=== PATIENT | female | born 1960 | race Caucasian/White ===

== ENCOUNTER 2016-11-19 06:24 | Emergency (ER) | payer BC ==
[2016-11-19 06:32] VITALS: RESP 18
[2016-11-19] MEDS ORDERED: KETOROLAC 60 MG/2 ML VIAL IM STA (07:39)
[2016-11-19] MEDS ORDERED: predniSONE 20 MG TAB PO STA (07:39)
[2016-11-19] MEDS ORDERED: HYDROmorphone 2 MG/ML 1 ML SYRINGE IM STA (07:39)
--- NOTE | 2016-11-19 08:25 | XR ---
EXAMINATION TYPE: XR lumbosacral spine min 4V DATE OF EXAM: 11/19/2016 8:19 AM CLINICAL HISTORY: Low back pain for 3 weeks. TECHNIQUE: Frontal, lateral, and oblique images of the lumbar spine are obtained. COMPARISON: CT lumbar spine September 11, 2011. FINDINGS: There are 5 lumbar type vertebral bodies identified. The lumbar spine shows satisfactory alignment without evidence of acute fracture or dislocation. Vertebral body heights are within normal limits. There is mild multilevel disc space narrowing and spurring throughout the lumbar spine. Mild facet degenerative changes are felt present in lower lumbar spine. Cholecystectomy clips are seen in the overlying soft tissue. IMPRESSION: No acute fracture or dislocation is seen in the lumbar spine. Mild multilevel degenerati ve changes most pronounced in lower lumbar levels are redemonstrated.
[2016-11-19 08:27] LABS: Appearance,Urine Cloudy (Clear); Bacteria,Urine Rare /hpf; Bilirubin,Urine Negative (Negative); Glucose,Urine (UA) Negative (Negative); Ketones,Urine Negative (Negative); Leukocyte Esterase,Urine Negative (Negative); Mucus,Urine Occasional /hpf; Nitrite,Urine Negative (Negative); PH, Urine 5.5 (5.0-8.0); Particle Count 6930; Protein,Urine Trace (Negative); RBC,Urine 2 /hpf (0-5); Specific Gravity,Urine 1.024 (1.001-1.035); Squamous Epithelial Cell,Urine 2 /hpf (0-4); UA Billing (MACRO vs. MICRO) MICRO; Urobilinogen,Urine <2.0 mg/dL (<2.0); WBC,Urine 4 /hpf (0-5)
--- NOTE | 2016-11-19 09:26 | US ---
EXAMINATION TYPE: US venous doppler duplex LE LT DATE OF EXAM: 11/19/2016 8:55 AM COMPARISON: US on PACS CLINICAL HISTORY: Left knee pain radiating up thigh x 2 days. SIDE PERFORMED: Left VESSELS IMAGED: Common Femoral Vein Deep Femoral Vein Greater Saphenous Vein * Femoral Vein Popliteal Vein Small Saphenous Vein * Proximal Calf Veins (* superficial vessels) Grayscale, color Doppler, spectral Doppler imaging performed of the deep veins of the left lower extr emity. No abnormal luminal echoes, there is normal compression of the evaluated veins, normal spectra l waveforms and color-flow. Left Leg: Negative for DVT IMPRESSION: No evidence of deep venous thrombosis within the left lower extremity veins as described at or above the knee.
--- NOTE | 2016-11-19 09:30 | ED ---
General Adult HPI - General Chief complaint: Extremity Problem,Nontraumatic Stated complaint: leg pain Time Seen by Provider: 11/19/16 07:27 Source: patient, RN notes reviewed, old records reviewed Mode of arrival: wheelchair Limitations: no limitations - History of Present Illness Initial comments: This is a 56-year-old female in the ER for evaluation. Patient coming in here for evaluation of left anterior leg pain lateral leg pain severe shooting pain and numbness. Fullness. Patient is morbidly obese. Patient denies any trauma to the area. No trauma the back. No loss of bowel or bladder. No abdominal pain. No weakness in the leg, patient's able to actually the pain is worse with ambulation. Patient denies wearing tight clothes recently. Patient denies any history of similar symptoms. - Related Data Home Medications Medication Instructions Recorded Confirmed Acetaminophen Tab [Tylenol Tab] 1,000 mg PO Q6HR PRN 11/19/16 11/19/16 Hydrocodone/Acetaminophen [Vicodin 1 tab PO DAILY PRN 11/19/16 11/19/16 5-300 mg Tablet] Ibuprofen [Motrin] 800 mg PO Q8H PRN 11/19/16 11/19/16 Levothyroxine Sodium [Synthroid] 200 mcg PO DAILY 11/19/16 11/19/16 Lisinopril/Hydrochlorothiazide 1 tab PO DAILY 11/19/16 11/19/16 [Lisinopril-Hctz 20-12.5 mg Tab] buPROPion HCL [Bupropion HCl] 100 mg PO TID 11/19/16 11/19/16 Allergies Allergy/AdvReac Type Severity Reaction Status Date / Time No Known Allergies Allergy Verified 11/19/16 07:24 Review of Systems ROS Statement: Those systems with pertinent positive or pertinent negative responses have been documented in the HPI. ROS Other: All systems not noted in ROS Statement are negative. Past Medical History Past Medical History: Hypertension, Thyroid Disorder History of Any Multi-Drug Resistant Organisms: None Reported Past Surgical History: Section, Cholecystectomy Additional Past Surgical History / Comment(s): thryoidectomy, c-sect x 2 Past Psychological History: Depression Smoking Status: Never smoker Past Alcohol Use History: None Reported Past Drug Use History: None Reported General Exam - General Exam Comments Initial Comments: Paresthesias over her anterior lateral left thigh, no findings of bursitis and greater trochanter, no rash Limitations: no limitations General appearance: alert, in no apparent distress Head exam: Present: atraumatic, normocephalic, normal inspection Eye exam: Present: normal appearance, PERRL, EOMI. Absent: scleral icterus, conjunctival injection, periorbital swelling ENT exam: Present: normal exam, mucous membranes moist Neck exam: Present: normal inspection. Absent: tenderness, meningismus, lymphadenopathy Respiratory exam: Present: normal lung sounds bilaterally. Absent: respiratory distress, wheezes, rales, rhonchi, stridor Cardiovascular Exam: Present: regular rate, normal rhythm, normal heart sounds. Absent: systolic murmur, diastolic murmur, rubs, gallop, clicks GI/Abdominal exam: Present: soft, normal bowel sounds. Absent: distended, tenderness, guarding, rebound, rigid Extremities exam: Present: normal inspection, full ROM, normal capillary refill. Absent: tenderness, pedal edema, joint swelling, calf tenderness Back exam: Present: normal inspection Neurological exam: Present: alert, oriented X3, CN II-XII intact Psychiatric exam: Present: normal affect, normal mood Skin exam: Present: warm, dry, intact, normal color. Absent: rash Course Vital Signs 11/19/16 06:28 Temperature 97.6 F Pulse Rate 71 Respiratory 18 Rate Blood Pressure 146/68 O2 Sat by Pulse 96 Oximetry - Reevaluation(s) Reevaluation #1: 11/19/16 09:29 Patient's pain at this time is improved Medical Decision Making - Medical Decision Making 56 female who is morbidly obese coming with left anterior thigh pain. Patient does appear to have meralgia paresthetica, lateral femoral cutaneous nerve syndrome. Patient at this time is pain is pain controlled will be discharged home - Lab Data Lab Results 11/19/16 Range/Units 07:50 Urine Color Yellow Urine Appearance Cloudy H (Clear) Urine pH 5.5 (5.0-8.0) Ur Specific [place] 1.024 (1.001-1.035) Urine Protein Trace H (Negative) Urine Glucose (UA) Negative (Negative) Urine Ketones Negative (Negative) Urine Blood Trace H (Negative) Urine Nitrate Negative (Negative) Urine Bilirubin Negative (Negative) Urine Urobilinogen <2.0 (<2.0) mg/dL Ur Leukocyte Esterase Negative (Negative) Urine RBC 2 (0-5) /hpf Urine WBC 4 (0-5) /hpf Ur Squamous Epith Cells 2 (0-4) /hpf Urine Bacteria Rare H (None) /hpf Hyaline Casts 5 H (0-2) /lpf Urine Mucus Occasional H (None) /hpf - Radiology Data Radiology results: report reviewed (X-ray lumbosacral spine negative for acute disease, ultrasound left lower extremity is negative for DVT), image reviewed Disposition Clinical 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
[2016-11-19] MEDS ORDERED: diphenhydrAMINE 25 MG CAP PO STA (09:43)
[2016-11-19] MEDS ORDERED: ONDANSETRON ODT 4 MG TAB PO STA (09:43)
[2016-11-19 09:48] VITALS: BP 134/69; PULSE 79; TEMP 97.4
== END 2016-11-19 09:48 | disposition home or self-care (01) ==
LOC: EC 06:24
DX: G57.12 Meralgia paresthetica, left lower limb (principal); M51.86 Other intervertebral disc disorders, lumbar region; E66.01 Morbid (severe) obesity due to excess calories; I10 Essential (primary) hypertension; E07.9 Disorder of thyroid, unspecified; F32.9 Major depressive disorder, single episode, unspecified; Z79.899 Other long term (current) drug therapy; Z79.52 Long term (current) use of systemic steroids
CPT/HCPCS: 96372 ×3; 99284 ×2; 81001; 87086; 72110; 93971; J1170; J1885; J7512

== ENCOUNTER → 2017-01-05 | Outpatient (CLI) | payer BC ==
--- NOTE | 2017-01-05 11:07 | XR ---
EXAMINATION TYPE: XR lumbar spine 2 or 3V DATE OF EXAM: 01/05/2017 10:54 AM COMPARISON: NONE HISTORY: Low back pain radiating to left TECHNIQUE: 3 view lumbar spine FINDINGS: There is narrowing of the L5-S1 disc height. Remaining disc heights are preserved. Vertebra l body heights are preserved. There is spondylosis present. 5 lumbar-type vertebral bodies are presen t. Pedicles are intact. IMPRESSION: 1. Degenerative disc changes L5-S1
--- NOTE | 2017-01-05 11:08 | XR ---
EXAMINATION TYPE: XR Hip Complete LT DATE OF EXAM: 01/05/2017 10:54 AM COMPARISON: NONE HISTORY: Left hip pain TECHNIQUE: 2 views left hip FINDINGS: Joint spaces preserved. Femoral head articulates with the acetabulum. No acute fractures ar e evident. IMPRESSION: 1. Normal 2 view left hip
== END ==
LOC: RADXRMAIN 10:32
PROVIDERS: ATTEND Internal Medicine
DX: M25.552 Pain in left hip (principal); M51.37 Other intervertebral disc degeneration, lumbosacral region
CPT/HCPCS: 72100; 73502

== ENCOUNTER → 2017-03-25 | Outpatient (CLI) | payer BC ==
--- NOTE | 2017-03-26 12:52 | MM ---
Reason for exam: screening (asymptomatic). Last mammogram was performed 1 year ago. History: Patient had first child at age 36. Family history of breast cancer in maternal aunt at age 55. 2 benign excisional biopsies of the left breast, 1995. Took hormonal contraceptives for 7 years beginning at age 28. Physical Findings: A clinical breast exam by your physician is recommended on an annual basis and results should be correlated with mammographic findings. MG Screening Mammo w CAD Bilateral CC and MLO view(s) were taken. Prior study comparison: March 15, 2016, bilateral MG 3d diag mammo w/cad [facility]. March 09, 2015, bilateral MG screening mammo w CAD. March 08, 2014, bilateral MG screening mammo w CAD. The breast tissue is almost entirely fat. No significant changes when compared with prior studies. ASSESSMENT: Negative, BI-RAD 1 RECOMMENDATION: Routine screening mammogram of both breasts in 1 year.
== END ==
LOC: RADMAMWWP 09:39
PROVIDERS: ATTEND Internal Medicine
DX: Z12.31 Encounter for screening mammogram for malignant neoplasm of breast (principal)

== ENCOUNTER → 2017-07-10 | Outpatient (CLI) | payer BC ==
[2017-07-11 00:44] LABS: Estradiol 54.8 pg/mL
== END | disposition home or self-care (01) ==
LOC: MMGSC 13:47
PROVIDERS: ATTEND Obstetrics & Gynecology
DX: Z78.0 Asymptomatic menopausal state (principal)
CPT/HCPCS: 36415; 82670; 83001

== ENCOUNTER → 2017-08-09 | Outpatient (CLI) | payer BC ==
[2017-08-09 13:06] LABS: Basophils % (A) 1 %; CH 29.6; CHCM 31.7; Eosinophils # (A) 0.3 k/uL (0-0.7); Eosinophils % (A) 3 %; HDW 2.71; HGB 13.6 gm/dL (11.4-16.0); Hypochromasia Slight; Luc # (Auto) 0.11; Luc % (Auto) 1; Lymphocytes # (A) 3.2 k/uL (1.0-4.8); Lymphocytes % (A) 36 %; MCH 30.4 pg (25.0-35.0); MCHC 32.3 g/dL (31.0-37.0); MCV 93.9 fL (80.0-100.0); Monocytes # (A) 0.4 k/uL (0-1.0); Monocytes % (A) 4 %; Neutrophils # (A) 4.9 k/uL (1.3-7.7); Neutrophils % (A) 55 %; RBC 4.48 m/uL (3.80-5.40); RDW 14.1 % (11.5-15.5); WBC 8.8 k/uL (3.8-10.6); WBC (Perox) 8.89
--- NOTE | 2017-08-15 17:13 | HP ---
HISTORY AND PHYSICAL DATE OF ADMISSION: 08/19/2017. HISTORY: This is a 56-year-old, 3, para 2-0-1-2 woman with postmenopausal bleeding. She was found on endometrial biopsy to have a simple endometrial hyperplasia without atypia. She is scheduled to undergo diagnostic hysteroscopy and D and C. ALLERGY: LORTAB CAUSES VOMITING. MEDICATIONS: 1. Lisinopril/hydrochlorothiazide 20/12.5 mg. 2. Motrin 800 mg p.r.n. 3. Wellbutrin 200 mg daily. 4. [place] 5/325 mg p.r.n. PAST MEDICAL HISTORY: Obesity, hypothyroidism, hypertension, depression, and arthritis. PAST SURGICAL HISTORY: D and C, 2007 and 1995, partial thyroidectomy, knee replacement, hip replacement, hernia surgery, and section. 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 She is a G3, P2 with a history of two sections and one miscarriage. SOCIAL HISTORY: She is . Negative for tobacco, alcohol, and drug use. FAMILY HISTORY: Significant for aunt with breast cancer. Father with diabetes. REVIEW OF SYSTEMS: Negative for weight gain, weight loss, fevers, chills, nausea, vomiting, constipation, diarrhea, pelvic or abdominal pain, headaches, or visual changes. Positive for vaginal bleeding. PHYSICAL EXAM: Blood pressure 136/82, height 5 feet 6 inches, weight 302 pounds. Pulse 88. In general, this is a pleasant, obese female in no apparent distress. HEENT exam is unremarkable. The lungs are clear to auscultation bilaterally. The heart is regular rate and rhythm. ABDOMEN: Obese with pannus. It is soft and nontender. On pelvic examination, she has normal female external genitalia without lesions or irritation. On speculum exam, the vagina and cervix appear grossly normal. Bimanual examination is entirely limited secondary to the patient's body habitus. However, no gross abnormalities are palpable. Neurologically, she is grossly intact. Mood and affect are normal. ASSESSMENT: 56-year-old, 3, para 2 woman with postmenopausal bleeding and findings of simple endometrial hyperplasia without atypia on endometrial biopsy. She is scheduled to undergo diagnostic hysteroscopy with D and C for further diagnosis and treatment. This procedure, anticipated recovery time and risks have been reviewed. Risks include, but are not limited to, bleeding, transfusion, infection, damage to bowel, bladder, ureters, uterus, or other pelvic structures. She understands risks associated with anesthesia as well as DVT or PE. Patient understands these risks and agrees to proceed. She is scheduled on 08/19/2017. MMODL / IJN: [id number] /
== END | disposition home or self-care (01) ==
LOC: LABPAT 12:32
PROVIDERS: ATTEND Obstetrics & Gynecology
DX: Z01.810 Encounter for preprocedural cardiovascular examination (principal); I10 Essential (primary) hypertension; N85.00 Endometrial hyperplasia, unspecified; Z01.812 Encounter for preprocedural laboratory examination
CPT/HCPCS: 36415; 85025; 93005

== ENCOUNTER 2017-08-19 08:35 | Day surgery (SDC) | payer BC ==
[2017-08-13 13:07] VITALS: BMI 44.1
[~2017-08-19 08:35] MED LIST: DEXAMETHASONE SOD PHOSPHATE 10 MG/ML 1 ML VIAL IV ONE; LACTATED RINGERS 1,000 ML IV SCH; LIDOCAINE 1% 20 ML VIAL (10MG/ML) FOR IV START INTRADERMA PRN; ONDANSETRON 4 MG/2 ML VIAL IVP ONE; Pre Op ABX Message 1 EACH MISC MISCELLANE ONE; SCOPOLAMINE 1.5MG/72HR PATCH TRANSDERM ONE
[2017-08-19] MEDS ORDERED: MIDAZOLAM 2 MG/2 ML VIAL IV ONE (10:28)
[2017-08-19] MEDS ORDERED: MIDAZOLAM 2 MG/2 ML VIAL ONE (10:53)
[2017-08-19] MEDS ORDERED: fentaNYL (PF) 50 MCG/ML 2 ML AMP ONE (10:53)
[2017-08-19] MEDS ORDERED: LIDOCAINE 1% INJ 10MG/ML (20 ML MDV) ONE (10:53)
[2017-08-19] MEDS ORDERED: SUCCINYLCHOLINE CHLORIDE 100 MG/5 ML SYR IV ONE (10:53)
[2017-08-19] MEDS ORDERED: KETOROLAC 30 MG/ML 1 ML VIAL ONE (10:53)
[2017-08-19] MEDS ORDERED: PROPOFOL 10 MG/ML 20 ML VIAL IV ONE (10:53)
[2017-08-19] MEDS ORDERED: HYDROmorphone (PF) 1 MG/ML ONE (10:53)
[2017-08-19] MEDS ORDERED: LACTATED RINGERS 1,000 ML IV ONE (11:17)
[2017-08-19] MEDS ORDERED: BUPIVACAINE-EPI 0.5%-1:200,000 10 ML VIAL SQ ONE (11:21)
--- NOTE | 2017-08-19 11:21 | P.OP ---
Date of Procedure: 08/19/17 Preoperative Diagnosis: simple endometrial hyperplasia or Postoperative Diagnosis: same Procedure(s) Performed: diagnostic hysteroscopy with dilation and curettage Anesthesia: VALORIE Surgeon: Claribel Wright Estimated Blood Loss (ml): 10 IV fluids (ml): 550 Urine output (ml): 100 Pathology: other (endometrial curettings) Condition: stable Disposition: PACU Operative Findings: enlarged uterus with sounded to 11 cm. Endometrium with a few small polypoid projections. bilateral tubal ostia visualized. Description of Procedure: after the patient was met in the preoperative holding area and all questions were answered, she was taken to the operating room where anesthetic was administered without incident. She was in positioned, prepped and draped in the dorsal lithotomy position. Exam under anesthetic was undertaken however limited secondary to patient's body habitus. Single-sided speculum was placed in the vagina and the cervix was grasped anteriorly with single-tooth tenaculum. Paracervical block with lidocaine plus epinephrine was placed. The uterus was sounded to 11 cm. The cervix was easily dilated to 20-Turkmen. The diagnostic hysteroscope was then introduced and the above findings were noted. The hysteroscope was removed and the sharp banjo curette was introduced. The endometrial cavity was then circumferentially curettaged with endometrial tissue obtained. Tissue was handed off as pathology specimen. Instruments removed from the cervix. Cervix was observed and no active bleeding was noted. Instruments removed from the vagina. All counts reported to me as correct. The patient was transported to recovery area in stable condition.
[2017-08-19 11:36] VITALS: TEMP 97
[2017-08-19] MEDS: HYDROmorphone 0.5 MG/0.5 ML SYRINGE IVP PRN ×2 (11:43→11:49)
[2017-08-19 11:47] VITALS: RESP 16
[2017-08-19 12:24] VITALS: BP 118/76; PULSE 78
[2017-08-19] MEDS ORDERED: ACETAMINOPHEN TAB 325 MG TAB PO ONE (12:26)
== END 2017-08-19 13:19 | disposition home or self-care (01) ==
LOC: OR 08:35
PROVIDERS: ATTEND Obstetrics & Gynecology
DX: N85.01 Benign endometrial hyperplasia (principal); E66.01 Morbid (severe) obesity due to excess calories; Z68.41 Body mass index [BMI] 40.0-44.9, adult; E03.9 Hypothyroidism, unspecified; I10 Essential (primary) hypertension; F32.9 Major depressive disorder, single episode, unspecified; M19.90 Unspecified osteoarthritis, unspecified site; Z79.899 Other long term (current) drug therapy; Z88.8 Allergy status to other drugs, medicaments and biological substances
CPT/HCPCS: 58558; 81025; 88305; J2250; J1100; J2405; J2001; J3010; J1885; J1170 ×2; J0330; J2704

== ENCOUNTER 2018-03-29 08:24 | Emergency (ER) | payer OTHER ==
[2018-03-29] MEDS ORDERED: NITROGLYCERIN SL TABS 0.4 MG TAB SUBLINGUAL STA ×3 (08:47)
[2018-03-29] MEDS ORDERED: ASPIRIN 81 MG PO STA (08:47)
--- NOTE | 2018-03-29 08:50 | ED ---
General Adult HPI - General Chief complaint: Chest Pain Stated complaint: Chest Pressure Time Seen by Provider: 03/29/18 08:33 Source: patient, family, RN notes reviewed Mode of arrival: wheelchair Limitations: no limitations - History of Present Illness Initial comments: Patient is a pleasant 57-year-old female presenting to the emergency Department with chest discomfort. Onset of symptoms was a couple of months ago. Symptoms have been continuing. Discomfort is currently rated 6/10. Discomfort feels like pressure. Patient does have associated nausea. Patient feels lightheaded. Patient also feels short of breath. Patient has sweaty palms at times. Patient also has tingling of her arms, bilateral at times. Patient denies feeling stressed or anxious. Patient states this is her normal state. Last stress test was approximately one and a half years ago. - Related Data Home Medications Medication Instructions Recorded Confirmed Levothyroxine Sodium [Synthroid] 200 mcg PO DAILY 11/19/16 03/29/18 buPROPion HCL [Bupropion HCl] 100 mg PO TID 11/19/16 03/29/18 Calcium Phos/Vit D3/Mag Oxide 1 tab PO DAILY 03/29/18 03/29/18 [Posture-D [place]] Cyanocobalamin [Vitamin B-12] 500 mcg PO DAILY 03/29/18 03/29/18 Dina 500 mg PO DAILY 03/29/18 03/29/18 Lisinopril [Zestril] 10 mg PO DAILY 03/29/18 03/29/18 Progesterone, Micronized 200 mg PO HS 03/29/18 03/29/18 [Progesterone] Pyridoxine [Vitamin B-6] 50 mg PO DAILY 03/29/18 03/29/18 Allergies Allergy/AdvReac Type Severity Reaction Status Date / Time acetaminophen [From Lortab] AdvReac Nausea & Verified 03/29/18 13:30 Vomiting hydrocodone [From Lortab] AdvReac Nausea & Verified 03/29/18 13:30 Vomiting Review of Systems ROS Statement: Those systems with pertinent positive or pertinent negative responses have been documented in the HPI. ROS Other: All systems not noted in ROS Statement are negative. Constitutional: Denies: fever Eyes: Denies: eye pain ENT: Denies: ear pain Respiratory: Reports: dyspnea Cardiovascular: Reports: chest pain, palpitations Endocrine: Reports: fatigue Gastrointestinal: Reports: nausea Genitourinary: Denies: dysuria Musculoskeletal: Denies: back pain Skin: Denies: rash Neurological: Denies: headache Psychiatric: Denies: anxiety Past Medical History Past Medical History: Hypertension, Thyroid Disorder History of Any Multi-Drug Resistant Organisms: None Reported Past Surgical History: Section, Cholecystectomy Additional Past Surgical History / Comment(s): thryoidectomy, c-sect x 2 Past Anesthesia/Blood Transfusion Reactions: Postoperative Nausea & Vomiting ( PONV) Past Psychological History: Depression Smoking Status: Never smoker Past Alcohol Use History: None Reported Past Drug Use History: None Reported - Past Family History Mother Family Medical History: No Reported History General Exam Limitations: no limitations General appearance: alert, in no apparent distress, anxious Head exam: Present: atraumatic Eye exam: Present: normal appearance Neck exam: Present: normal inspection Respiratory exam: Present: normal lung sounds bilaterally. Absent: chest wall tenderness Cardiovascular Exam: Present: regular rate, normal rhythm Expanded Peripheral pulses: 2+: Radial (R), Radial (L), Dorsalis Pedis (R), Dorsalis Pedis (L) GI/Abdominal exam: Present: soft. Absent: tenderness Extremities exam: Present: normal inspection. Absent: pedal edema, calf tenderness Neurological exam: Present: alert Psychiatric exam: Present: anxious Skin exam: Present: normal color Course Vital Signs 03/29/18 03/29/18 03/29/18 08:27 09:20 11:28 Temperature 97.4 F L Pulse Rate 79 72 65 Respiratory 16 18 18 Rate Blood Pressure 135/81 113/58 111/55 O2 Sat by Pulse 98 97 98 Oximetry - Reevaluation(s) Reevaluation #1: 03/29/18 11:11 Case was discussed in detail with Dr. Monae who did come evaluate patient for possible admission. Patient refused admission. They did have a discussion and agreed to have repeat troponin level done around 1 PM. He states if patient has negative troponin she should be discharged and follow-up with the office on Saturday to schedule stress testing for beginning of the week. 03/29/18 14:14 Patient was again reevaluated and resting comfortably in bed. No discomfort at this time. Patient is updated on results. Patient was arty made aware plan. Patient is requesting discharge. Patient is made aware of limitations of testing and emergency department. Patient is already aware however is repeated need for close follow-up and stress test beginning of the week. EKG Findings - EKG Comments: EKG Findings:: Normal sinus rhythm 86. NC 136. QRS 78. QT 388. QTC 464. Normal axis. Normal QRS. Nonspecific T waves. Medical Decision Making - Lab Data Result diagrams: 03/29/18 09:15 03/29/18 09:15 Lab Results 03/29/18 03/29/18 03/29/18 Range/Units 09:15 09:15 09:15 WBC 6.4 (3.8-10.6) k/uL RBC 4.42 (3.80-5.40) m/uL Hgb 13.1 (11.4-16.0) gm/dL Hct 39.0 (34.0-46.0) % MCV 88.3 (80.0-100.0) fL MCH 29.7 (25.0-35.0) pg MCHC 33.7 (31.0-37.0) g/dL RDW 14.0 (11.5-15.5) % Plt Count 315 (150-450) k/uL Neutrophils % 52 % Lymphocytes % 38 % Monocytes % 5 % Eosinophils % 3 % Basophils % 1 % Neutrophils # 3.3 (1.3-7.7) k/uL Lymphocytes # 2.5 (1.0-4.8) k/uL Monocytes # 0.3 (0-1.0) k/uL Eosinophils # 0.2 (0-0.7) k/uL Basophils # 0.0 (0-0.2) k/uL PT (9.0-12.0) sec INR (<1.2) APTT (22.0-30.0) sec D-Dimer (<0.60) mg/L FEU Sodium 143 (137-145) mmol/L Potassium 4.0 (3.5-5.1) mmol/L Chloride 106 (98-107) mmol/L Carbon Dioxide 25 (22-30) mmol/L Anion Gap 12 mmol/L BUN 25 H (7-17) mg/dL Creatinine 0.80 (0.52-1.04) mg/dL Est GFR (CKD-EPI)AfAm >90 (>60 ml/min/1.73 sqM) Est GFR (CKD-EPI)NonAf 82 (>60 ml/min/1.73 sqM) Glucose 95 (74-99) mg/dL Calcium 9.6 (8.4-10.2) mg/dL Magnesium 1.8 (1.6-2.3) mg/dL Total Bilirubin 0.5 (0.2-1.3) mg/dL AST 22 (14-36) U/L ALT 29 (9-52) U/L Alkaline Phosphatase 72 (38-126) U/L Total Creatine Kinase 82 (30-135) U/L CK-MB (CK-2) 1.2 (0.0-2.4) ng/mL CK-MB (CK-2) Rel Index 1.5 Troponin I <0.012 (0.000-0.034) ng/mL Total Protein 6.3 (6.3-8.2) g/dL Albumin 3.7 (3.5-5.0) g/dL 03/29/18 03/29/18 Range/Units 09:15 12:39 WBC (3.8-10.6) k/uL RBC (3.80-5.40) m/uL Hgb (11.4-16.0) gm/dL Hct (34.0-46.0) % MCV (80.0-100.0) fL MCH (25.0-35.0) pg MCHC (31.0-37.0) g/dL RDW (11.5-15.5) % Plt Count (150-450) k/uL Neutrophils % % Lymphocytes % % Monocytes % % Eosinophils % % Basophils % % Neutrophils # (1.3-7.7) k/uL Lymphocytes # (1.0-4.8) k/uL Monocytes # (0-1.0) k/uL Eosinophils # (0-0.7) k/uL Basophils # (0-0.2) k/uL PT 9.9 (9.0-12.0) sec INR 1.0 (<1.2) APTT 23.4 (22.0-30.0) sec D-Dimer 0.37 (<0.60) mg/L FEU Sodium (137-145) mmol/L Potassium (3.5-5.1) mmol/L Chloride (98-107) mmol/L Carbon Dioxide (22-30) mmol/L Anion Gap mmol/L BUN (7-17) mg/dL Creatinine (0.52-1.04) mg/dL Est GFR (CKD-EPI)AfAm (>60 ml/min/1.73 sqM) Est GFR (CKD-EPI)NonAf (>60 ml/min/1.73 sqM) Glucose (74-99) mg/dL Calcium (8.4-10.2) mg/dL Magnesium (1.6-2.3) mg/dL Total Bilirubin (0.2-1.3) mg/dL AST (14-36) U/L ALT (9-52) U/L Alkaline Phosphatase (38-126) U/L Total Creatine Kinase (30-135) U/L CK-MB (CK-2) (0.0-2.4) ng/mL CK-MB (CK-2) Rel Index Troponin I <0.012 (0.000-0.034) ng/mL Total Protein (6.3-8.2) g/dL Albumin (3.5-5.0) g/dL - Radiology Data Radiology results: image reviewed (Chest x-ray shows no acute process) Disposition Clinical Impression: Chest pain Disposition: HOME SELF-CARE Condition: Stable Instructions: Chest Pain (ED) Additional Instructions: Please follow-up Saturday morning with Dr. Calderón or Dr. Monae and scheduled for stress test for the beginning of this week. You will need further evaluation. Return for any chest discomfort, difficulty in breathing, nausea, sweating or lightheadedness, worsening symptoms or any other concerns. Aspirin daily. Is patient prescribed a controlled substance at d/c from ED?: No Referrals: Rajan Calderón MD [Primary Care Provider] - 1-2 days Time of Disposition: 14:15
[2018-03-29 09:21] VITALS: RESP 18
[2018-03-29 09:33] LABS: Basophils % (A) 1 %; Eosinophils # (A) 0.2 k/uL (0-0.7); Eosinophils % (A) 3 %; HGB 13.1 gm/dL (11.4-16.0); Lymphocytes # (A) 2.5 k/uL (1.0-4.8); Lymphocytes % (A) 38 %; MCH 29.7 pg (25.0-35.0); MCHC 33.7 g/dL (31.0-37.0); MCV 88.3 fL (80.0-100.0); Mean Platelet Volume 6.5; Monocytes # (A) 0.3 k/uL (0-1.0); Monocytes % (A) 5 %; Neutrophils # (A) 3.3 k/uL (1.3-7.7); Neutrophils % (A) 52 %; Platelet Count 315 k/uL (150-450); RBC 4.42 m/uL (3.80-5.40); WBC 6.4 k/uL (3.8-10.6)
[2018-03-29 09:46] LABS: D-Dimer 0.37 mg/L FEU (<0.60); Partial Thromboplastin Time 23.4 sec (22.0-30.0); Prothrombin Time 9.9 sec (9.0-12.0)
[2018-03-29 09:47] LABS: ALT 29 U/L (9-52); AST 22 U/L (14-36); Albumin 3.7 g/dL (3.5-5.0); Alkaline Phosphatase 72 U/L (38-126); Anion Gap 12 mmol/L; Blood Urea Nitrogen 25 mg/dL (7-17); Calcium 9.6 mg/dL (8.4-10.2); Carbon Dioxide 25 mmol/L (22-30); Chloride 106 mmol/L (98-107); Glucose 95 mg/dL (74-99); Magnesium 1.8 mg/dL (1.6-2.3); Sodium 143 mmol/L (137-145); Total Bilirubin 0.5 mg/dL (0.2-1.3); Total Protein 6.3 g/dL (6.3-8.2)
--- NOTE | 2018-03-29 09:53 | XR ---
EXAMINATION TYPE: XR chest 2V DATE OF EXAM: 03/29/2018 COMPARISON: 10/18/2015 HISTORY: Chest pain TECHNIQUE: Frontal and lateral views of the chest are obtained. FINDINGS: There is no focal air space opacity, pleural effusion, or pneumothorax seen. The cardiac silhouette size is within normal limits. The osseous structures are intact. Cholecystectomy clips r eside within the right upper quadrant. IMPRESSION: No acute cardiopulmonary process.
[2018-03-29 10:12] LABS: Creatine Kinase 82 U/L (30-135)
[2018-03-29 10:23] LABS: Creatine Kinase MB 1.2 ng/mL (0.0-2.4); Troponin I <0.012 ng/mL (0.000-0.034)
[2018-03-29 14:33] VITALS: BP 104/54; PULSE 68; TEMP 98.3
== END 2018-03-29 14:34 | disposition home or self-care (01) ==
LOC: EC 08:24
DX: R07.89 Other chest pain (principal); R42 Dizziness and giddiness; R06.02 Shortness of breath; R20.2 Paresthesia of skin; R11.0 Nausea; I10 Essential (primary) hypertension; E07.9 Disorder of thyroid, unspecified; F32.9 Major depressive disorder, single episode, unspecified; Z79.890 Hormone replacement therapy; Z79.899 Other long term (current) drug therapy; Z88.6 Allergy status to analgesic agent; Z88.5 Allergy status to narcotic agent; Z53.20 Procedure and treatment not carried out because of patient's decision for unspecified reasons
CPT/HCPCS: 36415; 71046; 80053; 82550; 82553; 83735; 84484; 85025; 85379; 85610; 85730; 93005; 99285

== ENCOUNTER → 2018-04-30 | Outpatient (CLI) | payer OTHER ==
--- NOTE | 2018-05-01 10:38 | MM ---
Reason for exam: screening (asymptomatic). Last mammogram was performed 1 year and 1 month ago. History: Patient is postmenopausal and had first child at age 36. Family history of breast cancer in maternal aunt at age 55. 2 benign excisional biopsies of the left breast, 1995. Took hormonal contraceptives for 7 years beginning at age 28. Taking progesterone for 6 years. Physical Findings: A clinical breast exam by your physician is recommended on an annual basis and results should be correlated with mammographic findings. MG Screening Mammo w CAD Bilateral CC and MLO view(s) were taken. Prior study comparison: March 25, 2017, bilateral MG screening mammo w CAD. March 15, 2016, bilateral MG 3d diag mammo w/cad [facility]. There are scattered fibroglandular densities. There is no discrete abnormality. No significant changes when compared with prior studies. ASSESSMENT: Negative, BI-RAD 1 RECOMMENDATION: Routine screening mammogram of both breasts in 1 year.
== END | disposition home or self-care (01) ==
LOC: RADMAMWWP 14:09
PROVIDERS: ATTEND Internal Medicine
DX: Z12.31 Encounter for screening mammogram for malignant neoplasm of breast (principal)
CPT/HCPCS: 77067

== ENCOUNTER → 2019-02-24 | Outpatient (CLI) | payer SELFPAY ==
--- NOTE | 2019-02-27 14:35 | CT ---
EXAMINATION TYPE: CT heart w calcium score DATE OF EXAM: 02/24/2019 COMPARISON: CT heart w calcium score 02/26/2019 HISTORY: Screening for cardiovascular disorder. 213.9 CT DLP: 101.7 mGycm Automated exposure control for dose reduction was used. CT CALCIUM SCORING Coronary calcium is a marker for plaque (fatty deposits) in a blood vessel or atherosclerosis (harden ing of the arteries). The presence and amount of calcium detected in a coronary artery by the CT sca n, indicates the presence and amount of atherosclerotic plaque. These calcium deposits appear years before the development of heart disease symptoms such as chest pain and shortness of breath. A calcium score is computed for each of the coronary arteries based upon the volume and density of th e calcium deposits. This can be referred to as your calcified plaque burden. It does not correspond directly to the percentage of narrowing in the artery but does correlate with the severity of the un derlying coronary atherosclerosis. PROCEDURE TECHNIQUE - Prospective Gating was used. Slice thickness: 3mm. Density threshold (HU): 130, Pixel threshold: 3, Algorithm: discrete. RESULTS Region: LM Calcium Score ([place]): 0 Volume (mm3): 0 Mass (g): 0 Region: RCA Calcium Score ([place]): 0 Volume (mm3): 0 Mass (g): 0 Region: LAD Calcium Score ([place]): 0 Volume (mm3): 0 Mass (g): 0 Region: CX Calcium Score ([place]): 0 Volume (mm3): 0 Mass (g): 0 Region: PDA Calcium Score ([place]): 0 Volume (mm3): 0 Mass (g): 0 Total: Calcium Score ([place]): 0 Volume (mm3): 0 Mass (g): 0 TOTAL CALCIUM SCORE: 0 IMPRESSION: Calcium Score: 0 Implication: No identifiable plaque. Risk of Coronary Artery Disease: Very low, generally less than 5%.
== END | disposition home or self-care (01) ==
LOC: RADCTMAIN 08:36
PROVIDERS: ATTEND Internal Medicine
DX: R07.9 Chest pain, unspecified (principal)
CPT/HCPCS: 75571

== ENCOUNTER → 2019-02-26 | Outpatient (CLI) | payer OTHER ==
--- NOTE | 2019-02-27 14:45 | CT ---
EXAMINATION TYPE: CT heart w calcium score DATE OF EXAM: 02/27/2019 COMPARISON: CT heart w calcium score 02/24/2018 HISTORY: Screening for cardiovascular disorder. 213.9 CT DLP: 115.3 mGycm Automated exposure control for dose reduction was used. See dictated report from 02/24/2019.
== END | disposition home or self-care (01) ==
LOC: RADCTMAIN 15:55
PROVIDERS: ATTEND Internal Medicine
DX: Z53.9 Procedure and treatment not carried out, unspecified reason (principal)
CPT/HCPCS: 75571

== ENCOUNTER → 2019-05-04 | Outpatient (CLI) | payer BC ==
--- NOTE | 2019-05-04 13:47 | BD ---
EXAMINATION TYPE: Bone Density DATE OF EXAM: 05/04/2019 COMPARISON: NONE CLINICAL HISTORY: Known osteoporosis. M 81.0 Height: 65.5 Weight: 285 FRAX RISK QUESTIONS: Alcohol (3 or more units per day): no Family History (Parent hip fracture): no Glucocorticoids (More than 3mos): no (Ex: prednisone, prednisolone, methylprednisolone, dexamethasone, and hydrocortisone). History of Fracture in Adulthood: yes, ankle age 18 Secondary Osteoporosis: 1. Type 1 Diabetes: no 2. Hyperthyroidism: no 3. Menopause before 45: no 4. Malnutrition: no 5. Chronic liver disease: no Rheumatoid Arthritis: no Current Tobacco Use: no RISK FACTORS HISTORY OF: Family History of Osteoporosis: no Active: yes Diet low in dairy products/other sources of calcium: no Postmenopausal woman: yes Take estrogen and/or progesterone medications: not now How long: hormonal contraceptives about 7 years; progesterone about 6 months Lost more than 2 inches in height since high school: no, height was about 67 inches at one time Frequent falls: no Poor Health: no Hyperparathyroidism: no Adrenal Insufficiency: no MEDICATIONS: Prednisone or other steroids: no Thyroid Medications: yes Which medication: Synthroid How Long: since 1975 Osteoporosis Medications: no Additional Medications: blood pressure med, calcium & vit D Additional History: history of goiter EXAM MEASUREMENTS: Bone mineral densitometry was performed using the [employer] System. Bone mineral density as measured about the Lumbar spine is: ----- L1-L4(G/cm2): 1.771 T Score Values are as follows: ----- L2: 5.3 ----- L3: 5.3 ----- L4: 5.2 ----- L1-L4: 4.9 Bone mineral density BASELINE Bone mineral density about the R hip (g/cm2): 1.214 Bone mineral density about the L hip (g/cm2): 1.172 T Score values are as follows: -----R Neck: 1.3 -----L Neck: 1.0 -----R Total: 1.4 -----L Total: 1.3 Bone mineral density BASELINE IMPRESSION: Normal (Values between +1 and -1 indicate normal bone mass). Consider repeating this study in 5 year s or sooner if there is some new clinical indication. NOTE: T-SCORE=SD OF THE YOUNG ADULT MEAN.
--- NOTE | 2019-05-05 10:26 | MM ---
Reason for exam: screening (asymptomatic). Last mammogram was performed 1 year ago. History: Patient is postmenopausal and had first child at age 36. Family history of breast cancer in maternal aunt at age 55. 2 benign excisional biopsies of the left breast, 1995. Took hormonal contraceptives for 7 years beginning at age 28. Taking progesterone for 6 years. Physical Findings: A clinical breast exam by your physician is recommended on an annual basis and results should be correlated with mammographic findings. MG Screening Mammo w CAD Bilateral CC and MLO view(s) were taken. Prior study comparison: April 30, 2018, bilateral MG screening mammo w CAD. March 25, 2017, bilateral MG screening mammo w CAD. There are scattered fibroglandular densities. Benign appearing bilateral calcifications. There is chronic nodularity bilaterally. ASSESSMENT: Benign, BI-RAD 2 RECOMMENDATION: Routine screening mammogram of both breasts in 1 year.
== END | disposition home or self-care (01) ==
LOC: RADMAMWWP 09:22
PROVIDERS: ATTEND Internal Medicine
DX: Z12.31 Encounter for screening mammogram for malignant neoplasm of breast (principal); M81.0 Age-related osteoporosis without current pathological fracture
CPT/HCPCS: 77067; 77080

== ENCOUNTER → 2019-08-24 | Outpatient (CLI) | payer BC ==
[~2019-08-24] MED LIST changes: -DEXAMETHASONE SOD PHOSPHATE 10 MG/ML 1 ML VIAL IV ONE; -LACTATED RINGERS 1,000 ML IV SCH; -LIDOCAINE 1% 20 ML VIAL (10MG/ML) FOR IV START INTRADERMA PRN; -ONDANSETRON 4 MG/2 ML VIAL IVP ONE; -Pre Op ABX Message 1 EACH MISC MISCELLANE ONE; +REGADENOSON 0.4 MG/5 ML SYRINGE IV ONE; -SCOPOLAMINE 1.5MG/72HR PATCH TRANSDERM ONE
--- NOTE | 2019-08-24 12:37 | P.STRESS ---
- Stress Test Note Stress Test Results/Findings: Exam Performed: NM stress lexiscan cardiolite Exam Date: 08/24/19 Reason for Exam: Palpitations Height: 5 ft 6 in Weight: 122.47 kg Protocol: Lexiscan Stage: na Duration of Exercise: na Resting Heart Rate: 75 Resting Blood Pressure: 110/57 Maximum Achieved Heart Rate: 108 Maximum Achieved Blood Pressure: 115/55 85% PMHR: 138 100% PMHR: 162 METS: na Technologist Comment: Stress Test Results/Findings: This is a 58-year-old female with history of hypertension being evaluated for symptoms of shortness of breath and palpitations. Stress data: Baseline EKG showed sinus rhythm with normal MD interval and QRS duration with minor nonspecific ST-T changes. Blood pressure at rest is 110/57 with pulse rate of 118. A standard dose of Lexiscan was infused. EKGs taken during and after infusion did not reveal significant changes from the baseline. Final impression #1. Negative Lexiscan stress test #2 Report on the nuclear images to be given by the radiologist
--- NOTE | 2019-08-24 13:18 | NM ---
EXAMINATION TYPE: NM stress lexiscan cardiolite DATE OF EXAM: 08/24/2019 COMPARISON: NONE HISTORY: Shortness of breath, R06.02 TECHNIQUE: After the intravenous administration of 9.8 mCi Tc 99m Sestamibi - Cardiolite resting SPE CT images acquired 50 minutes post injection. The patient received 0.4mg Lexiscan, 23.2 mCi Tc 99m Sestamibi - Stress images obtained [address] injection FINDINGS: Review of stress and rest SPECT images demonstrates decreased uptake along the anteroapical left vent ricle on both stress and rest images. Gated analysis shows normal wall motion with an estimated left ventricular ejection fraction of 54 %. IMPRESSION: No scintigraphic evidence for reversible ischemia. Decreased uptake along the anterior wall anteroapi keena region on stress and rest images could be due to prior infarct.
--- NOTE | 2019-08-25 11:34 | EST ---
Stress Test Results/Findings: Exam Performed: NM stress lexiscan cardiolite Exam Date: 08/24/19 Reason for Exam: Palpitations Height: 5 ft 6 in Weight: 122.47 kg Protocol: Lexiscan Stage: na Duration of Exercise: na Resting Heart Rate: 75 Resting Blood Pressure: 110/57 Maximum Achieved Heart Rate: 108 Maximum Achieved Blood Pressure: 115/55 85% PMHR: 138 100% PMHR: 162 METS: na Technologist Comment: Stress Test Results/Findings: This is a 58-year-old female with history of hypertension being evaluated for symptoms of shortness of breath and palpitations. Stress data: Baseline EKG showed sinus rhythm with normal [place] interval and QRS duration with minor nonspecific ST-T changes. Blood pressure at rest is 110/57 with pulse rate of 118. A standard dose of Lexiscan was infused. EKGs taken during and after infusion did not reveal significant changes from the baseline. Final impression #1. Negative Lexiscan stress test #2 Report on the nuclear images to be given by the radiologist KWAN
== END | disposition home or self-care (01) ==
LOC: RADNMMAIN 07:33
PROVIDERS: ATTEND Internal Medicine
DX: R06.02 Shortness of breath (principal)
CPT/HCPCS: 93017; 78452; A9500; J2785

== ENCOUNTER 2019-09-01 08:08 | Emergency (ER) | payer BC ==
[2019-09-01 08:15] VITALS: TEMP 99
[2019-09-01] MEDS ORDERED: ASPIRIN 81 MG PO STA (08:16)
--- NOTE | 2019-09-01 08:41 | ED ---
Chest Pain HPI - General Chief Complaint: Chest Pain Stated Complaint: Sob/chest pain Time Seen by Provider: 09/01/19 08:16 Source: patient Mode of arrival: wheelchair Limitations: no limitations - History of Present Illness Initial Comments: 58-year-old female past history of hypertension, thyroid disorder, hyperlipidemia presents emergency department today for evaluation of epigastric discomfort and nausea clamminess of the hands bilaterally as well as heart palpitations. Patient states that since January she has had episodes of epigastric or chest pressure, shortness of breath clamminess. At times jaw and neck pain these of which are not happening today. Patient states that she has had a cardiac CT as well as a Nain stress test within the last year which have returned within normal limits. Patient states that she had a stress test performed on 08/24/2019. Patient states that during these episodes she feels as though she is going to . Patient is not sure if this is related to anxiety. Patient states he symptoms frequently occur at rest she denies any pattern with ambulation or exertion. Patient denies any vomiting fevers. She states that her episodes of been increasing for the past week. Denies back pain, flank pain, severe abdominal pain. Patient denies hemoptysis, cancer, DVT/PE hx, leg swelling, calf pain, recent surgery or travel. Patient denies pain with inspiration. Patient denies any new symptoms today. Patient states she presented to the ER given her symptoms have increased in frequency this week. - Related Data Home Medications Medication Instructions Recorded Confirmed buPROPion HCL [Bupropion HCl] 100 mg PO BID 11/19/16 09/01/19 Progesterone, Micronized 200 mg PO HS 03/29/18 09/01/19 [Progesterone] Calcium Carbonate [Calcium] 600 mg PO DAILY 09/01/19 09/01/19 Cholecalciferol (Vitamin D3) 2,000 unit PO DAILY 09/01/19 09/01/19 [Vitamin D3] Latanoprost Ophth [Xalatan 0.005%] 1 drop BOTH EYES HS 09/01/19 09/01/19 Lisinopril-Hctz 20-12.5 mg 1 tab PO DAILY 09/01/19 09/01/19 [Zestoretic 20-12.5] Magnesium Oxide [Mag-Ox] 400 mg PO HS 09/01/19 09/01/19 Metoprolol Succinate (ER) [Toprol 12.5 mg PO DAILY 09/01/19 09/01/19 Xl] Vitamin B Complex 1 cap PO DAILY 09/01/19 09/01/19 Zinc 50 mg PO DAILY 09/01/19 09/01/19 Allergies Allergy/AdvReac Type Severity Reaction Status Date / Time hydrocodone [From Lortab] AdvReac Nausea & Verified 09/01/19 08:46 Vomiting Review of Systems ROS Statement: Those systems with pertinent positive or pertinent negative responses have been documented in the HPI. ROS Other: All systems not noted in ROS Statement are negative. EKG Findings - EKG Comments: EKG Findings:: Ventricular rate 79 bpm, AR interval 144 ms, QRS duration 78 ms, QT/QTC 362/4:15 milliseconds. Normal sinus rhythm. No ST elevation or depression. Nonspecific T-wave. Artifact noted. EKG was personally interpreted and reviewed by my attending provider. Past Medical History Past Medical History: Hypertension, Thyroid Disorder History of Any Multi-Drug Resistant Organisms: None Reported Past Surgical History: Section, Cholecystectomy Additional Past Surgical History / Comment(s): thryoidectomy, c-sect x 2 Past Anesthesia/Blood Transfusion Reactions: Postoperative Nausea & Vomiting (PONV) Past Psychological History: No Psychological Hx Reported, Depression Smoking Status: Never smoker Past Alcohol Use History: None Reported Past Drug Use History: None Reported - Past Family History Mother Family Medical History: No Reported History General Exam - General Exam Comments Initial Comments: General: The patient is awake and alert, in no distress, and does not appear acutely ill. Negative Lugo sign, no noted diaphoresis. Eye: +3 mm pupils are equal, round and reactive to light, extra-ocular movements are intact. No nystagmus. There is normal conjunctiva bilaterally. No signs of icterus. Ears, nose, mouth and throat: There are moist mucous membranes and no oral lesions. Neck: The neck is supple, there is no tenderness or JVD. Cardiovascular: There is a regular rate and rhythm. No murmur, rub or gallop is appreciated. Respiratory: Lungs are clear to auscultation, respirations are non-labored, breath sounds are equal. No wheezes, stridor, rales, or rhonchi. Gastrointestinal: Soft, non-distended, non-tender abdomen without masses or organomegaly noted. There is no rebound or guarding present. No CVA tenderness. Bowel sounds are unremarkable. Musculoskeletal: Normal ROM, no tenderness. Strength 5/5. Sensation intact. Radial and DP pulses equal bilaterally 2+. Neurological: A&O x 3. CN II-XII intact grossly, There are no obvious motor or sensory deficits. Coordination appears grossly intact. Speech is normal. Skin: Skin is warm and dry and no rashes or lesions are noted. No LE edema Psychiatric: Cooperative, appropriate mood & affect, normal judgment. Limitations: no limitations Course Vital Signs 09/01/19 09/01/19 09/01/19 08:10 08:15 08:16 Temperature 99 F Pulse Rate 78 Pulse Rate [ 67 Pulse Oximetery ] Respiratory 18 16 Rate Blood Pressure 99/57 O2 Sat by Pulse 95 Oximetry 09/01/19 09/01/19 09/01/19 08:35 09:00 09:15 Temperature Pulse Rate 71 Pulse Rate [ Pulse Oximetery ] Respiratory 18 16 18 Rate Blood Pressure 110/72 O2 Sat by Pulse 96 Oximetry Chest Pain MDM - MDM 58-year-old female presenting for vague epigastric discomfort, shortness of breath since January. Patient states she has weekly episodes. Patient states is affecting her quality of life. Patient has had cardiac CT with a less than 5% cardiac risk, and recent NAIN scan within last week. Patient has had previous holter. Patient has normal EKG. Troponin (-),symptoms ongoing for past week. Dimer WNL. CXR normal vasculature, heart size with no pleural effusions. VS Stable in ER. Patient asymptomatic on reevaluation. Discussed patient history in detail and presenting history with Dr. Hubbard at this time we feel patient is stable for discharge with outpatient PCP f/u. I recommended cardiology referral from PCP. Patient is agreeable and will be discharged. She is well appearing. Disposition Clinical Impression: Epigastric discomfort, Shortness of breath Disposition: HOME SELF-CARE Condition: Good Instructions (If sedation given, give patient instructions): Chest Pain (ED) Additional Instructions: Please use medication as discussed. Please follow-up with family doctor in the next 24 hours, please obtain cardiology referral. Please return to emergency room if the symptoms increase or worsen or for any other concerns-as discussed. Is patient prescribed a controlled substance at d/c from ED?: No Referrals: Rajan Calderón MD [Primary Care Provider] - 1-2 days Time of Disposition: 10:39
[2019-09-01 09:16] VITALS: PULSE 71
[2019-09-01 09:22] LABS: Basophils # (A) 0.1 k/uL (0-0.2); Basophils % (A) 1 %; Eosinophils # (A) 0.2 k/uL (0-0.7); Eosinophils % (A) 2 %; HCT 42.1 % (34.0-46.0); HGB 14.2 gm/dL (11.4-16.0); Lymphocytes # (A) 2.4 k/uL (1.0-4.8); Lymphocytes % (A) 25 %; MCH 30.6 pg (25.0-35.0); MCHC 33.8 g/dL (31.0-37.0); MCV 90.6 fL (80.0-100.0); Mean Platelet Volume 5.4; Monocytes # (A) 0.5 k/uL (0-1.0); Monocytes % (A) 5 %; Neutrophils # (A) 6.5 k/uL (1.3-7.7); Neutrophils % (A) 67 %; Platelet Count 319 k/uL (150-450); RBC 4.65 m/uL (3.80-5.40); RDW 13.2 % (11.5-15.5); WBC 9.6 k/uL (3.8-10.6)
[2019-09-01 09:29] LABS: INR 0.9 (<1.2); Partial Thromboplastin Time 26.1 sec (22.0-30.0); Prothrombin Time 9.9 sec (9.0-12.0)
[2019-09-01 09:32] LABS: Albumin 3.8 g/dL (3.5-5.0); Calcium 9.5 mg/dL (8.4-10.2); Magnesium 2.1 mg/dL (1.6-2.3); Potassium 3.9 mmol/L (3.5-5.1); Total Bilirubin 0.6 mg/dL (0.2-1.3)
--- NOTE | 2019-09-01 09:47 | XR ---
EXAMINATION TYPE: XR chest 2V DATE OF EXAM: 09/01/2019 COMPARISON: 03/29/2018 HISTORY: 58-year-old female with chest pain and shortness of breath TECHNIQUE: PA and lateral views FINDINGS: Heart normal size. Aorta and pelvic vasculature within normal limits. Mild interstitial prominence is unchanged. No consolidation or pleural effusion. IMPRESSION: Chronic changes without acute cardiopulmonary process.
[2019-09-01 10:53] VITALS: BP 99/63; RESP 20
== END 2019-09-01 11:00 | disposition home or self-care (01) ==
LOC: EC 08:08
DX: R06.02 Shortness of breath (principal); R07.9 Chest pain, unspecified; I10 Essential (primary) hypertension; E78.5 Hyperlipidemia, unspecified; E07.9 Disorder of thyroid, unspecified; F32.9 Major depressive disorder, single episode, unspecified; Z88.5 Allergy status to narcotic agent; Z79.3 Long term (current) use of hormonal contraceptives; Z79.899 Other long term (current) drug therapy; Z90.89 Acquired absence of other organs
CPT/HCPCS: 36415; 71046; 80053; 83690; 83735; 84484; 85025; 85379; 85610; 85730; 93005; 99285

== ENCOUNTER → 2019-09-11 | Outpatient (CLI) | payer BC ==
[2019-09-11 13:24] LABS: Appearance,Urine Clear (Clear); Basophils # (A) 0.1 k/uL (0-0.2); Basophils % (A) 1 %; Bilirubin,Urine Negative (Negative); Blood,Urine Negative (Negative); Color,Urine Light Yellow; Eosinophils # (A) 0.2 k/uL (0-0.7); Eosinophils % (A) 2 %; Glucose,Urine (UA) Negative (Negative); HCT 41.6 % (34.0-46.0); HGB 14.1 gm/dL (11.4-16.0); Ketones,Urine Negative (Negative); Leukocyte Esterase,Urine Negative (Negative); Lymphocytes # (A) 3.6 k/uL (1.0-4.8); Lymphocytes % (A) 40 %; MCH 30.8 pg (25.0-35.0); MCHC 33.8 g/dL (31.0-37.0); MCV 91.1 fL (80.0-100.0); Mean Platelet Volume 5.7; Monocytes # (A) 0.4 k/uL (0-1.0); Monocytes % (A) 4 %; Neutrophils # (A) 4.6 k/uL (1.3-7.7); Neutrophils % (A) 52 %; Nitrite,Urine Negative (Negative); PH, Urine 6.5 (5.0-8.0); Platelet Count 311 k/uL (150-450); Protein,Urine Negative (Negative); RBC 4.57 m/uL (3.80-5.40); Specific Gravity,Urine 1.015 (1.001-1.035); Urobilinogen,Urine <2.0 mg/dL (<2.0)
[2019-09-11 13:33] LABS: INR 0.9 (<1.2); Partial Thromboplastin Time 25.4 sec (22.0-30.0); Prothrombin Time 9.6 sec (9.0-12.0)
[2019-09-11 13:34] LABS: ALT 24 U/L (9-52); AST 19 U/L (14-36); African American GFR (CKD) >90 (>60 ml/min/1.73 sqM); Albumin 3.8 g/dL (3.5-5.0); Alkaline Phosphatase 85 U/L (38-126); Anion Gap 6 mmol/L; Blood Urea Nitrogen 21 mg/dL (7-17); Calcium 9.7 mg/dL (8.4-10.2); Carbon Dioxide 30 mmol/L (22-30); Chloride 106 mmol/L (98-107); Glucose 99 mg/dL (74-99); Sodium 142 mmol/L (137-145); Total Bilirubin 0.3 mg/dL (0.2-1.3); Total Protein 6.9 g/dL (6.3-8.2)
== END | disposition home or self-care (01) ==
LOC: LABPAT 12:09
PROVIDERS: ATTEND Orthopaedic Surgery
DX: Z01.818 Encounter for other preprocedural examination (principal); M17.11 Unilateral primary osteoarthritis, right knee; Z01.812 Encounter for preprocedural laboratory examination
CPT/HCPCS: 36415; 80053; 81003; 85025; 85610; 85730; 87070

== ENCOUNTER 2019-09-22 09:39 | Inpatient (IN) | payer BC ==
[~2019-09-22 09:39] MED LIST changes: +ACETAMINOPHEN TAB 500 MG TAB PO ONE; +DEXAMETHASONE SOD PHOSPHATE 10 MG/ML 1 ML VIAL IV ONE; +GABAPENTIN 300 MG CAP PO ONE; +MELOXICAM 7.5 MG TAB PO ONE; +MIDAZOLAM 2 MG/2 ML VIAL IV PRN; +ONDANSETRON 4 MG/2 ML VIAL IVP ONE; -REGADENOSON 0.4 MG/5 ML SYRINGE IV ONE; +ROPIVACAINE 246.25 MG, EPINEPHrine 0.5 MG, KETOROLAC 30 MG, cloNIDine HCL/PF 80 MCG, WA... MISCELLANE ONE; +SCOPOLAMINE 1.5MG/72HR PATCH TRANSDERM ONE; +TRANEXAMIC ACID 1,000 MG in SODIUM CHLORIDE 0.9% 100 ML IVPB ONE; +ceFAZolin 3 GM in SODIUM CHLORIDE 0.9% 100 ML IVPB ONE; +fentaNYL (PF) 50 MCG/ML 2 ML AMP IV PRN
[2019-09-22] MEDS: LACTATED RINGERS 1,000 ML IV SCH (10:27)
[2019-09-22] MEDS ORDERED: LIDOCAINE 1% 20 ML VIAL (10MG/ML) FOR IV START INTRADERMA ONE (10:28)
[2019-09-22] MEDS ORDERED: fentaNYL (PF) 50 MCG/ML 2 ML AMP IVP ONE (10:44)
[2019-09-22] MEDS ORDERED: MAGNESIUM HYDROXIDE 2,400 MG/10 ML CUP PO PRN (10:53)
[2019-09-22] MEDS ORDERED: BISACODYL 10 MG SUPP RECTAL PRN (10:53)
[2019-09-22] MEDS ORDERED: NALOXONE 0.4 MG/ML 1 ML VIAL IV PRN (10:53)
[2019-09-22] MEDS ORDERED: NA PHOS,M-B/NA PHOS,DI-BA 133 ML ENEMA RECTAL PRN (10:53)
[2019-09-22] MEDS ORDERED: HYDROmorphone 1 MG/ML 1 ML SYRINGE IVP PRN (10:53)
[2019-09-22] MEDS ORDERED: HYDROmorphone 0.5 MG/0.5 ML SYRINGE IVP PRN ×2 (10:53)
[2019-09-22] MEDS ORDERED: DIAZEPAM 5 MG TAB PO PRN (10:53)
[2019-09-22] MEDS ORDERED: ONDANSETRON 4 MG/2 ML VIAL IVP PRN (10:53)
[2019-09-22] MEDS ORDERED: HYDROcodone/APAP 5-325MG 1 EACH TAB PO PRN (10:53)
[2019-09-22] MEDS ORDERED: ROPIVACAINE 0.2%-NS ON-Q PUMP 1,090 MG, EMPTY PAIN BALL 1 EACH MISCELLANE PRN (11:56)
--- NOTE | 2019-09-22 11:58 | P.ANPRN ---
Procedure Note - Anesthesia - Nerve Block Performed Right Adductor Canal Infusion Time Out Performed: Yes Date of Procedure: 09/22/19 Procedure Start Time: 10:41 Procedure Stop Time: 11:00 Location of Patient: PreOp Indication: Acute Post-Operative Pain, Requested by Surgeon Specifically requested for management of pain by : Navin Michael Sedation Type: Sedate with meaningful contact maintained Preparation: Sterile Prep Position: Supine Catheter Depth at Skin (cm): 9 Catheter: Indwelling Needle Types: Pajunk Needle Gauge: 18 Ultrasound used to visualize needle placement: Yes Ultrasound used to observe medication spread: Yes Injectate: 0.5% Ropivacaine (see comment for volume) (20 cc) Blood Aspirated: No Pain Paresthesia on Injection Noted: No Resistance on Injection: Normal Image Stored and Saved: Yes Events: Uneventful and Well Tolerated
[2019-09-22] MEDS ORDERED: TRANEXAMIC ACID 1,000 MG/10 ML VIAL ONE (12:09)
[2019-09-22] MEDS ORDERED: MIDAZOLAM 2 MG/2 ML VIAL ONE (12:09)
[2019-09-22] MEDS ORDERED: fentaNYL (PF) 50 MCG/ML 2 ML AMP ONE (12:09)
[2019-09-22] MEDS ORDERED: SODIUM CHLORIDE 0.9% 100 ML BAG ONE (12:09)
[2019-09-22] MEDS ORDERED: PROPOFOL 10 MG/ML 20 ML VIAL IV ONE (12:09)
[2019-09-22] MEDS ORDERED: ceFAZolin 3,000 MG in SODIUM CHLORIDE 0.9% IRRIGATIO 3,000 ML IRRIGATION ONE (12:13)
[2019-09-22] MEDS ORDERED: LACTATED RINGERS 1,000 ML IV ONE (13:13)
--- NOTE | 2019-09-22 14:01 | P.OP ---
Date of Procedure: 09/22/19 Preoperative Diagnosis: Severe osteoarthritis right knee Postoperative Diagnosis: Severe osteoarthritis right knee with severe flexion contracture (-10 extension , 45 flexion) Procedure(s) Performed: Right total knee arthroplasty Implants: Robin and Nephew Journey II CR Oxinium cruciate retaining femoral component size 6, right Robin [employer]hew Journey right nonporous tibial baseplate size 4 Robin [employer] Nephew Journey II, XLPE Deep Dished articular insert, size 9 mm, Size 3- 4 right Robin [employer]hew Journey BCS resurfacing oval patellar component, 32 mm All components were cemented using [place]os R bone cement.. The articulation is Oxinium on polyethylene. Anesthesia: spinal Surgeon: Navin Michael Healthcare Prof #1: Norma Magallanes Estimated Blood Loss (ml): 50 Pathology: other (Bone and cartilage) Condition: stable Disposition: PACU Indications for Procedure: After failure of conservative treatment we discussed the surgical and nonsurgical treatment options at length. Patient wishes to proceed with a total knee arthroplasty. Complications specific to this procedure were discussed at length, including but not limited to infection, bleeding, stiffness, and nerve injury. Patient is aware of all these complications and informed consent was obtained. It was also discussed with her at length that she is at risk for increased complications secondary to her obesity and significant flexion contracture of her right knee. She is also aware of this. Operative Findings: The operative findings are consistent with severe osteoarthritis of the right knee with a severe flexion contracture Description of Procedure: Patient was seen in the preoperative area consent was reviewed and operative site was marked with a skin marker. An adductor canal pain catheter was placed by anesthesia in the preoperative area. Patient was then brought to the operating room and given preoperative antibiotics intravenously. A spinal anesthetic was administered by the anesthesia department. A tourniquet was placed on the upper thigh and the lower extremity was prepped and draped in usual sterile fashion. A gram of transexamic acid was given. A universal timeout was then performed which confirmed the patient's name, surgical site, ALLERGIES, and consent. The lower extremity was then exsanguinated and tourniquet was inflated to 300 mmHg. A standard and anterior midline approach to the knee was performed. The skin and subcutaneous tissue was dissected down to the patellar tendon. A medial parapatellar arthrotomy was then performed. The knee was then extended, the patellar was everted with extreme care secondary to the significant flexion contracture, and the knee was again flexed. Anterior horns of both menisci were excised, and a release was performed to the posterior medial aspect of the knee. On gross visual inspection, there was complete loss of articular cartilage in the medial and patellofemoral joint spaces. There was also significant c artilage damage in the lateral compartment. There were multiple periarticular osteophytes which were then removed with a Ronguer. The femoral canal was then opened with the appropriate drill, and the intramedullary femoral cutting guide was then placed and set for 5 of valgus. The distal femoral cutting block was then pinned in place, and the distal femur was then cut. The cutting block was then removed and the cut was checked for flatness. Next, the sizing guide was then placed and set for 3 external rotation based off of the epicondylar axis and Whitesides line. After the femur was sized, the appropriate 4-in-1 cutting block was then pinned in place. The anterior condyles were cut without notching. The posterior and chamfer cuts were performed while protecting the collateral ligaments. The cutting block was then removed, and the femoral canal was plugged with autologous bone. Attention was then directed to the tibia. The remaining ACL was removed with a Ronguer, and the tibia was then gently subluxed forward with a large bent knee retractor. Any remaining menisci was excised. The posterior lateral corner was cauterized in order to cauterize the lateral geniculate artery. The extra medullary tibial cutting guide was then placed, set for the appropriate rotation, slope, and depth of resection. The proximal tibia cutting guide was then pinned in place. Proximal tibia was then cut and sized. Next trials were then placed with the appropriate-sized insert. The knee was able to fully extend and flex to 130 and was stable throughout all range of motion. The knee was then extended, patella everted. Patella was then measured, and then using an osteotomy guide, the patella was cut at the appropriate level. The patella was then measured and drilled and the patella trial was then placed. The knee was then taken through range of motion with the patella trial and the patella tracked normally. The knee was then extended patella trial was then removed and the patella was everted. Knee was then flexed and lug holes were drilled through the femoral trial and the femoral trial was then removed. The tibial was then exposed, and the tibial broach guide was then pinned in place after it was set for the appropriate rotation to allow for the most coverage without overhang. The tibia was then reamed and broached. The cut surfaces of bone were then irrigated with pulsatile lavage. The posterior structures were injected with the ropivacaine solution. The knee was also irrigated with Irrisept solution. The components were then opened, the cement was mixed, and the components were then cemented in place. The cement was allowed to harden with the knee in full extension. While the cement was hardening, the remaining soft tissues were then injected with a ropivacaine solution, which consisted of 246.25 mg of ropivacaine, 0.5 mg of epinephrine, 30 mg of Toradol, 80 g of clonidine, and 48.45 mL of sterile water, for a total of 100 mL of fluid injected. After the cemented hardened. The tourniquet was released, and hemostasis was obtained. A second gram of transexamic acid was given. The knee was again irrigated. The knee was again taken through range of motion and found to be stable throughout all range of motion of 0-130, and the patella tracked normally. The fascia was then closed with #2 strata fix suture. The subcutaneous tissue was closed with 3-0 Vicryl and 3-0 strata fix. Dermabond glue was used for the skin and placed with the knee in flexion. The patient was placed in a sterile silver dressing. Patient was then transferred to recovery room in stable condition. The medical assistant secretary TOD Muse was required due the complexity surgery and the need for a skilled surgical pathologist. She assisted in positioning, draping, retraction, and closure of the wound.
--- NOTE | 2019-09-22 14:49 | XR ---
EXAMINATION TYPE: XR knee limited RT DATE OF EXAM: 09/22/2019 CLINICAL HISTORY: Right knee pain and arthritis status post total knee replacement. TECHNIQUE: Portable AP and crosstable lateral views of the right knee are obtained immediately posto peratively. COMPARISON: None FINDINGS: Metallic hardware from total right knee arthroplasty is seen and appears satisfactory in a lignment and position. There is evidence of recent surgery with diffuse soft tissue swelling and sub cutaneous emphysema noted. IMPRESSION: METALLIC HARDWARE FROM TOTAL RIGHT KNEE ARTHROPLASTY IS SATISFACTORY IN ALIGNMENT.
[2019-09-22 16:00] VITALS: BMI 43.7
[2019-09-22] MEDS: SODIUM CHLORIDE 0.9% 1,000 ML IV SCH ×2 (16:05→19:33)
[2019-09-22] MEDS: ASPIRIN 325 MG TAB PO SCH (20:00)
[2019-09-22] MEDS: MAGNESIUM OXIDE 400 MG TAB PO SCH (20:00)
[2019-09-22] MEDS: ceFAZolin 3 GM in SODIUM CHLORIDE 0.9% 100 ML IVPB SCH (20:00)
[2019-09-22] MEDS: SENNOSIDES-DOCUSATE SODIUM 1 EACH TAB PO SCH (20:00)
[2019-09-22] MEDS: LATANOPROST 0.005% OPHTH DROPS 2.5 ML BTL BOTH EYES SCH (20:01)
[2019-09-22] MEDS: HYDROcodone/APAP 5-325MG 1 EACH TAB PO PRN (22:12)
[2019-09-22] MEDS: hydrOXYzine PAMOATE 25 MG CAP PO PRN (22:13)
[2019-09-23] MEDS: ceFAZolin 3 GM in SODIUM CHLORIDE 0.9% 100 ML IVPB SCH (03:24)
[2019-09-23] MEDS: LACTATED RINGERS 1,000 ML IV SCH (03:25)
[2019-09-23] MEDS: HYDROcodone/APAP 5-325MG 1 EACH TAB PO PRN ×4 (04:04→21:29)
[2019-09-23] MEDS: hydrOXYzine PAMOATE 25 MG CAP PO PRN ×4 (04:05→21:29)
[2019-09-23] MEDS: LEVOTHYROXINE 75 MCG TAB PO SCH (05:39)
[2019-09-23] MEDS: METOPROLOL SUCCINATE (ER) 25 MG TAB.ER.24H PO SCH (07:45)
[2019-09-23 08:20] LABS: Basophils % (A) 0 %; Eosinophils % (A) 0 %; HCT 36.4 % (34.0-46.0); HGB 12.1 gm/dL (11.4-16.0); Lymphocytes # (A) 2.1 k/uL (1.0-4.8); Lymphocytes % (A) 19 %; MCH 30.9 pg (25.0-35.0); MCHC 33.2 g/dL (31.0-37.0); MCV 93.2 fL (80.0-100.0); Mean Platelet Volume 5.7; Monocytes # (A) 0.6 k/uL (0-1.0); Monocytes % (A) 6 %; Neutrophils # (A) 7.9 k/uL (1.3-7.7); Neutrophils % (A) 74 %; Platelet Count 253 k/uL (150-450); RBC 3.91 m/uL (3.80-5.40); RDW 13.1 % (11.5-15.5); WBC 10.8 k/uL (3.8-10.6)
[2019-09-23] MEDS ORDERED: NON FORMULARY DRUG (Vitamin B Complex [Vitamin B Complex] 1 CAP) PO SCH (09:00)
[2019-09-23] MEDS ORDERED: buPROPion 100 MG TAB PO SCH (09:00)
[2019-09-23] MEDS ORDERED: LISINOPRIL 20 MG TAB PO SCH (09:00)
[2019-09-23] MEDS ORDERED: MELOXICAM 7.5 MG TAB PO SCH (09:00)
--- NOTE | 2019-09-23 09:09 | P.DS ---
Providers Expected date of discharge: 09/23/19 Attending physician: Navin Michael Consults: 09/22/19 10:53 Consult Physician Routine Consulting Provider: Rajan Calderón Consult Reason/Comments: medical management Do you want consulting provider notified?: Yes Primary care physician: Rajan Calderón - Discharge Diagnosis(es) (1) Osteoarthritis of right knee Current Visit: Yes Status: Acute (2) S/P total knee arthroplasty Current Visit: Yes Status: Acute Hospital Course: This is a 58-year-old female with known history of degenerative arthritis of the right knee. The patient presents for evaluation. After discussion and consideration patient elects to proceed with total knee arthroplasty. The patient is seen preoperatively by Dr. Michael and medically cleared for surgery by their primary care physician. Patient is admitted to [facility] on 09/22/2019 for total knee arthroplasty. The procedures performed without complication or sequelae. The patient is doing well postoperatively. Labs and vital signs are stable on day of discharge. On day of discharge patient's knee incision is healing well. There is minimal erythema. There is no drainage noted at this time. There is minimal soft tissue swelling to the knee. Patient has full foot and ankle motion without difficulty or pain. Calf is soft and nontender to palpation. Neurovascular status to the right lower extremity is intact. Patient is discharged home in good condition. Opioid start talking form is reviewed and signed at patient bedside. Please see med rec for accurate list of home medications. Plan - Discharge Summary Discharge Rx Participant: Yes New Discharge Prescriptions: New Aspirin 325 mg PO BID #60 tab HYDROcodone/APAP 5-325MG [[place] 5-325] 1 - 2 tab PO Q6HR PRN #56 tab PRN Reason: Pain Sennosides [Senokot] 1 tab PO BID #60 tablet hydrOXYzine PAMOATE [Vistaril] 25 mg PO Q6H PRN #30 capsule PRN Reason: Pain No Action buPROPion HCL [Bupropion HCl] 200 mg PO DAILY Progesterone, Micronized [Progesterone] 200 mg PO HS Lisinopril-Hctz 20-12.5 mg [Zestoretic 20-12.5] 1 tab PO DAILY Cholecalciferol (Vitamin D3) [Vitamin D3] 2,000 unit PO DAILY Calcium Carbonate [Calcium] 600 mg PO DAILY Zinc 50 mg PO DAILY Magnesium Oxide [Mag-Ox] 400 mg PO HS Vitamin B Complex 1 cap PO DAILY Metoprolol Succinate (ER) [Toprol Xl] 12.5 mg PO DAILY Latanoprost Ophth [Xalatan 0.005%] 1 drop BOTH EYES HS Ranitidine HCl [Zantac] 150 mg PO BID PRN PRN Reason: Heartburn Levothyroxine Sodium [Synthroid] 150 mcg PO DAILY Discharge Medication List buPROPion HCL [Bupropion HCl] 200 mg PO DAILY 11/19/16 [History] Progesterone, Micronized [Progesterone] 200 mg PO HS 03/29/18 [History] Calcium Carbonate [Calcium] 600 mg PO DAILY 09/01/19 [History] Cholecalciferol (Vitamin D3) [Vitamin D3] 2,000 unit PO DAILY 09/01/19 [History] Latanoprost Ophth [Xalatan 0.005%] 1 drop BOTH EYES HS 09/01/19 [History] Lisinopril-Hctz 20-12.5 mg [Zestoretic 20-12.5] 1 tab PO DAILY 09/01/19 [History] Magnesium Oxide [Mag-Ox] 400 mg PO HS 09/01/19 [History] Metoprolol Succinate (ER) [Toprol Xl] 12.5 mg PO DAILY 09/01/19 [History] Vitamin B Complex 1 cap PO DAILY 09/01/19 [History] Zinc 50 mg PO DAILY 09/01/19 [History] Ranitidine HCl [Zantac] 150 mg PO BID PRN 09/16/19 [History] Levothyroxine Sodium [Synthroid] 150 mcg PO DAILY 09/22/19 [History] Aspirin 325 mg PO BID #60 tab 09/23/19 [Rx] HYDROcodone/APAP 5-325MG [[place] 5-325] 1 - 2 tab PO Q6HR PRN #56 tab 09/23/19 [Rx] Sennosides [Senokot] 1 tab PO BID #60 tablet 09/23/19 [Rx] hydrOXYzine PAMOATE [Vistaril] 25 mg PO Q6H PRN #30 capsule 09/23/19 [Rx] Follow up Appointment(s)/Referral(s): Rajan Calderón MD [Primary Care Provider] - 1 Week Navin Michael DO [Doctor of Osteopathic Medicine] - 10/07/19 3:10 pm Activity/Diet/Wound Care/Special Instructions: Weightbearing as tolerated with a walker. CPM 5-6h daily. Leave dressing intact. May be removed by home care nurse or by patient in 10 days. May shower with dressing on. Recommend use of compression stockings daily for at least 2 weeks during the day to help prevent swelling and blood clots. May remove at night before sleeping. Please follow up with [facility] and call with any questions or sofía rns, . Discharge Disposition: HOME WITH HOME HEALTH SERVICES
[2019-09-23] MEDS: ZINC SULFATE 220 MG CAP PO SCH (10:24)
[2019-09-23] MEDS: CHOLECALCIFEROL 1,000 UNIT TAB PO SCH (10:27)
[2019-09-23] MEDS: CALCIUM CARBONATE 500 MG CHEWABLE PO SCH (10:28)
[2019-09-23] MEDS: ASPIRIN 325 MG TAB PO SCH ×2 (10:28→20:11)
--- NOTE | 2019-09-23 13:32 | P.PN ---
Progress Note - Text Progress Note Date: 09/23/19 58-year-old female status post right total knee arthroplasty postop day #1, adductor canal catheter day #2. Patient doing well overall. VAS ranging from 1-4 out of 10 in severity. Ambulating, tolerating diet. Plan is to continue abductor canal catheter patient is to be discharged today.
--- NOTE | 2019-09-23 15:31 | P.CONS ---
History of Present Illness - Reason for Consult Consult date: 09/23/19 Medical management - History of Present Illness This is a 58-year-old female patient of Dr. Calderón with past medical history of gastroesophageal reflux disease, hiatal hernia, hypertension, osteoarthritis, recurrent depression, hypothyroidism, hormone replacement therapy under the care of Dr. Wright started 1 year ago. The patient came in to the hospital under the care of Dr. Michael status post right knee arthroplasty. Patient has been hypotensive but denies any lightheadedness or dizziness. She states her pain is well controlled. She is planning to stay overnight and discharged home tomorrow. She denies using a walker, cane for ambulation. Discussed the hormone replacement therapy and due to increased risk of DVT, patient is willing to hold this until she is fully ambulatory. Review of Systems Constitutional: Denies chills, Denies fatigue, Denies fever, Denies lethargy, Denies malaise, Denies poor appetite Eyes: denies blurred vision, denies pain Ears, nose, mouth and throat: Denies dysphagia, Denies headache, Denies nasal congestion, Denies nasal discharge, Denies sore throat Cardiovascular: Reports claudication, Denies chest pain, Denies decreased exercise tolerance, Denies dyspnea on exertion, Denies edema, Denies leg edema, Denies lightheadedness, Denies shortness of breath, Denies syncope Respiratory: Denies cough, Denies cough with sputum, Denies dyspnea, Denies excessive sputum, Denies hemoptysis, Denies home oxygen, Denies wheezing Gastrointestinal: Denies abdominal pain, Denies diarrhea, Denies loss of appetite, Denies nausea, Denies vomiting Genitourinary: Denies dysuria, Denies hematuria, Denies urgency, Denies urinary frequency Musculoskeletal: Denies frequent falls, Denies gait dysfunction, Denies muscle weakness, Denies myalgias Integumentary: Denies pruritus, Denies rash Neurological: Denies change in mentation, Denies change in speech, Denies numbness, Denies weakness Psychiatric: Denies anxiety, Denies depression Endocrine: Denies fatigue, Denies weight change Past Medical History Past Medical History: GERD/Reflux, Hypertension, Osteoarthritis (OA), Thyroid Disorder Additional Past Medical History / Comment(s): hiatal hernia History of Any Multi-Drug Resistant Organisms: None Reported Past Surgical History: Section, Cholecystectomy Additional Past Surgical History / Comment(s): partial thyroidectomy, c-sect x 2, right knee arthroplasty Past Anesthesia/Blood Transfusion Reactions: Postoperative Nausea & Vomiting (PONV) Past Psychological History: Depression Smoking Status: Never smoker Past Alcohol Use History: None Reported Additional Past Alcohol Use History / Comment(s): Patient is a lifelong nonsmoker, no illicit drug use, no marijuana use, no alcohol use. She does not require a walker or cane. She does not have CPAP, nebulizer at home. Past Drug Use History: None Reported - Past Family History Mother Family Medical History: No Reported History Additional Family Medical History / Comment(s): Mother is alive with history of coronary artery disease and CABG 4 vessel at age 75, no DVT history. Father Family Medical History: Diabetes Mellitus Additional Family Medical History / Comment(s): Father is secondary to diabetes, occasions. Sister(s) Additional Family Medical History / Comment(s): Patient has 1 sister with no major medical problems. Patient does not have any brothers. Patient has 2 daughters with anxiety. No sons. Medications and Allergies Home Medications Medication Instructions Recorded Confirmed Type buPROPion HCL [Bupropion HCl] 200 mg PO DAILY 11/19/16 09/16/19 History Progesterone, Micronized 200 mg PO HS 03/29/18 09/22/19 History [Progesterone] Calcium Carbonate [Calcium] 600 mg PO DAILY 09/01/19 09/16/19 History Cholecalciferol (Vitamin D3) 2,000 unit PO DAILY 09/01/19 09/16/19 History [Vitamin D3] Latanoprost Ophth [Xalatan 0.005%] 1 drop BOTH EYES HS 09/01/19 09/22/19 History Lisinopril-Hctz 20-12.5 mg 1 tab PO DAILY 09/01/19 09/16/19 History [Zestoretic 20-12.5] Magnesium Oxide [Mag-Ox] 400 mg PO HS 09/01/19 09/22/19 History Metoprolol Succinate (ER) [Toprol 12.5 mg PO DAILY 09/01/19 09/16/19 History Xl] Vitamin B Complex 1 cap PO DAILY 09/01/19 09/16/19 History Zinc 50 mg PO DAILY 09/01/19 09/16/19 History Ranitidine HCl [Zantac] 150 mg PO BID PRN 09/16/19 09/22/19 History Levothyroxine Sodium [Synthroid] 150 mcg PO DAILY 09/22/19 09/22/19 History Aspirin 325 mg PO BID #60 tab 09/23/19 Rx HYDROcodone/APAP 5-325MG [[place] 1 - 2 tab PO Q6HR PRN #56 tab 09/23/19 Rx 5-325] Sennosides [Senokot] 1 tab PO BID #60 tablet 09/23/19 Rx hydrOXYzine PAMOATE [Vistaril] 25 mg PO Q6H PRN #30 capsule 09/23/19 Rx Allergies Allergy/AdvReac Type Severity Reaction Status Date / Time hydrocodone [From Lortab] AdvReac Nausea & Verified 09/16/19 15:29 Vomiting Physical Exam Vitals: Vital Signs Temp Pulse Pulse Pulse Resp BP Pulse Ox 09/23/19 09:09 17 09/23/19 08:35 97.7 F 80 100/63 97 09/23/19 04:00 99/68 09/23/19 02:24 97.6 F 74 18 96/55 96 09/22/19 22:08 73 106/67 09/22/19 20:51 80 100/58 09/22/19 20:05 80 107/71 09/22/19 19:44 73 105/66 09/22/19 19:35 97/58 09/22/19 19:29 98.0 F 67 16 93/54 95 09/22/19 17:00 86 128/82 09/22/19 16:45 71 120/53 09/22/19 16:30 71 118/62 09/22/19 16:15 80 114/45 09/22/19 16:00 77 104/65 09/22/19 15:45 80 109/72 09/22/19 15:30 71 115/74 09/22/19 15:15 98.3 F 77 16 112/72 94 L 09/22/19 15:00 69 16 115/56 97 09/22/19 14:45 72 18 112/56 98 09/22/19 14:30 67 16 117/58 97 09/22/19 14:14 97.1 F L 84 13 113/57 98 Intake and Output 09/22/19 09/23/19 09/23/19 22:59 06:59 14:59 Intake Total 380 Output Total 400 Balance 380 -400 Intake: IV 100 Intake, IV Titration 280 Amount Sodium Chloride 0.9% 1, 280 000 ml @ 70 mls/hr IV . [id number] COUNT INCLUDES THE [facility] Rx#:[id number] Output: Urine 400 Other: Voiding Method Toilet # Voids 1 1 Gen: This is a 58-year-old female. Patient is resting bed and appears to be comfortable and in no acute distress. HEENT: Head is atraumatic, normocephalic. Pupils equal, round. Sclerae is anicteric. NECK: Supple. No JVD. No lymphadenopathy. No thyromegaly. LUNGS: Clear to auscultation. No wheezes or rhonchi. No intercostal retractions. HEART: Regular rate and rhythm. No murmur. ABDOMEN: Soft. Bowel sounds are present. No masses. No tenderness. EXTREMITIES: No pedal edema. No calf tenderness. Dressing in place to the right knee. NEUROLOGICAL: Patient is awake, alert and oriented x3. Cranial nerves 2 through 12 are grossly intact. Results CBC & Chem 7: 09/23/19 06:53 Labs: Abnormal Lab Results - Last 24 Hours (Table) 09/23/19 Range/Units 06:53 WBC 10.8 H (3.8-10.6) k/uL Neutrophils # 7.9 H (1.3-7.7) k/uL Assessment and Plan Plan: 1. Osteoarthritis status post right knee arthroplasty. Continue PT OT, DVT prophylaxis, pain control per orthopedics. 2. Postop hypotension. Hold blood pressure medications. Okay to give Toprol- XL. Parameters put in place. 3. Hypertension. Patient is normally on Toprol-XL 12.5 mg daily and Zestoretic. Parameters in place. 4. Gastroesophageal reflux disease. Continue Zantac or equivalent. 5. Hypothyroidism. Continue levothyroxine 150 g daily. 6. Recurrent depression. Continue Wellbutrin 100 mg twice daily. 7. Hormone replacement therapy, hold until patient is fully ambulatory. 8. DVT prophylaxis. Aspirin 325 mg twice daily. Discharge plan: Home with [facility] Impression and plan of care have been directed as dictated by the signing physician. Avelina Worley nurse practitioner acting as scribe for signing physician.
[2019-09-23] MEDS: FAMOTIDINE 20 MG TAB PO PRN (15:46)
[2019-09-23] MEDS: SODIUM CHLORIDE 0.9% 1,000 ML IV SCH (15:49)
[2019-09-23] MEDS: LATANOPROST 0.005% OPHTH DROPS 2.5 ML BTL BOTH EYES SCH (20:10)
[2019-09-23] MEDS: SENNOSIDES-DOCUSATE SODIUM 1 EACH TAB PO SCH (20:10)
[2019-09-23] MEDS: buPROPion 100 MG TAB PO SCH (20:11)
[2019-09-23] MEDS: MAGNESIUM OXIDE 400 MG TAB PO SCH (20:11)
[2019-09-24] MEDS: SODIUM CHLORIDE 0.9% 1,000 ML IV SCH ×2 (01:57→20:58)
[2019-09-24] MEDS: LACTATED RINGERS 1,000 ML IV SCH (01:57)
[2019-09-24] MEDS: HYDROcodone/APAP 5-325MG 1 EACH TAB PO PRN ×4 (03:17→19:36)
[2019-09-24] MEDS: hydrOXYzine PAMOATE 25 MG CAP PO PRN ×4 (03:19→19:38)
[2019-09-24] MEDS: LEVOTHYROXINE 75 MCG TAB PO SCH (05:18)
[2019-09-24] MEDS ORDERED: KETOROLAC 30 MG/ML 1 ML VIAL IVP PRN (07:29)
--- NOTE | 2019-09-24 07:33 | P.PN ---
Subjective Progress Note Date: 09/24/19 This is a 58 year-old female who is status post right total knee arthroplasty. This is postoperative day #2 and patient is seen and evaluated at bedside. Patient states that she had a lot of pain in the right knee overnight. Patient states that she was up and walking yesterday. Per nursing, the patient's blood pressure is normalizing. Patient denies any fever/chills, numbness, weakness, tingling, abdominal pain, shortness of breath or chest pain. Objective - Vital Signs Vital signs: Vital Signs Temp 99.0 F 09/24/19 07:00 Pulse 80 09/24/19 07:00 Resp 18 09/24/19 07:00 BP 122/76 09/24/19 07:00 Pulse Ox 98 09/24/19 07:00 Intake & Output 09/23/19 09/24/19 09/24/19 18:59 06:59 18:59 Intake Total 20 Balance 20 Intake: Oral 20 Other: Voiding Method Toilet Toilet # Voids 2 1 - Exam Vital signs are stable. Patient is in no acute distress and is alert and oriented 3. Calf is soft and nontender to palpation. Dressing is clean, dry, and intact. Patient has full foot and ankle motion without pain or difficulty. Neurovascular status and circulatory status are intact. - Labs CBC & Chem 7: 09/23/19 06:53 Labs: Abnormal Lab Results - Last 24 Hours (Table) 09/23/19 Range/Units 06:53 WBC 10.8 H (3.8-10.6) k/uL Neutrophils # 7.9 H (1.3-7.7) k/uL Assessment and Plan (1) Osteoarthritis of right knee Current Visit: Yes Status: Acute Code(s): M17.11 - UNILATERAL PRIMARY OSTEOARTHRITIS, RIGHT KNEE SNOMED Code(s): 914003200031814 (2) S/P total knee arthroplasty Current Visit: Yes Status: Acute Code(s): Z96.659 - PRESENCE OF UNSPECIFIED ARTIFICIAL KNEE JOINT SNOMED Code(s): 2963442512169 Plan: #1 Continue with routine postoperative care and pain control, leave dressing in place for ten days. #2 Anticoagulation with aspirin. Will add Toradol for pain control. #3 Physical therapy and CPM today. #4 Appreciate input from medicine. #5 Anticipate discharge home with home care later today or tomorrow.
[2019-09-24 07:50] LABS: Basophils # (A) 0.2 k/uL (0-0.2); Basophils % (A) 2 %; Eosinophils # (A) 0.2 k/uL (0-0.7); Eosinophils % (A) 2 %; HCT 37.8 % (34.0-46.0); HGB 12.2 gm/dL (11.4-16.0); Lymphocytes # (A) 3.1 k/uL (1.0-4.8); Lymphocytes % (A) 30 %; MCH 30.1 pg (25.0-35.0); MCHC 32.2 g/dL (31.0-37.0); MCV 93.5 fL (80.0-100.0); Mean Platelet Volume 6.8; Monocytes # (A) 0.7 k/uL (0-1.0); Monocytes % (A) 7 %; Neutrophils # (A) 5.9 k/uL (1.3-7.7); Neutrophils % (A) 58 %; Platelet Count 237 k/uL (150-450); RBC 4.04 m/uL (3.80-5.40); RDW 13.4 % (11.5-15.5); WBC 10.2 k/uL (3.8-10.6)
[2019-09-24 07:52] LABS: African American GFR (CKD) >90 (>60 ml/min/1.73 sqM); Anion Gap 6 mmol/L; Blood Urea Nitrogen 17 mg/dL (7-17); Calcium 8.5 mg/dL (8.4-10.2); Carbon Dioxide 26 mmol/L (22-30); Chloride 111 mmol/L (98-107); Glucose 88 mg/dL (74-99); Non-African American GFR(CKD) 85 (>60 ml/min/1.73 sqM); Sodium 143 mmol/L (137-145)
[2019-09-24] MEDS: METOPROLOL SUCCINATE (ER) 25 MG TAB.ER.24H PO SCH (08:45)
[2019-09-24] MEDS: ASPIRIN 325 MG TAB PO SCH ×2 (08:45→19:43)
[2019-09-24] MEDS: ZINC SULFATE 220 MG CAP PO SCH (08:45)
[2019-09-24] MEDS: CALCIUM CARBONATE 500 MG CHEWABLE PO SCH (08:45)
[2019-09-24] MEDS: CHOLECALCIFEROL 1,000 UNIT TAB PO SCH (08:45)
[2019-09-24] MEDS: buPROPion 100 MG TAB PO SCH ×2 (08:46→19:39)
[2019-09-24] MEDS: LISINOPRIL 10 MG TAB PO SCH (08:46)
[2019-09-24] MEDS: FAMOTIDINE 20 MG TAB PO PRN (13:49)
--- NOTE | 2019-09-24 14:48 | P.PN ---
Subjective Progress Note Date: 09/24/19 This is a 58-year-old female patient of Dr. Calderón with past medical history of gastroesophageal reflux disease, hiatal hernia, hypertension, osteoarthritis, recurrent depression, hypothyroidism, hormone replacement therapy under the care of Dr. Wright started 1 year ago. The patient came in to the hospital under the care of Dr. Michael status post right knee arthroplasty. Patient has been hypotensive but denies any lightheadedness or dizziness. She states her pain is well controlled. She is planning to stay overnight and discharged home tomorrow. She denies using a walker, cane for ambulation. Discussed the hormone replacement therapy and due to increased risk of DVT, patient is willing to hold this until she is fully ambulatory. 09/24: Patient states she had a rough night due to pain which is much better at time of eval. Q-pump in place. She is to work with PT and started CPM today. She denies any nausea, lightheadedness or dizziness. Pulse ox is 98% on room air, blood pressure 122/76, heart rate 80, afebrile. Patient is anticipating possible discharge home today. Patient has been instructed to take one half tablet of the Restoril to control her blood pressure rises at greater than 140 and then she can resume her home dose of 1 tablet daily. Review of Systems Constitutional: Denies chills, Denies fatigue, Denies fever, Denies lethargy, Denies malaise, Denies poor appetite Ears, nose, mouth and throat: Denies dysphagia, Denies headache, Denies nasal congestion, Denies nasal discharge, Denies sore throat Cardiovascular: Reports claudication, Denies chest pain, Denies decreased exercise tolerance, Denies dyspnea on exertion, Denies edema, Denies leg edema, Denies lightheadedness, Denies shortness of breath, Denies syncope Respiratory: Denies cough, Denies cough with sputum, Denies dyspnea, Denies excessive sputum, Denies hemoptysis, Denies home oxygen, Denies wheezing Gastrointestinal: Denies abdominal pain, Denies diarrhea, Denies loss of appetite, Denies nausea, Denies vomiting Genitourinary: Denies dysuria, Denies hematuria, Denies urgency, Denies urinary frequency Musculoskeletal: Denies frequent falls, Denies gait dysfunction, Denies muscle weakness, Denies myalgias Integumentary: Denies pruritus, Denies rash Neurological: Denies change in mentation, Denies change in speech, Denies numbness, Denies weakness Psychiatric: Denies anxiety, Denies depression Endocrine: Denies fatigue, Denies weight change Objective - Vital Signs Vital signs: Vital Signs Temp 99.0 F 09/24/19 07:00 Pulse 80 09/24/19 07:00 Resp 18 09/24/19 07:00 BP 122/76 09/24/19 07:00 Pulse Ox 98 09/24/19 07:00 Intake & Output 09/23/19 09/24/19 09/24/19 18:59 06:59 18:59 Intake Total 20 Balance 20 Intake: Oral 20 Other: Voiding Method Toilet Toilet # Voids 2 1 - Exam Gen: This is a 58-year-old female. Patient is sitting up into the bed and appears to be comfortable and in no acute distress. HEENT: Head is atraumatic, normocephalic. Pupils equal, round. Sclerae is anicteric. NECK: Supple. No JVD. No lymphadenopathy. No thyromegaly. LUNGS: Clear to auscultation. No wheezes or rhonchi. No intercostal retractions. HEART: Regular rate and rhythm. No murmur. ABDOMEN: Soft. Bowel sounds are present. No masses. No tenderness. EXTREMITIES: No pedal edema. No calf tenderness. Dressing in place to the right knee. NEUROLOGICAL: Patient is awake, alert and oriented x3. Cranial nerves 2 through 12 are grossly intact. - Labs CBC & Chem 7: 09/24/19 06:41 09/24/19 06:41 Labs: Abnormal Lab Results - Last 24 Hours (Table) 09/24/19 Range/Units 06:41 Chloride 111 H (98-107) mmol/L Assessment and Plan Plan: 1. Osteoarthritis status post right knee arthroplasty. Continue PT OT, DVT prophylaxis, pain control per orthopedics. 2. Postop hypotension. Hold blood pressure medications. Okay to give Toprol- XL. Parameters put in place. 3. Hypertension. Patient is normally on Toprol-XL 12.5 mg daily and Zestoretic. Parameters in place. Patient given instructions for home. 4. Gastroesophageal reflux disease. Continue Zantac or equivalent. 5. Hypothyroidism. Continue levothyroxine 150 g daily. 6. Recurrent depression. Continue Wellbutrin 100 mg twice daily. 7. Hormone replacement therapy, hold until patient is fully ambulatory. 8. DVT prophylaxis. Aspirin 325 mg twice daily. Discharge plan: Home with [facility] Impression and plan of care have been directed as dictated by the signing physician. Avelina Worley nurse practitioner acting as scribe for signing physician.
[2019-09-24 15:03] VITALS: RESP 16
[2019-09-24] MEDS: MAGNESIUM OXIDE 400 MG TAB PO SCH (19:35)
[2019-09-24] MEDS: SENNOSIDES-DOCUSATE SODIUM 1 EACH TAB PO SCH (19:35)
[2019-09-24] MEDS: LATANOPROST 0.005% OPHTH DROPS 2.5 ML BTL BOTH EYES SCH (19:39)
[2019-09-25] MEDS: LACTATED RINGERS 1,000 ML IV SCH (00:15)
[2019-09-25] MEDS: HYDROcodone/APAP 5-325MG 1 EACH TAB PO PRN ×2 (01:55→08:17)
[2019-09-25] MEDS: hydrOXYzine PAMOATE 25 MG CAP PO PRN ×2 (01:57→08:17)
[2019-09-25] MEDS: LEVOTHYROXINE 75 MCG TAB PO SCH (05:50)
[2019-09-25 07:23] VITALS: BP 96/64; PULSE 76; TEMP 98
--- NOTE | 2019-09-25 07:49 | P.DS ---
Providers Date of admission: 09/24/19 15:02 Expected date of discharge: 09/25/19 Attending physician: Navin Michael Consults: 09/22/19 10:53 Consult Physician Routine Consulting Provider: Rajan Calderón Consult Reason/Comments: medical management Do you want consulting provider notified?: Yes Primary care physician: Rajan Calderón - Discharge Diagnosis(es) (1) Osteoarthritis of right knee Current Visit: Yes Status: Acute (2) S/P total knee arthroplasty Current Visit: Yes Status: Acute Hospital Course: This is a 58-year-old female with known history of degenerative arthritis of the right knee. The patient presents for evaluation. After discussion and consideration patient elects to proceed with total knee arthroplasty. The patient is seen preoperatively by Dr. Michael and medically cleared for surgery by their primary care physician. Patient is admitted to [facility] on 09/22/2019 for total knee arthroplasty. The procedures performed without complication or sequelae. The patient is doing well postoperatively. Labs and vital signs are stable on day of discharge. On day of discharge patient's knee incision is healing well. There is minimal erythema. There is no drainage noted at this time. There is minimal soft tissue swelling to the knee. Patient has full foot and ankle motion without difficulty or pain. Calf is soft and nontender to palpation. Neurovascular status to the right lower extremity is intact. Patient is discharged home in good condition. Opioid start talking form is reviewed and signed at patient bedside. Please see med rec for accurate list of home medications. Plan - Discharge Summary Discharge Rx Participant: Yes New Discharge Prescriptions: New Aspirin 325 mg PO BID #60 tab HYDROcodone/APAP 5-325MG [[place] 5-325] 1 - 2 tab PO Q6HR PRN #56 tab PRN Reason: Pain Sennosides [Senokot] 1 tab PO BID #60 tablet hydrOXYzine PAMOATE [Vistaril] 25 mg PO Q6H PRN #30 capsule PRN Reason: Pain Continue buPROPion HCL [Bupropion HCl] 200 mg PO DAILY Progesterone, Micronized [Progesterone] 200 mg PO HS Cholecalciferol (Vitamin D3) [Vitamin D3] 2,000 unit PO DAILY Calcium Carbonate [Calcium] 600 mg PO DAILY Zinc 50 mg PO DAILY Magnesium Oxide [Mag-Ox] 400 mg PO HS Vitamin B Complex 1 cap PO DAILY Metoprolol Succinate (ER) [Toprol XL] 12.5 mg PO DAILY Latanoprost Ophth [Xalatan 0.005%] 1 drop BOTH EYES HS Ranitidine HCl [Zantac] 150 mg PO BID PRN PRN Reason: Heartburn Levothyroxine Sodium [Synthroid] 150 mcg PO DAILY Lisinopril-Hctz 20-12.5 mg [Zestoretic 20-12.5] 1 tab PO DAILY #0 Discharge Medication List buPROPion HCL [Bupropion HCl] 200 mg PO DAILY 11/19/16 [History] Progesterone, Micronized [Progesterone] 200 mg PO HS 03/29/18 [History] Calcium Carbonate [Calcium] 600 mg PO DAILY 09/01/19 [History] Cholecalciferol (Vitamin D3) [Vitamin D3] 2,000 unit PO DAILY 09/01/19 [History] Latanoprost Ophth [Xalatan 0.005%] 1 drop BOTH EYES HS 09/01/19 [History] Magnesium Oxide [Mag-Ox] 400 mg PO HS 09/01/19 [History] Metoprolol Succinate (ER) [Toprol XL] 12.5 mg PO DAILY 09/01/19 [History] Vitamin B Complex 1 cap PO DAILY 09/01/19 [History] Zinc 50 mg PO DAILY 09/01/19 [History] Ranitidine HCl [Zantac] 150 mg PO BID PRN 09/16/19 [History] Levothyroxine Sodium [Synthroid] 150 mcg PO DAILY 09/22/19 [History] Aspirin 325 mg PO BID #60 tab 09/23/19 [Rx] HYDROcodone/APAP 5-325MG [[place] 5-325] 1 - 2 tab PO Q6HR PRN #56 tab 09/23/19 [Rx] Sennosides [Senokot] 1 tab PO BID #60 tablet 09/23/19 [Rx] hydrOXYzine PAMOATE [Vistaril] 25 mg PO Q6H PRN #30 capsule 09/23/19 [Rx] Lisinopril-Hctz 20-12.5 mg [Zestoretic 20-12.5] 1 tab PO DAILY #0 09/24/19 [Rx] Follow up Appointment(s)/Referral(s): Rajan Calderón MD [Primary Care Provider] - 1 Week (office will call with appointment time) [facility] [NON-STAFF] - As Needed (Continuous Passive Motion knee machine) [facility], [NON-STAFF] - As Needed Navin Michael DO [Doctor of Osteopathic Medicine] - 10/07/19 3:10 pm Ambulatory/Diagnostic Orders: Continuous Passive Motion (CPM) Machine [DME.AMB1] Time Frame: 3 Weeks, Location: None Selected Patient Instructions/Handouts: *Surgery [facility] - On-Q Pain Pump Discharge Instructions, Knee Replacement (DC) Activity/Diet/Wound Care/Special Instructions: Hold progesterone until patient is fully ambulatory due to increased risk for DVT. Weightbearing as tolerated with a walker. CPM 5-6h daily. Leave dressing intact. May be removed by home care nurse or by patient in 10 days. May shower with dressing on. Recommend use of compression stockings daily for at least 2 weeks during the day to help prevent swelling and blood clots. May remove at night before sleeping. Please follow up with [facility] and call with any questions or con cerns, .
[2019-09-25] MEDS: LISINOPRIL 10 MG TAB PO SCH (08:17)
[2019-09-25] MEDS: CHOLECALCIFEROL 1,000 UNIT TAB PO SCH (08:17)
[2019-09-25] MEDS: ZINC SULFATE 220 MG CAP PO SCH (08:17)
[2019-09-25] MEDS: ASPIRIN 325 MG TAB PO SCH (08:17)
[2019-09-25] MEDS: buPROPion 100 MG TAB PO SCH (08:17)
[2019-09-25] MEDS: METOPROLOL SUCCINATE (ER) 25 MG TAB.ER.24H PO SCH (08:18)
[2019-09-25] MEDS: CALCIUM CARBONATE 500 MG CHEWABLE PO SCH (08:18)
[2019-09-25 09:04] LABS: Basophils # (A) 0.1 k/uL (0-0.2); Basophils % (A) 1 %; Eosinophils # (A) 0.3 k/uL (0-0.7); Eosinophils % (A) 4 %; HCT 35.5 % (34.0-46.0); HGB 11.4 gm/dL (11.4-16.0); Lymphocytes # (A) 2.9 k/uL (1.0-4.8); Lymphocytes % (A) 35 %; MCH 30.3 pg (25.0-35.0); MCHC 32.1 g/dL (31.0-37.0); MCV 94.3 fL (80.0-100.0); Mean Platelet Volume 6.7; Monocytes # (A) 0.5 k/uL (0-1.0); Monocytes % (A) 6 %; Neutrophils # (A) 4.3 k/uL (1.3-7.7); Neutrophils % (A) 53 %; Platelet Count 246 k/uL (150-450); RBC 3.77 m/uL (3.80-5.40); RDW 13.4 % (11.5-15.5); WBC 8.1 k/uL (3.8-10.6)
== END 2019-09-25 12:30 | disposition home health service (06) | DRG 470 ==
LOC: OR 09:39 → 4SSUR 14:59 → OR 09-24 15:02 → 4SSUR 09-24 15:02
PROVIDERS: ADMIT Orthopaedic Surgery; ATTEND Orthopaedic Surgery
PROC: 0SRC069 Replacement of Right Knee Joint with Oxidized Zirconium on Polyethylene Synthetic Substitute, Cemented, Open Approach (ICD-10-PCS; principal; 2019-09-22 11:50)
DX: M17.11 Unilateral primary osteoarthritis, right knee (principal); E03.9 Hypothyroidism, unspecified; E66.9 Obesity, unspecified; I10 Essential (primary) hypertension; Z79.82 Long term (current) use of aspirin; Z79.890 Hormone replacement therapy; Z82.49 Family history of ischemic heart disease and other diseases of the circulatory system; Z83.3 Family history of diabetes mellitus; Z90.49 Acquired absence of other specified parts of digestive tract; Z81.8 Family history of other mental and behavioral disorders
CPT/HCPCS: 64448; 76942; 80048; 85025; 88300

== ENCOUNTER → 2019-12-09 | Outpatient (CLI) | payer BC ==
[2019-12-09 12:37] LABS: HCT 44.6 % (34.0-46.0); HGB 14.4 gm/dL (11.4-16.0); MCHC 32.2 g/dL (31.0-37.0); MCV 90.2 fL (80.0-100.0); Mean Platelet Volume 7.1; Platelet Count 325 k/uL (150-450); RBC 4.95 m/uL (3.80-5.40); RDW 13.6 % (11.5-15.5); WBC 8.2 k/uL (3.8-10.6)
[2019-12-09 12:40] LABS: Appearance,Urine Clear (Clear); Bilirubin,Urine Negative (Negative); Blood,Urine Negative (Negative); Color,Urine Yellow; Glucose,Urine (UA) Negative (Negative); Ketones,Urine Negative (Negative); Leukocyte Esterase,Urine Negative (Negative); Nitrite,Urine Negative (Negative); PH, Urine 5.5 (5.0-8.0); Protein,Urine Negative (Negative); Specific Gravity,Urine 1.019 (1.001-1.035); Urobilinogen,Urine <2.0 mg/dL (<2.0)
[2019-12-09 12:45] LABS: INR 0.9 (<1.2); Partial Thromboplastin Time 23.9 sec (22.0-30.0); Prothrombin Time 9.4 sec (9.0-12.0)
[2019-12-09 12:52] LABS: ALT 15 U/L (4-34); AST 20 U/L (14-36); African American GFR (CKD) >90 (>60 ml/min/1.73 sqM); Alkaline Phosphatase 113 U/L (38-126); Anion Gap 7 mmol/L; Blood Urea Nitrogen 21 mg/dL (7-17); Calcium 9.4 mg/dL (8.4-10.2); Carbon Dioxide 25 mmol/L (22-30); Chloride 109 mmol/L (98-107); Glucose 104 mg/dL (74-99); Non-African American GFR(CKD) 83 (>60 ml/min/1.73 sqM); Potassium 4.5 mmol/L (3.5-5.1); Sodium 141 mmol/L (137-145); Total Bilirubin 0.3 mg/dL (0.2-1.3); Total Protein 7.2 g/dL (6.3-8.2)
== END | disposition home or self-care (01) ==
LOC: LABPAT 11:24
PROVIDERS: ATTEND Orthopaedic Surgery
DX: Z01.818 Encounter for other preprocedural examination (principal); M17.12 Unilateral primary osteoarthritis, left knee
CPT/HCPCS: 36415; 80053; 81003; 85027; 85610; 85730; 87070

== ENCOUNTER 2020-01-05 08:56 | Day surgery (SDC) | payer BC ==
[2019-12-31 10:28] VITALS: BMI 43.0
[~2020-01-05 08:56] MED LIST changes: +HYDROmorphone 0.5 MG/0.5 ML SYRINGE IVP PRN; +LIDOCAINE 1% (10MG/ML) FOR IV START INTRADERMA PRN; -fentaNYL (PF) 50 MCG/ML 2 ML AMP IV PRN
[2020-01-05] MEDS: LACTATED RINGERS 1,000 ML IV SCH ×3 (09:54→18:29)
[2020-01-05] MEDS ORDERED: MIDAZOLAM 2 MG/2 ML VIAL IV ONE (10:09)
[2020-01-05] MEDS ORDERED: fentaNYL (PF) 50 MCG/ML 2 ML AMP IV ONE (10:10)
[2020-01-05] MEDS ORDERED: fentaNYL (PF) 50 MCG/ML 2 ML AMP ONE (11:01)
[2020-01-05] MEDS ORDERED: PROPOFOL 10 MG/ML 20 ML VIAL IV ONE (11:01)
[2020-01-05] MEDS ORDERED: TRANEXAMIC ACID 1,000 MG/10 ML VIAL ONE (11:01)
[2020-01-05] MEDS ORDERED: SODIUM CHLORIDE 0.9% 100 ML BAG ONE (11:01)
[2020-01-05] MEDS ORDERED: diphenhydrAMINE 50 MG/ML 1 ML VIAL ONE (11:01)
[2020-01-05] MEDS ORDERED: MIDAZOLAM 2 MG/2 ML VIAL ONE (11:01)
[2020-01-05] MEDS ORDERED: ROPIVACAINE 0.2%-NS ON-Q PUMP 1,090 MG, EMPTY PAIN BALL 1 EACH MISCELLANE PRN (11:03)
--- NOTE | 2020-01-05 11:03 | P.ANPRN ---
Procedure Note - Anesthesia - Nerve Block Performed Left Adductor Canal Infusion Time Out Performed: Yes (1009) Date of Procedure: 01/05/20 Procedure Start Time: 10:10 Procedure Stop Time: 10:18 Location of Patient: PreOp Indication: Acute Post-Operative Pain, Requested by Surgeon Specifically requested for management of pain by DrRoberto: Navin Michael Sedation Type: Sedate with meaningful contact maintained Preparation: Sterile Prep Position: Supine Catheter Depth at Skin (cm): 10 Catheter: Indwelling Needle Types: Pajunk Needle Gauge: 18 Ultrasound used to visualize needle placement: Yes Ultrasound used to observe medication spread: Yes Injectate: 0.5% Ropivacaine (see comment for volume) (20cc) Blood Aspirated: No Pain Paresthesia on Injection Noted: No Resistance on Injection: Normal Image Stored and Saved: Yes Events: Uneventful and Well Tolerated
[2020-01-05] MEDS ORDERED: ceFAZolin 3,000 MG in SODIUM CHLORIDE 0.9% IRRIGATIO 3,000 ML IRRIGATION ONE (12:19)
--- NOTE | 2020-01-05 12:32 | P.OP ---
Date of Procedure: 01/05/20 Preoperative Diagnosis: Severe osteoarthritis left knee Postoperative Diagnosis: Severe osteoarthritis left knee Procedure(s) Performed: Left total knee arthroplasty Implants: Robin and Nephew Journey II CR Oxinium cruciate retaining femoral component size 6, left Robin [employer] Nephew Journey left nonporous tibial baseplate size 4 Robin [employer] Nephew Journey II, XLPE Deep Dished articular insert, size 9 mm, Size 3- 4 left Robin [employer]hew Journey BCS resurfacing oval patellar component, 32 mm All components were cemented using Palacos R bone cement.. The articulation is Oxinium on polyethylene. Anesthesia: spinal Surgeon: Navin Michael Web Site Project Manager #1: Claribel Corbett Estimated Blood Loss (ml): 50 Pathology: other (Bone cartilage) Condition: stable Disposition: PACU Indications for Procedure: After failure of conservative treatment we discussed the surgical and nonsurgical treatment options at length. Patient wishes to proceed with a total knee arthroplasty. Complications specific to this procedure were discussed at length, including but not limited to infection, bleeding, stiffness, and nerve injury. Patient is aware of all these complications and informed consent was obtained Operative Findings: The operative findings are consistent with severe osteoarthritis of the left knee Description of Procedure: Patient was seen in the preoperative area consent was reviewed and operative site was marked with a skin marker. An adductor canal pain catheter was placed by anesthesia in the preoperative area. Patient was then brought to the operating room and given preoperative antibiotics intravenously. A spinal anesthetic was administered by the anesthesia department. A tourniquet was placed on the upper thigh and the lower extremity was prepped and draped in usual sterile fashion. A gram of transexamic acid was given. A universal timeout was then performed which confirmed the patient's name, surgical site, ALLERGIES, and consent. The lower extremity was then exsanguinated and tourniquet was inflated to 250 mmHg. A standard and anterior midline approach to the knee was performed. The skin and subcutaneous tissue was dissected down to the patellar tendon. A medial parapatellar arthrotomy was then performed. The knee was then extended, the patellar was everted, and the knee was again flexed. The patellar fat pad was removed in order to enhance exposure. Anterior horns of both menisci were excised, and a release was performed to the posterior medial aspect of the knee. On gross visual inspection, there was complete loss of articular cartilage in the medial and patellofemoral joint spaces. There was also significant cartilage damage in the lateral compartment. There were multiple periarticular osteophytes which were then removed with a Ronguer. The femoral canal was then opened with the 9.5 mm intramedullary drill. The 8 mm intramedullary edward was then inserted into the femoral canal. The distal femoral cutting guide was then placed and set for 5 of valgus. The distal femoral cutting block was then pinned in place. The intramedullary edward was then removed, and the distal femur was then cut. The cutting block was then removed and the cut was checked for symmetry. Next, the sizing guide was then placed and set for 3 external rotation based off of the epicondylar axis and Whitesides line. Pins were then placed and the drill holes, and the femur was sized with the sizing stylus. The pins were then removed, and the sizing guide was then removed. The spikes of the femoral block was then placed into the predrilled holes, and malleted into place. Two 45 mm pins were then placed into the fixation holes on the cutting block. An gordo wing was then used to ensure there would be no notching with the anterior cut. The anterior condyles were cut without notching. The anterior cord cut was then performed, followed by the posterior cut, posterior chamfer cut, and the anterior chamfer cut. The collateral ligaments were protected during the entire process. The cutting block was then removed, and the femoral canal was plugged with autologous bone. Attention was then directed to the tibia. The remaining ACL was removed with a Ronguer, and the tibia was then gently subluxed forward with a large bent knee retractor. Any remaining menisci was excised. The posterior lateral corner was cauterized in order to cauterize the lateral geniculate artery. The extra medullary tibial cutting guide was then placed, set for the appropriate rotation, slope, and depth of resection. The proximal tibia cutting guide was then pinned in place. Proximal tibia was then cut and sized. Next trials were then placed with the appropriate-sized insert. The knee was able to fully extend and flex to 130 and was stable throughout all range of motion. The knee was then extended, patella everted. Patella was then measured, and then using an osteotomy guide, the patella was cut at the appropriate level. The patella was then measured and drilled and the patella trial was then placed. The knee was then taken through range of motion with the patella trial and the patella tracked normally. The knee was then extended patella trial was then removed and the patella was everted. Knee was then flexed and lug holes were drilled through the femoral trial and the femoral trial was then removed. The tibial w as then exposed, and the tibial broach guide was then pinned in place after it was set for the appropriate rotation to allow for the most coverage without overhang. The tibia was then reamed and broached. The cut surfaces of bone were then irrigated with pulsatile lavage. The posterior structures were injected with the ropivacaine solution. The knee was also irrigated with Irrisept solution. The components were then opened, the cement was mixed, and the components were then cemented in place. The cement was allowed to harden with the knee in full extension. While the cement was hardening, the remaining soft tissues were then injected with a ropivacaine solution, which consisted of 246.25 mg of ropivacaine, 0.5 mg of epinephrine, 30 mg of Toradol, 80 g of clonidine, and 48.45 mL of sterile water, for a total of 100 mL of fluid injected. After the cemented hardened. The tourniquet was released, and hemostasis was obtained. A second gram of transexamic acid was given. The knee was again irrigated. The knee was again taken through range of motion and found to be stable throughout all range of motion of 0-130, and the patella tracked normally. The fascia was then closed with #2 strata fix suture. The subcutaneous tissue was closed with 3-0 Vicryl and 3-0 strata fix. Dermabond glue was used for the skin and placed with the knee in flexion. The patient was placed in a sterile silver dressing. Patient was then transferred to recovery room in stable condition. The staffing assistant Claribel Corbett NP was required due the complexity surgery and the need for a skilled certified surgical assistant. She assisted in positioning, draping, retraction, and closure of the wound.
[2020-01-05] MEDS ORDERED: LACTATED RINGERS 1,000 ML IV ONE (12:41)
[2020-01-05] MEDS ORDERED: HYDROmorphone 0.5 MG/0.5 ML SYRINGE IVP PRN (13:12)
[2020-01-05] MEDS ORDERED: HYDROmorphone 1 MG/ML 1 ML SYRINGE IVP PRN (13:12)
[2020-01-05] MEDS ORDERED: MAGNESIUM HYDROXIDE 2,400 MG/10 ML CUP PO PRN (13:12)
[2020-01-05] MEDS ORDERED: ONDANSETRON 4 MG/2 ML VIAL IVP PRN (13:12)
[2020-01-05] MEDS ORDERED: NALOXONE 0.4 MG/ML 1 ML VIAL IV PRN (13:12)
[2020-01-05] MEDS ORDERED: TEMAZEPAM 15 MG CAP PO PRN (13:12)
[2020-01-05] MEDS ORDERED: NA PHOS,M-B/NA PHOS,DI-BA 133 ML ENEMA RECTAL PRN (13:12)
[2020-01-05] MEDS ORDERED: BISACODYL 10 MG SUPP RECTAL PRN (13:12)
[2020-01-05] MEDS ORDERED: hydrOXYzine PAMOATE 25 MG CAP PO PRN (13:12)
[2020-01-05] MEDS ORDERED: HYDROcodone/APAP 7.5-325MG 1 EACH TAB PO PRN (13:15)
--- NOTE | 2020-01-05 13:39 | XR ---
EXAMINATION TYPE: XR knee limited LT DATE OF EXAM: 01/05/2020 CLINICAL HISTORY: Left knee pain and arthritis status post total knee replacement. TECHNIQUE: Portable AP and crosstable lateral views of the left knee are obtained immediately postop eratively. COMPARISON: None FINDINGS: Metallic hardware from total left knee arthroplasty is seen and appears satisfactory in al ignment and position. There is evidence of recent surgery with diffuse subcutaneous and soft tissue swelling noted. IMPRESSION: METALLIC HARDWARE FROM TOTAL LEFT KNEE ARTHROPLASTY IS SATISFACTORY IN ALIGNMENT.
[2020-01-05] MEDS: HYDROcodone/APAP 7.5-325MG 1 EACH TAB PO PRN ×2 (16:21→22:05)
[2020-01-05] MEDS ORDERED: LATANOPROST 0.005% OPHTH DROPS 2.5 ML BTL BOTH EYES SCH (21:00)
[2020-01-05] MEDS ORDERED: SENNOSIDES-DOCUSATE SODIUM 1 EACH TAB PO SCH (21:00)
[2020-01-05] MEDS: HYDROmorphone 0.5 MG/0.5 ML SYRINGE IVP PRN (22:07)
[2020-01-05] MEDS: ceFAZolin 3 GM in SODIUM CHLORIDE 0.9% 100 ML IVPB SCH (23:13)
[2020-01-05] MEDS: buPROPion 100 MG TAB PO SCH (23:13)
[2020-01-06] MEDS: ceFAZolin 3 GM in SODIUM CHLORIDE 0.9% 100 ML IVPB SCH (03:05)
[2020-01-06] MEDS: LACTATED RINGERS 1,000 ML IV SCH ×2 (03:05→09:13)
[2020-01-06] MEDS: HYDROcodone/APAP 7.5-325MG 1 EACH TAB PO PRN ×2 (04:19→11:42)
[2020-01-06] MEDS: HYDROmorphone 0.5 MG/0.5 ML SYRINGE IVP PRN (05:56)
[2020-01-06] MEDS ORDERED: LEVOTHYROXINE 75 MCG TAB PO SCH (06:30)
[2020-01-06] MEDS: buPROPion 100 MG TAB PO SCH (07:24)
[2020-01-06 07:49] VITALS: RESP 17
[2020-01-06 08:04] LABS: Basophils % (A) 0 %; Eosinophils % (A) 0 %; HCT 38.4 % (34.0-46.0); HGB 12.2 gm/dL (11.4-16.0); Lymphocytes # (A) 2.4 k/uL (1.0-4.8); Lymphocytes % (A) 21 %; MCH 28.4 pg (25.0-35.0); MCHC 31.8 g/dL (31.0-37.0); MCV 89.4 fL (80.0-100.0); Mean Platelet Volume 7.4; Monocytes # (A) 0.6 k/uL (0-1.0); Monocytes % (A) 5 %; Neutrophils # (A) 8.2 k/uL (1.3-7.7); Neutrophils % (A) 72 %; Platelet Count 241 k/uL (150-450); RDW 13.6 % (11.5-15.5); WBC 11.3 k/uL (3.8-10.6)
--- NOTE | 2020-01-06 08:09 | P.PN ---
Subjective Progress Note Date: 01/06/20 Principal diagnosis: Status post left total knee arthroplasty This is a 59 year-old female post left total knee arthroplasty. This is post-op day 1. The patient was evaluated at the bedside today. The patient denies nausea, vomiting, abdominal pain, shortness of breath, and chest pain this morning. She states her pain is moderately controlled at this time. The patient has not been up with physical therapy yet this morning. Objective - Vital Signs Vital signs: Vital Signs Temp 97.7 F 01/06/20 07:48 Pulse 68 01/06/20 07:48 Resp 17 01/06/20 07:48 BP 98/61 01/06/20 07:48 Pulse Ox 98 01/06/20 07:48 Intake & Output 01/05/20 01/06/20 01/06/20 18:59 06:59 18:59 Intake Total 1301 Output Total 50 1400 Balance 1251 -1400 Weight 125.4 kg Intake: IV 1301 Output: Urine 1400 Estimated Blood Loss 50 Other: # Voids 1 - Exam The patient does not appear in acute distress. Alert and orientated x3. Dressing is clean dry and intact. Incision appears fine with no active drainage. Calf is soft and nontender. Good foot and ankle motion without difficulty. Sensation and circulatory status is intact. - Labs CBC & Chem 7: 01/06/20 07:03 Labs: Abnormal Lab Results - Last 24 Hours (Table) 01/06/20 Range/Units 07:03 WBC 11.3 H (3.8-10.6) k/uL Neutrophils # 8.2 H (1.3-7.7) k/uL Assessment and Plan (1) Primary localized osteoarthritis of left knee Current Visit: Yes Status: Acute Code(s): M17.12 - UNILATERAL PRIMARY OSTEOARTHRITIS, LEFT KNEE SNOMED Code(s): 895832784 (2) Status post left knee replacement Current Visit: Yes Status: Acute Code(s): Z96.652 - PRESENCE OF LEFT ARTIFICIAL KNEE JOINT SNOMED Code(s): 8741214039692 Plan: 1. Continue pain control 2. Anticoagulation with Aspirin 3. Continue physical therapy and ambulation 4. Anticipate discharge home with homecare either later today or tomorrow.
[2020-01-06] MEDS ORDERED: ASPIRIN 325 MG TAB PO SCH (09:00)
[2020-01-06] MEDS ORDERED: METOPROLOL SUCCINATE (ER) 25 MG TAB.ER.24H PO SCH (09:00)
--- NOTE | 2020-01-06 10:47 | P.CONS ---
History of Present Illness - Reason for Consult Consult date: 01/06/20 Medical management - History of Present Illness This is a 59-year-old female patient of Dr. Calderón with past medical history of gastroesophageal reflux disease, hiatal hernia, hypertension, osteoarthritis, recurrent depression, hypothyroidism, hormone replacement therapy under the care of Dr. Wright. The patient came in to the hospital under the care of Dr. Michael status post left knee arthroplasty. Patient states that she is doing okay right now. She states she's had increasing pain during the night. She denies having any chest pain, shortness of breath. No cough, no lightheadedness or dizziness. Blood pressure this morning is at 98/61 and Zestoretic is on hold. Patient denies having a bowel movement. She is complaining of some left thigh pain. Review of Systems Constitutional: Denies chills, Denies fatigue, Denies fever, Denies lethargy, Denies malaise, Denies poor appetite Eyes: denies blurred vision, denies pain Ears, nose, mouth and throat: Denies dysphagia, Denies headache, Denies nasal c ongestion, Denies nasal discharge, Denies sore throat Cardiovascular: Denies claudication, Denies chest pain, Denies decreased exercise tolerance, Denies dyspnea on exertion, Denies edema, Denies leg edema, Denies lightheadedness, Denies shortness of breath, Denies syncope Respiratory: Denies cough, Denies cough with sputum, Denies dyspnea, Denies excessive sputum, Denies hemoptysis, Denies home oxygen, Denies wheezing Gastrointestinal: Denies abdominal pain, Denies diarrhea, Denies loss of appetite, Denies nausea, Denies vomiting Genitourinary: Denies dysuria, Denies hematuria, Denies urgency, Denies urinary frequency Musculoskeletal: Denies frequent falls, Denies gait dysfunction, Denies muscle weakness, Denies myalgias, reports left knee/thigh discomfort Integumentary: Denies pruritus, Denies rash Neurological: Denies change in mentation, Denies change in speech, Denies numbness, Denies weakness Psychiatric: Denies anxiety, Denies depression Endocrine: Denies fatigue, Denies weight change Past Medical History Past Medical History: Hypertension, Thyroid Disorder Additional Past Medical History / Comment(s): Hiatal hernia. History of Any Multi-Drug Resistant Organisms: None Reported Past Surgical History: Section, Cholecystectomy, Joint Replacement, Orthopedic Surgery Additional Past Surgical History / Comment(s): Partial thyroidectomy, Section X2, right knee arthroplasty, right knee replacement. K 01/2020 Past Anesthesia/Blood Transfusion Reactions: Postoperative Nausea & Vomiting (PONV) Past Psychological History: Depression Smoking Status: Never smoker Past Alcohol Use History: None Reported Additional Past Alcohol Use History / Comment(s): Patient is a lifelong nonsmoker, no illicit drug use, no marijuana use, no alcohol use. She does not require a walker or cane. She does not have CPAP, nebulizer at home. Past Drug Use History: None Reported - Past Family History Mother Family Medical History: No Reported History Additional Family Medical History / Comment(s): Mother is alive with history of coronary artery disease and CABG 4 vessel at age 75. Father Family Medical History: Diabetes Mellitus Additional Family Medical History / Comment(s): Father is secondary to diabetes. Sister(s) Additional Family Medical History / Comment(s): Patient has 1 sister with no major medical problems. Patient does not have any brothers. Patient has 2 daughters with anxiety. No sons. Medications and Allergies Home Medications Medication Instructions Recorded Confirmed Type buPROPion HCL [Bupropion HCl] 100 mg PO BID 11/19/16 12/31/19 History Progesterone, Micronized 200 mg PO HS 03/29/18 12/31/19 History [Progesterone] Latanoprost Ophth [Xalatan 0.005%] 1 drop BOTH EYES HS 09/01/19 12/31/19 History Metoprolol Succinate (ER) [Toprol 12.5 mg PO QAM 09/01/19 12/31/19 History XL] Levothyroxine Sodium [Synthroid] 150 mcg PO QAM 09/22/19 12/31/19 History Ascorbic Acid [Vitamin C] 500 mg PO DAILY 12/31/19 12/31/19 History Lisinopril-Hctz 20-12.5 mg 1 tab PO QAM 12/31/19 12/31/19 History [Zestoretic 20-12.5] Aspirin 325 mg PO BID #60 tab 01/06/20 Rx HYDROcodone/APAP 7.5-325MG [[place] 1 tab PO Q4-6H PRN #42 tab 01/06/20 Rx 7.5-325] Sennosides-Docusate Sodium 2 tab PO DAILY #30 tablet 01/06/20 Rx [Senokot-S] Allergies Allergy/AdvReac Type Severity Reaction Status Date / Time hydrocodone [From Lortab] AdvReac Nausea & Verified 01/05/20 09:51 Vomiting Physical Exam Vitals: Vital Signs Temp Pulse Pulse Pulse Resp BP BP 01/06/20 07:48 97.7 F 68 17 98/61 01/06/20 01:15 98.0 F 82 16 99/65 01/06/20 00:00 16 01/05/20 15:35 75 123/75 01/05/20 15:20 74 118/70 01/05/20 15:05 75 122/77 01/05/20 14:50 73 102/67 01/05/20 14:35 75 109/72 01/05/20 14:24 97.5 F L 76 16 115/71 01/05/20 14:20 97.5 F L 73 16 115/71 01/05/20 13:43 75 16 113/56 01/05/20 13:26 81 16 107/56 01/05/20 13:11 97 F L 79 16 111/55 01/05/20 10:25 73 16 115/59 01/05/20 09:50 97.8 F 77 16 122/55 Pulse Ox 01/06/20 07:48 98 01/06/20 01:15 95 01/06/20 00:00 01/05/20 15:35 01/05/20 15:20 01/05/20 15:05 01/05/20 14:50 01/05/20 14:35 01/05/20 14:24 92 L 01/05/20 14:20 90 L 01/05/20 13:43 97 01/05/20 13:26 99 01/05/20 13:11 98 01/05/20 10:25 97 01/05/20 09:50 97 Intake and Output 01/05/20 01/06/20 01/06/20 22:59 06:59 14:59 Output Total 700 700 Balance -700 -700 Output: Urine 700 700 Other: # Voids 1 1 Gen: This is a 59-year-old female. Patient is resting bed and appears to be comfortable and in no acute distress. HEENT: Head is atraumatic, normocephalic. Pupils equal, round. Sclerae is anicteric. NECK: Supple. No JVD. No lymphadenopathy. No thyromegaly. LUNGS: Clear to auscultation. No wheezes or rhonchi. No intercostal retractions. HEART: Regular rate and rhythm. No murmur. ABDOMEN: Soft. Bowel sounds are present. No masses. No tenderness. EXTREMITIES: No pedal edema. No calf tenderness. Dressing in place to the left knee. NEUROLOGICAL: Patient is awake, alert and oriented x3. Cranial nerves 2 through 12 are grossly intact. Results CBC & Chem 7: 01/06/20 07:03 Labs: Abnormal Lab Results - Last 24 Hours (Table) 01/06/20 Range/Units 07:03 WBC 11.3 H (3.8-10.6) k/uL Neutrophils # 8.2 H (1.3-7.7) k/uL Assessment and Plan Plan: 1. Osteoarthritis status post left knee arthroplasty, postop day #1. Continue PT OT, DVT prophylaxis, pain control per orthopedics. 2. Mild postoperative hypotension, expected following surgery. Zestoretic on hold. May continue Toprol-XL. 3. Hypertension. Continue Toprol-XL 12.5 mg daily and hold Zestoretic. Para meters in place. 4. Gastroesophageal reflux disease. Pepcid. 5. Hypothyroidism. Continue levothyroxine 150 g daily. 6. Recurrent depression. Continue Wellbutrin 100 mg twice daily. 7. Hormone replacement therapy, hold until patient is fully ambulatory. 8. DVT prophylaxis. Aspirin 325 mg twice daily. Discharge plan: Home with [facility] Impression and plan of care have been directed as dictated by the signing physician. Avelina Worley nurse practitioner acting as scribe for signing physician.
[2020-01-06 14:57] VITALS: BP 111/69; PULSE 65; TEMP 98.1
--- NOTE | 2020-01-07 08:31 | P.DS ---
Providers Expected date of discharge: 01/06/20 Attending physician: Navin Michael Consults: 01/05/20 13:12 Consult Physician Routine Consulting Provider: Rajan Calderón Consult Reason/Comments: medical management Do you want consulting provider notified?: Yes Primary care physician: Rajan Calderón - Discharge Diagnosis(es) (1) Primary localized osteoarthritis of left knee Status: Acute (2) Status post left knee replacement Status: Acute (3) Hypertension Status: Acute (4) Hypothyroid Status: Acute Hospital Course: This is a 59-year-old female last seen in our office with complaints of left knee pain. Patient has known history of degenerative arthritis of the left knee and presented to discuss options. After discussion and consideration, the patient elected to proceed with a left total knee arthroplasty. Patient was seen preoperatively, and medically cleared for surgery by her primary care physician. Patient was admitted to [facility] underwent left total knee arthroplasty on 01/05/[address] Navin Michael. The procedure was performed without complications or sequelae. The patient is seen and evaluated at bedside today. Pain is well-controlled. Patient has no new complaints today and denies any fevers, chills, nausea, vomiting, or shortness of breath. Vital signs are stable. Dressing is clean dry and intact. Incision looks fine with no erythema or active drainage. Calf is soft and nontender. Patient has full foot and ankle motion without difficulty. Patient's left lower extremity is neurovascularly intact. The patient is orthopedically stable for discharge home with homecare. Pertinent Studies: Laboratory Tests 01/06/20 07:03 WBC 11.3 H RBC 4.30 Hgb 12.2 Hct 38.4 Neutrophils # 8.2 H Patient Condition at Discharge: Stable Plan - Discharge Summary Discharge Rx Participant: Yes New Discharge Prescriptions: New Aspirin 325 mg PO BID #60 tab HYDROcodone/APAP 7.5-325MG [[place] 7.5-325] 1 tab PO Q4-6H PRN #42 tab PRN Reason: Pain Sennosides-Docusate Sodium [Senokot-S] 2 tab PO DAILY #30 tablet No Action buPROPion HCL [Bupropion HCl] 100 mg PO BID Progesterone, Micronized [Progesterone] 200 mg PO HS Metoprolol Succinate (ER) [Toprol XL] 12.5 mg PO QAM Latanoprost Ophth [Xalatan 0.005%] 1 drop BOTH EYES HS Levothyroxine Sodium [Synthroid] 150 mcg PO QAM Lisinopril-Hctz 20-12.5 mg [Zestoretic 20-12.5] 1 tab PO QAM Ascorbic Acid [Vitamin C] 500 mg PO DAILY Discharge Medication List buPROPion HCL [Bupropion HCl] 100 mg PO BID 11/19/16 [History] Progesterone, Micronized [Progesterone] 200 mg PO HS 03/29/18 [History] Latanoprost Ophth [Xalatan 0.005%] 1 drop BOTH EYES HS 09/01/19 [History] Metoprolol Succinate (ER) [Toprol XL] 12.5 mg PO QAM 09/01/19 [History] Levothyroxine Sodium [Synthroid] 150 mcg PO QAM 09/22/19 [History] Ascorbic Acid [Vitamin C] 500 mg PO DAILY 12/31/19 [History] Lisinopril-Hctz 20-12.5 mg [Zestoretic 20-12.5] 1 tab PO QAM 12/31/19 [History] Aspirin 325 mg PO BID #60 tab 01/06/20 [Rx] HYDROcodone/APAP 7.5-325MG [[place] 7.5-325] 1 tab PO Q4-6H PRN #42 tab 01/06/20 [Rx] Sennosides-Docusate Sodium [Senokot-S] 2 tab PO DAILY #30 tablet 01/06/20 [Rx] Follow up Appointment(s)/Referral(s): Rajan Calderón MD [Primary Care Provider] - 1 Week (office not answering. Please call to make appointment) [facility] [NON-STAFF] - As Needed (Continuous Passive Motion knee machine) [facility], [NON-STAFF] - As Needed Navin Michael DO [Doctor of Osteopathic Medicine] - 01/20/20 3:30 pm Ambulatory/Diagnostic Orders: Continuous Passive Motion (CPM) Machine [DME.AMB1] Time Frame: 3 Weeks, Location: None Selected Patient Instructions/Handouts: *Surgery [facility] - On-Q Pain Pump Discharge Instructions, Knee Replacement (DC) Activity/Diet/Wound Care/Special Instructions: Weightbearing as tolerated with walker Keep dressing in place for 10 days unless saturated Aspirin 325 mg twice a day May shower over dressing CPM at home Follow up with Dr. Navin Michael in 2 weeks. Call [facility] with questions or concerns, Discharge Disposition: HOME WITH HOME HEALTH SERVICES
== END 2020-01-06 15:28 | disposition home health service (06) ==
LOC: OR 08:56 → 4SSUR 13:06 → OR 01-06 15:28
PROVIDERS: ATTEND Orthopaedic Surgery
DX: M17.12 Unilateral primary osteoarthritis, left knee (principal); I10 Essential (primary) hypertension; K21.9 Gastro-esophageal reflux disease without esophagitis; K44.9 Diaphragmatic hernia without obstruction or gangrene; F32.9 Major depressive disorder, single episode, unspecified; E89.0 Postprocedural hypothyroidism; R45.0 Nervousness; L98.9 Disorder of the skin and subcutaneous tissue, unspecified; Z96.651 Presence of right artificial knee joint; Z79.899 Other long term (current) drug therapy; Z79.890 Hormone replacement therapy; Z79.82 Long term (current) use of aspirin; Z88.5 Allergy status to narcotic agent; Z97.3 Presence of spectacles and contact lenses; Z98.890 Other specified postprocedural states; Z83.3 Family history of diabetes mellitus; Z90.49 Acquired absence of other specified parts of digestive tract; Z82.49 Family history of ischemic heart disease and other diseases of the circulatory system; Z81.8 Family history of other mental and behavioral disorders
CPT/HCPCS: 97116; 97161; 64448; 76942; 85025; 88300; 73560; 27447; C1713; C1776; J2250; J0171; J1200; J1100; J0690 ×3; J2405; J3010; J1885; J2795 ×2; J2704; J0735; J1170 ×2

== ENCOUNTER → 2020-07-20 | Outpatient (CLI) | payer BC ==
--- NOTE | 2020-07-22 09:56 | MM ---
Reason for exam: screening (asymptomatic). Last mammogram was performed 1 year and 2 months ago. History: Patient is postmenopausal and had first child at age 36. Family history of breast cancer in maternal aunt at age 55. 2 benign excisional biopsies of the left breast, 1995. Took hormonal contraceptives for 7 years beginning at age 28. Taking progesterone for 8 years. Physical Findings: A clinical breast exam by your physician is recommended on an annual basis and results should be correlated with mammographic findings. MG Screening Mammo w CAD Bilateral CC and MLO view(s) were taken. Prior study comparison: May 04, 2019, bilateral MG screening mammo w CAD. April 30, 2018, bilateral MG screening mammo w CAD. The breast tissue is almost entirely fat. No significant changes when compared with prior studies. ASSESSMENT: Benign, BI-RAD 2 RECOMMENDATION: Routine screening mammogram of both breasts in 1 year.
== END | disposition home or self-care (01) ==
LOC: RADMAMWWP 11:04
PROVIDERS: ATTEND Internal Medicine
DX: Z12.31 Encounter for screening mammogram for malignant neoplasm of breast (principal)
CPT/HCPCS: 77067

== ENCOUNTER 2020-08-27 13:48 | Inpatient (IN) | payer BC ==
[2020-08-27] MEDS ORDERED: SODIUM CHLORIDE 0.9% 1,000 ML IV STA (14:05)
[2020-08-27] MEDS ORDERED: IBUPROFEN 600 MG TAB PO STA (14:05)
--- NOTE | 2020-08-27 14:18 | ED ---
Fever HPI - General Chief Complaint: Fever Stated Complaint: fever/shortness of breath Time Seen by Provider: 08/27/20 13:55 Source: patient, RN notes reviewed Mode of arrival: wheelchair Limitations: no limitations - History of Present Illness Initial Comments: This is a 59-year-old female presents emergency Department with chief complaint of fever. Patient states she's had a fever approximate 4 days. Patient states she is a dry cough from postnasal drainage. States she's had fevers chills achiness. She states that her kids were sick a week or so ago. Patient states that she's had no other known sick contacts. Denies any abdominal pain, nausea and diarrhea constipation no dysuria or hematuria. Patient states she feels short of breath. Patient is she short of breath with talking and at rest. Denies chest pain - Related Data Home Medications Medication Instructions Recorded Confirmed buPROPion HCL [Bupropion HCl] 100 mg PO BID 11/19/16 12/31/19 Progesterone, Micronized 200 mg PO HS 03/29/18 12/31/19 [Progesterone] Latanoprost Ophth [Xalatan 0.005%] 1 drop BOTH EYES HS 09/01/19 12/31/19 Metoprolol Succinate (ER) [Toprol 12.5 mg PO QAM 09/01/19 12/31/19 XL] Levothyroxine Sodium [Synthroid] 150 mcg PO QAM 09/22/19 12/31/19 Ascorbic Acid [Vitamin C] 500 mg PO DAILY 12/31/19 12/31/19 Lisinopril-Hctz 20-12.5 mg 1 tab PO QAM 12/31/19 12/31/19 [Zestoretic 20-12.5] Previous Rx's Medication Instructions Recorded Aspirin 325 mg PO BID #60 tab 01/06/20 HYDROcodone/APAP 7.5-325MG [[place] 1 tab PO Q4-6H PRN #42 tab 01/06/20 7.5-325] Sennosides-Docusate Sodium 2 tab PO DAILY #30 tablet 01/06/20 [Senokot-S] Allergies Allergy/AdvReac Type Severity Reaction Status Date / Time hydrocodone [From Lortab] AdvReac Nausea & Verified 08/27/20 13:53 Vomiting Review of Systems ROS Statement: Those systems with pertinent positive or pertinent negative responses have been documented in the HPI. ROS Other: All systems not noted in ROS Statement are negative. Past Medical History Past Medical History: Thyroid Disorder Additional Past Medical History / Comment(s): hiatal hernia, thyroid goiter History of Any Multi-Drug Resistant Organisms: None Reported Past Surgical History: Section, Cholecystectomy, Joint Replacement Additional Past Surgical History / Comment(s): thyroidectomy, jaison knee Past Anesthesia/Blood Transfusion Reactions: Postoperative Nausea & Vomiting (PONV) Past Psychological History: No Psychological Hx Reported, Depression Smoking Status: Never smoker Past Alcohol Use History: None Reported Past Drug Use History: None Reported - Past Family History Mother Family Medical History: No Reported History Additional Family Medical History / Comment(s): Mother is alive with history of coronary artery disease and CABG 4 vessel at age 75. Father Family Medical History: Diabetes Mellitus Additional Family Medical History / Comment(s): Father is secondary to diabetes. Sister(s) Additional Family Medical History / Comment(s): Patient has 1 sister with no major medical problems. Patient does not have any brothers. Patient has 2 daughters with anxiety. No sons. General Exam Limitations: no limitations General appearance: alert, in no apparent distress Head exam: Present: atraumatic, normocephalic, normal inspection Eye exam: Present: normal appearance, PERRL, EOMI. Absent: scleral icterus, conjunctival injection, periorbital swelling ENT exam: Present: normal exam, normal oropharynx, mucous membranes moist Neck exam: Present: normal inspection. Absent: tenderness, meningismus, lymphadenopathy Respiratory exam: Present: normal lung sounds bilaterally. Absent: respiratory distress, wheezes, rales, rhonchi, stridor Cardiovascular Exam: Present: regular rate, normal rhythm, normal heart sounds. Absent: systolic murmur, diastolic murmur, rubs, gallop, clicks GI/Abdominal exam: Present: soft, normal bowel sounds. Absent: distended, tenderness, guarding, rebound, rigid Neurological exam: Present: alert, oriented X3, CN II-XII intact Skin exam: Present: warm, dry, intact, normal color. Absent: rash Course Vital Signs 08/27/20 08/27/20 13:49 14:33 Temperature 103.2 F H Pulse Rate 96 Respiratory 22 18 Rate Blood Pressure 138/84 O2 Sat by Pulse 94 L Oximetry Medical Decision Making - Medical Decision Making 59-year-old female presented for fever. X-ray shows evidence of left lower pneumonia. Patient has leukopenia, mildly elevated CRP possible coronavirus patient will be admitted and treated for bacterial pneumonia pending coronavirus. Case discussed with Dr. Calderón - Lab Data Result diagrams: 08/27/20 14:20 08/27/20 14:20 Lab Results 08/27/20 08/27/20 08/27/20 Range/Units 14:20 14:20 14:20 WBC 3.7 L (3.8-10.6) k/uL RBC 4.65 (3.80-5.40) m/uL Hgb 13.8 (11.4-16.0) gm/dL Hct 41.9 (34.0-46.0) % MCV 90.2 (80.0-100.0) fL MCH 29.8 (25.0-35.0) pg MCHC 33.0 (31.0-37.0) g/dL RDW 13.3 (11.5-15.5) % Plt Count 166 (150-450) k/uL Neutrophils % 77 % Lymphocytes % 18 % Monocytes % 3 % Eosinophils % 0 % Basophils % 0 % Neutrophils # 2.9 (1.3-7.7) k/uL Lymphocytes # 0.7 L (1.0-4.8) k/uL Monocytes # 0.1 (0-1.0) k/uL Eosinophils # 0.0 (0-0.7) k/uL Basophils # 0.0 (0-0.2) k/uL Sodium 136 L (137-145) mmol/L Potassium 4.2 (3.5-5.1) mmol/L Chloride 106 (98-107) mmol/L Carbon Dioxide 23 (22-30) mmol/L Anion Gap 7 mmol/L BUN 11 (7-17) mg/dL Creatinine 0.74 (0.52-1.04) mg/dL Est GFR (CKD-EPI)AfAm >90 (>60 ml/min/1.73 sqM) Est GFR (CKD-EPI)NonAf 90 (>60 ml/min/1.73 sqM) Glucose 128 H (74-99) mg/dL Plasma Lactic Acid Meet 1.3 (0.7-2.0) mmol/L Calcium 8.2 L (8.4-10.2) mg/dL Magnesium 1.8 (1.6-2.3) mg/dL Total Bilirubin 0.6 (0.2-1.3) mg/dL AST 49 H (14-36) U/L ALT 31 (4-34) U/L Alkaline Phosphatase 68 (38-126) U/L C-Reactive Protein 34.8 H (<10.0) mg/L Total Protein 6.8 (6.3-8.2) g/dL Albumin 3.5 (3.5-5.0) g/dL Urine Color Urine Appearance (Clear) Urine pH (5.0-8.0) Ur Specific [place] (1.001-1.035) Urine Protein (Negative) Urine Glucose (UA) (Negative) Urine Ketones (Negative) Urine Blood (Negative) Urine Nitrite (Negative) Urine Bilirubin (Negative) Urine Urobilinogen (<2.0) mg/dL Ur Leukocyte Esterase (Negative) Urine RBC (0-5) /hpf Urine WBC (0-5) /hpf Ur Squamous Epith Cells (0-4) /hpf Urine Bacteria (None) /hpf Urine Mucus (None) /hpf Influenza Type A RNA (Not Detectd) Influenza Type B (PCR) (Not Detectd) 08/27/20 08/27/20 Range/Units 14:20 14:25 WBC (3.8-10.6) k/uL RBC (3.80-5.40) m/uL Hgb (11.4-16.0) gm/dL Hct (34.0-46.0) % MCV (80.0-100.0) fL MCH (25.0-35.0) pg MCHC (31.0-37.0) g/dL RDW (11.5-15.5) % Plt Count (150-450) k/uL Neutrophils % % Lymphocytes % % Monocytes % % Eosinophils % % Basophils % % Neutrophils # (1.3-7.7) k/uL Lymphocytes # (1.0-4.8) k/uL Monocytes # (0-1.0) k/uL Eosinophils # (0-0.7) k/uL Basophils # (0-0.2) k/uL Sodium (137-145) mmol/L Potassium (3.5-5.1) mmol/L Chloride (98-107) mmol/L Carbon Dioxide (22-30) mmol/L Anion Gap mmol/L BUN (7-17) mg/dL Creatinine (0.52-1.04) mg/dL Est GFR (CKD-EPI)AfAm (>60 ml/min/1.73 sqM) Est GFR (CKD-EPI)NonAf (>60 ml/min/1.73 sqM) Glucose (74-99) mg/dL Plasma Lactic Acid Meet (0.7-2.0) mmol/L Calcium (8.4-10.2) mg/dL Magnesium (1.6-2.3) mg/dL Total Bilirubin (0.2-1.3) mg/dL AST (14-36) U/L ALT (4-34) U/L Alkaline Phosphatase (38-126) U/L C-Reactive Protein (<10.0) mg/L Total Protein (6.3-8.2) g/dL Albumin (3.5-5.0) g/dL Urine Color Yellow Urine Appearance Cloudy H (Clear) Urine pH 6.5 (5.0-8.0) Ur Specific [place] 1.017 (1.001-1.035) Urine Protein Trace H (Negative) Urine Glucose (UA) Negative (Negative) Urine Ketones Negative (Negative) Urine Blood Negative (Negative) Urine Nitrite Negative (Negative) Urine Bilirubin Negative (Negative) Urine Urobilinogen <2.0 (<2.0) mg/dL Ur Leukocyte Esterase Negative (Negative) Urine RBC 1 (0-5) /hpf Urine WBC 4 (0-5) /hpf Ur Squamous Epith Cells 4 (0-4) /hpf Urine Bacteria Rare H (None) /hpf Urine Mucus Rare H (None) /hpf Influenza Type A RNA Not Detected (Not Detectd) Influenza Type B (PCR) Not Detected (Not Detectd) Disposition Clinical Impression: Pneumonia, Fever, Dyspnea Disposition: ADMITTED IP TO THIS HOSP Condition: Fair Referrals: Rajan Calderón MD [Primary Care Provider] - 1-2 days
[2020-08-27 14:42] LABS: Basophils % (A) 0 %; Eosinophils % (A) 0 %; HCT 41.9 % (34.0-46.0); HGB 13.8 gm/dL (11.4-16.0); Lymphocytes # (A) 0.7 k/uL (1.0-4.8); Lymphocytes % (A) 18 %; MCH 29.8 pg (25.0-35.0); MCV 90.2 fL (80.0-100.0); Mean Platelet Volume 6.8; Monocytes # (A) 0.1 k/uL (0-1.0); Monocytes % (A) 3 %; Neutrophils # (A) 2.9 k/uL (1.3-7.7); Neutrophils % (A) 77 %; Platelet Count 166 k/uL (150-450); RBC 4.65 m/uL (3.80-5.40); RDW 13.3 % (11.5-15.5); WBC 3.7 k/uL (3.8-10.6)
[2020-08-27 14:55] LABS: ALT 31 U/L (4-34); AST 49 U/L (14-36); African American GFR (CKD) >90 (>60 ml/min/1.73 sqM); Albumin 3.5 g/dL (3.5-5.0); Alkaline Phosphatase 68 U/L (38-126); Anion Gap 7 mmol/L; Blood Urea Nitrogen 11 mg/dL (7-17); C Reactive Protein 34.8 mg/L (<10.0); Calcium 8.2 mg/dL (8.4-10.2); Carbon Dioxide 23 mmol/L (22-30); Chloride 106 mmol/L (98-107); Glucose 128 mg/dL (74-99); Magnesium 1.8 mg/dL (1.6-2.3); Non-African American GFR(CKD) 90 (>60 ml/min/1.73 sqM); Potassium 4.2 mmol/L (3.5-5.1); Sodium 136 mmol/L (137-145); Total Bilirubin 0.6 mg/dL (0.2-1.3); Total Protein 6.8 g/dL (6.3-8.2)
[2020-08-27 15:03] LABS: Appearance,Urine Cloudy (Clear); Bacteria,Urine Rare /hpf; Bilirubin,Urine Negative (Negative); Blood,Urine Negative (Negative); Color,Urine Yellow; Glucose,Urine (UA) Negative (Negative); Ketones,Urine Negative (Negative); Leukocyte Esterase,Urine Negative (Negative); Mucus,Urine Rare /hpf; Nitrite,Urine Negative (Negative); PH, Urine 6.5 (5.0-8.0); Protein,Urine Trace (Negative); RBC,Urine 1 /hpf (0-5); Specific Gravity,Urine 1.017 (1.001-1.035); Squamous Epithelial Cell,Urine 4 /hpf (0-4); Urobilinogen,Urine <2.0 mg/dL (<2.0); WBC,Urine 4 /hpf (0-5)
--- NOTE | 2020-08-27 15:19 | XR ---
EXAMINATION TYPE: XR chest 2V DATE OF EXAM: 08/27/2020 COMPARISON: 09/01/2019 HISTORY: Fever TECHNIQUE: FINDINGS: Heart and mediastinum are normal. There is some coarse interstitial density left midlung fi eld. There is no pulmonary consolidation. Bony thorax is intact. IMPRESSION: There is evidence for some acute mild pneumonia in the left lung compared to old exam.
[2020-08-27] MEDS ORDERED: cefTRIAXone IN SWFI 1,000 MG/10 ML SYRINGE IVP STA (15:24)
[2020-08-27] MEDS ORDERED: AZITHROMYCIN 500 MG in SODIUM CHLORIDE 0.9% 250 ML IVPB STA (15:25)
[2020-08-27] MEDS ORDERED: IPRATROPIUM-ALBUTEROL 3 ML NEB INHALATION PRN (15:30)
[2020-08-27] MEDS ORDERED: PNEUMONIA PROTOCOL UTILIZED 1 EACH MISC PO PRN (15:30)
[2020-08-27] MEDS: buPROPion 100 MG TAB PO SCH (22:51)
[2020-08-27] MEDS: PANTOPRAZOLE 40 MG TABLET PO SCH (22:51)
[2020-08-27] MEDS: HEPARIN SODIUM,PORCINE 5,000 UNIT/ML 1 ML VIAL SQ SCH (22:52)
[2020-08-28] MEDS: IBUPROFEN 800 MG TAB PO PRN ×2 (03:43→17:11)
[2020-08-28] MEDS: LEVOTHYROXINE 50 MCG TAB PO SCH ×2 (05:52→08:37)
--- NOTE | 2020-08-28 07:36 | XR ---
EXAMINATION TYPE: XR chest 1V DATE OF EXAM: 08/28/2020 CLINICAL HISTORY: Difficulty breathing and pneumonia progress study. TECHNIQUE: Single AP portable upright view of the chest is obtained. COMPARISON: Chest x-ray from one day earlier and September 01, 2019 FINDINGS: Persistent increased opacity left lower lung. Some improved aeration left midlung. Patchy new increased opacity right lower lung. No pleural effusion or pneumothorax bilaterally. Cardiac silh ouette size stable and within normal limits. Osseous structures intact. IMPRESSION: Bilateral multifocal acute infiltrates and/or edema. Some improvement in left mid lung. S ome worsening right lower lung. Correlate clinically to exclude Covid-19 infection.
[2020-08-28] MEDS: PANTOPRAZOLE 40 MG TABLET PO SCH ×2 (08:32→17:11)
[2020-08-28] MEDS: buPROPion 100 MG TAB PO SCH ×2 (08:32→17:11)
[2020-08-28] MEDS: HEPARIN SODIUM,PORCINE 5,000 UNIT/ML 1 ML VIAL SQ SCH ×4 (08:36→22:57)
[2020-08-28] MEDS: METOPROLOL SUCCINATE (ER) 25 MG TAB.ER.24H PO SCH (08:37)
--- NOTE | 2020-08-28 10:24 | P.HPIM ---
History of Present Illness H&P Date: 08/28/20 Chief Complaint: Right and left lower lobe pneumonia. This is a 59-year-old female patient of mine with past medical history of gastroesophageal reflux disease, hiatal hernia, hypertension and hypertensive cardio vascular, osteoarthritis, recurrent depression, hypothyroidism, hormone replacement therapy under the care of Dr. Wright. The patient developed to h ave a significant fever for the last week or so associated with a dry cough and postnasal drainage, she came to the emergency department at [facility] yesterday with a temperature of 103, she stated that she did not have any sick contacts, patient denies any loss of taste loss of smell, she denies any abdominal pain, nausea or vomiting she did have diarrhea, she has no skin rash, patient had a chest x-ray in the ER that showed left lower lobe infiltrate she did have a mild leukocytosis she was started on IV antibiotic and was admitted to the hospital, covert 19 PCR was obtained and still pending at the time of dictations, Patient will be placed in droplet precaution and as well as contact isolation with eye protection filled the result of the test is back, pulmonary consultation was obtained, her repeated cessation from today showed the resolution of the left midlung infiltrate however there is a newer patchy infiltrate at the right lower lobe. Review of Systems Constitutional: Reports chills, Reports fatigue, Reports fever, Reports malaise, Reports weakness, Denies anorexia Eyes: denies blurred vision, denies bulging eye, denies decreased vision, denies diplopia Ears, nose, mouth and throat: Denies dysphagia, Denies neck lump, Denies sore throat, Denies vertigo Cardiovascular: Reports decreased exercise tolerance, Reports dyspnea on exertion, Reports leg edema, Reports shortness of breath, Denies chest pain, Denies rapid heart beat, Denies syncope Respiratory: Reports congestion, Reports cough, Reports cough with sputum, R eports dyspnea, Reports sleep apnea, Reports snoring, Denies home oxygen, Denies wheezing Gastrointestinal: Denies abdominal pain, Denies bloating, Denies diarrhea, Denies dyspepsia, Denies heartburn, Denies loss of appetite, Denies melena, Denies nausea, Denies vomiting Genitourinary: Denies dysuria, Denies nocturia Menstruation: Reports postmenopausal Musculoskeletal: Denies myalgias Musculoskeletal: absent: ankle pain, ankle stiffness, ankle swelling, elbow pain, elbow stiffness, elbow swelling, foot pain, foot stiffness, foot swelling, hand pain, hand stiffness, hand swelling, hip pain, hip stiffness, hip swelling, knee pain, knee stiffness, knee swelling, shoulder pain, shoulder stiffness, shoulder swelling, wrist pain, wrist stiffness, wrist swelling Integumentary: Denies pruritus, Denies rash Neurological: Denies numbness, Denies weakness Psychiatric: Reports anxiety, Reports depression, Denies sadness/tearfulness, Denies sleep disturbances, Denies suicidal ideation Endocrine: Reports fatigue Past Medical History Past Medical History: GERD/Reflux, Hyperlipidemia, Hypertension, Osteoarthritis (OA), Thyroid Disorder Additional Past Medical History / Comment(s): hiatal hernia, thyroid goiter History of Any Multi-Drug Resistant Organisms: None Reported Past Surgical History: Section, Cholecystectomy, Joint Replacement Additional Past Surgical History / Comment(s): thyroidectomy, jaison knee Past Anesthesia/Blood Transfusion Reactions: Postoperative Nausea & Vomiting (PONV) Past Psychological History: No Psychological Hx Reported, Depression Smoking Status: Never smoker Past Alcohol Use History: None Reported Additional Past Alcohol Use History / Comment(s): Patient is a lifelong nonsmoker, no illicit drug use, no marijuana use, no alcohol use. She does not require a walker or cane. She does not have CPAP, nebulizer at home. Past Drug Use History: None Reported - Past Family History Mother Family Medical History: No Reported History Additional Family Medical History / Comment(s): Mother is alive with history of coronary artery disease and CABG 4 vessel at age 75. Father Family Medical History: Diabetes Mellitus Additional Family Medical History / Comment(s): Father is secondary to diabetes. Sister(s) Additional Family Medical History / Comment(s): Patient has 1 sister with no major medical problems. Patient does not have any brothers. Patient has 2 daughters with anxiety. No sons. Medications and Allergies Home Medications Medication Instructions Recorded Confirmed Type buPROPion HCL [Bupropion HCl] 100 mg PO BID 11/19/16 08/27/20 History Progesterone, Micronized 200 mg PO HS 03/29/18 08/27/20 History [Progesterone] Latanoprost Ophth [Xalatan 0.005%] 1 drop BOTH EYES HS 09/01/19 08/27/20 History Metoprolol Succinate (ER) [Toprol 25 mg PO DAILY 09/01/19 08/27/20 History XL] Levothyroxine Sodium [Synthroid] 150 mcg PO DAILY 09/22/19 08/27/20 History ALPRAZolam [Xanax] 0.25 mg PO DAILY PRN 08/27/20 08/27/20 History Hydrocortisone Cream 1 applic TOPICAL BID PRN 08/27/20 08/27/20 History [Hydrocortisone 2.5% Cream] Ibuprofen [Motrin] 800 mg PO Q12H PRN 08/27/20 08/27/20 History Allergies Allergy/AdvReac Type Severity Reaction Status Date / Time No Known Allergies Allergy Verified 08/27/20 18:40 Physical Exam Vitals: Vital Signs Temp Pulse Pulse Pulse Resp BP BP 08/28/20 07:00 99.0 F 72 17 124/74 08/28/20 01:57 113/65 08/28/20 01:55 99.4 F 72 18 98/69 08/28/20 00:00 77 18 08/27/20 20:06 98.3 F 60 18 113/66 08/27/20 17:00 98.6 F 77 18 121/74 08/27/20 15:28 101.7 F H 70 18 128/65 08/27/20 14:33 18 08/27/20 13:49 103.2 F H 96 22 138/84 Pulse Ox 08/28/20 07:00 95 08/28/20 01:57 08/28/20 01:55 97 08/28/20 00:00 08/27/20 20:06 94 L 08/27/20 17:00 97 08/27/20 15:28 96 08/27/20 14:33 08/27/20 13:49 94 L Intake and Output 08/27/20 08/28/20 08/28/20 22:59 06:59 14:59 Intake Total 300 630 Output Total 400 Balance -100 630 Intake: Intake, IV Titration 50 Amount cefTRIAXone 2 gm In 50 Sodium Chloride 0.9% 50 ml @ 100 mls/hr IVPB Q24HR [facility] Rx#:[id number] Oral 300 580 Output: Urine 400 Other: Voiding Method Toilet Toilet # Voids 1 3 1 # Bowel Movements 1 Weight 131.542 kg Physical examination: HEENT: Head is atraumatic, normocephalic, pupils were equal round reactive to light and recommendation, extraocular muscle movement were intact. Neck: Supple, no JVP or lymphadenopathy. Chest: Decreased breath sounds at the bases, few rhonchi, there is egophony at the right base no chest wall tenderness no intercostal retractions. Heart: First heart sound is depressed, second heart sound is normal, I could not appreciate a gallop or murmur. Abdomen: Soft obese nontender nondistended as well as sounds. Extremities: Chronic venous stasis with stasis dermatitis, and dorsalis pedis +2 bilaterally. Neurologic examination: Patient is awake alert and oriented 3, creatinine nerves III-12 appear grossly intact, muscle power 5 out of 5 in upper and lower extremities bilaterally, deep tendon reflexes were depressed bilaterally. Results CBC & Chem 7: 08/27/20 14:20 08/27/20 14:20 Labs: Abnormal Lab Results - Last 24 Hours (Table) 08/27/20 08/27/20 08/27/20 Range/Units 14:20 14:20 14:25 WBC 3.7 L (3.8-10.6) k/uL Lymphocytes # 0.7 L (1.0-4.8) k/uL Sodium 136 L (137-145) mmol/L Glucose 128 H (74-99) mg/dL Calcium 8.2 L (8.4-10.2) mg/dL AST 49 H (14-36) U/L C-Reactive Protein 34.8 H (<10.0) mg/L Urine Appearance Cloudy H (Clear) Urine Protein Trace H (Negative) Urine Bacteria Rare H (None) /hpf Urine Mucus Rare H (None) /hpf Thrombosis Risk Factor Assmnt - DVT/VTE Prophylaxis DVT/VTE Prophylaxis: Pharmacologic Prophylaxis ordered, Mechanical Prophylaxis ordered - Choose All That Apply Each Factor Represents 1 point: Age 41-60 years, Obesity (BMI >25), Serious lung disease incl. pneumonia (< 1month) Other Risk Factors: Yes Thrombosis Risk Factor Assessment Total Risk Factor Score: 3 Thrombosis Risk Factor Assessment Level: Moderate Risk Assessment and Plan Assessment: Assessment and plan: 1. Left and Right lower lobe pneumonia. Continue IV antibiotic Rocephin 1 g IV piggyback every 24 hours, Zithromax 500 mg IV piggyback every 24 hours, oxygen support, continue with the nebulized treatment albuterol 2.5 mg nebulization 4 times every day, monitor the patient very closely, sputum culture, COVID-19 PCR still pending, we'll continue with contact and droplet precautions with IV protection. 2. Leukopenia. Repeat the patient's CBC in the next 24 hours. 3. Sirs likely related the right lower lobe pneumonia continue IV fluid, continue IV antibiotic, obtain sputum culture as well as blood culture. 4. Hypertension and hypertensive cardiovascular disease Continue metoprolol ER 25 mg orally once every day as well as lisinopril 20/12.5 mg orally once every day. 5. Gastroesophageal reflux disease. Pepcid 20 mg orally once every day. 6. Hypothyroidism. Continue levothyroxine 150 g daily. 7. Recurrent depression. Continue Wellbutrin 100 mg twice daily. 8. Hormone replacement therapy. We will continue progesterone 20 mg at bedtime. 9. DVT prophylaxis. Continue heparin 5000 units subcutaneously every 8 hours per 10. GI prophylaxis. Continue Pepcid. 11. Admitted to inpatient. Estimate a length of stay 2 midnights. 12. Full code.
[2020-08-28] MEDS: SODIUM CHLORIDE 0.9% 1,000 ML IV SCH ×2 (10:50→19:26)
--- NOTE | 2020-08-28 11:26 | CONS ---
CONSULTATION PULMONARY/CRITICAL CARE CONSULTATION DATE OF SERVICE: August 28, 2020. REASON FOR CONSULTATION: Pneumonia. HISTORY: This is a 59-year-old female who presented to the emergency room on August 27 at 13:48. She apparently came in with complaint of fever. She had not been feeling well for about 4 days prior to admission. She felt like she had a temperature elevation and some chills. She had a dry cough. She also has some postnasal drainage. She also felt achy with muscle aches joint aches. She states that her kids were sick a week or so prior. She has had no recent known contact anyone who had tested positive for COVID- 19. She denies any chest pain or chest discomfort. She denies any abdominal pain, nausea, vomiting, diarrhea. She denies any genitourinary complaints. She does feel slightly short of breath. Again, the cough is nonproductive. Currently, she is resting comfortably. She is on a couple of L of O2. She states she does feel better today than she did yesterday. She was sort of hoping to be evaluated in the emergency room and be discharged home. The chest x-ray apparently does show some diffuse bilateral infiltrates, relatively mild, and she had again she was hoping to be treated at home. Nonetheless, she is here in the hospital. Her COVID-19 nasopharyngeal swab is pending. MEDICATIONS: Reviewed. She is on bupropion, progesterone, eye drops, metoprolol, levothyroxine, ascorbic acid, lisinopril/hydrochlorothiazide, aspirin [place], and Senokot. ALLERGIES: Lortab. MEDICAL HISTORY: Positive for hypothyroidism, and hypertension. She also has a history of hiatal hernia and thyroid goiter. SURGICAL HISTORY: Surgical history includes , cholecystectomy, bilateral knee replacement, and thyroidectomy. SOCIAL HISTORY: Negative for tobacco use. Denies any alcohol use or illicit drug use. FAMILY HISTORY: Positive for mother with a history of CAD status post 4-vessel bypass grafting, father with diabetes, and a sister without any major medical problems. REVIEW OF SYSTEMS: CONSTITUTIONAL: Fever, joint aches, muscle aches, achiness. NEUROLOGIC: Negative. HEENT: Nasal congestion. CARDIOVASCULAR: Negative. PULMONARY: Cough, nonproductive cough, mild shortness of breath. GI: Negative. : Negative. RHEUMATOLOGIC: Negative. IMMUNOLOGIC: Negative. ENDOCRINOLOGIC: Negative. DERMATOLOGIC: Negative. PHYSICAL EXAMINATION: VITAL SIGNS: Current vital signs are reviewed. Temperature is 99 degrees, Her T-max on admission was 103.2. Since that time, her temperature is normal. Heart rate respiratory rate 17, blood pressure 124/74 mean 90, and room air saturation have been from 94 at the low to 97 as a high. She appears in no acute distress. Currently not wearing any nasal O2. HEENT: Examination is grossly unremarkable. No supplemental oxygen. NECK: Supple full range of motion. No adenopathy. Neck veins are flat. CARDIOVASCULAR: Examination reveals regular rhythm and rate. Heart rate 72 beats per minute. S1, S2 normal. No S3, S4, or murmur. LUNGS: A few scattered rhonchi. No wheezes or crackles. ABDOMEN: Soft, but obese. Bowel sounds are heard. EXTREMITIES: Reveal some mild venous stasis changes in the lower extremities. Mild edema. SKIN: Without rash. NEUROLOGIC: Examination is brief but nonfocal. LABS/DIAGNOSTICS: Reviewed. Her influenza studies were negative. White count 3.7, hemoglobin 13.8, hematocrit 41.9, platelet count 166,000, sodium 136, potassium 4.2 chloride 106, CO2 of 23, anion gap 7. BUN and creatinine were 11 and 0.74, glucose 128, calcium 8.2, AST 49. C-reactive protein 34.8. Urine was yellow and cloudy. Trace protein. Rare bacteria. Influenza A and B studies negative. Plata virus testing is pending. Microbiology is negative. Chest x-ray shows some minimal bilateral lung infiltrates. Compared to the x-ray done the day prior, the left lung is a bit improved by the right looks a bit worse. MEDICATIONS: Current medications are reviewed, she is currently on Zithromax orally, Wellbutrin, ceftriaxone, subcu heparin, ibuprofen, DuoNeb, levothyroxine, metoprolol, Protonix, progesterone, and saline IV. ASSESSMENT: 1. Bilateral pneumonia, which may be viral/COVID-related and/or bacterial in nature. The patient is relatively asymptomatic and COVID-19 testing is pending. 2. History of hypothyroidism. 3. History of hiatal hernia. 4. Thyroid goiter. 5. History of hypertension. 6. Lifelong nonsmoker. PLAN: Awaiting COVID-19 test results. Currently, the patient is on [employer] as well as both Zithromax and Rocephin. No additional recommendations are made. The patient is relatively stable and could be discharged home. If COVID test comes back negative or positive, I think she could likely be treated at home. In fact, she appears to want to be home. No additional recommendations are made. Will await the test. Currently, her treatment plan is fine. MMODL / IJN: [id number] /
[2020-08-28] MEDS: AZITHROMYCIN 500 MG TAB PO SCH (11:36)
[2020-08-28] MEDS ORDERED: ACETAMINOPHEN TAB 325 MG TAB PO PRN (18:23)
[2020-08-28] MEDS: ONDANSETRON 4 MG/2 ML VIAL IVP STA ×2 (19:24→22:33)
[2020-08-28] MEDS: MELATONIN 5 MG TABLET PO SCH (19:25)
[2020-08-29 06:24] LABS: Basophils % (A) 0 %; Eosinophils % (A) 0 %; HCT 40.2 % (34.0-46.0); HGB 12.7 gm/dL (11.4-16.0); Hypochromasia Slight; Lymphocytes # (A) 0.9 k/uL (1.0-4.8); Lymphocytes % (A) 24 %; MCH 29.1 pg (25.0-35.0); MCHC 31.6 g/dL (31.0-37.0); MCV 92.1 fL (80.0-100.0); Mean Platelet Volume 7.1; Monocytes # (A) 0.2 k/uL (0-1.0); Monocytes % (A) 4 %; Neutrophils # (A) 2.7 k/uL (1.3-7.7); Neutrophils % (A) 70 %; Platelet Count 161 k/uL (150-450); RBC 4.37 m/uL (3.80-5.40); RDW 13.7 % (11.5-15.5); WBC 3.9 k/uL (3.8-10.6)
[2020-08-29] MEDS: AZITHROMYCIN 500 MG TAB PO SCH (07:54)
[2020-08-29] MEDS: buPROPion 100 MG TAB PO SCH ×2 (07:54→15:57)
[2020-08-29] MEDS: LEVOTHYROXINE 50 MCG TAB PO SCH (07:55)
[2020-08-29] MEDS: METOPROLOL SUCCINATE (ER) 25 MG TAB.ER.24H PO SCH (07:55)
[2020-08-29] MEDS: PANTOPRAZOLE 40 MG TABLET PO SCH ×2 (07:56→15:58)
[2020-08-29] MEDS: HEPARIN SODIUM,PORCINE 5,000 UNIT/ML 1 ML VIAL SQ SCH (07:59)
[2020-08-29] MEDS ORDERED: ONDANSETRON 4 MG/2 ML VIAL IVP STA (08:09)
--- NOTE | 2020-08-29 09:08 | XR ---
EXAMINATION TYPE: XR chest 1V portable DATE OF EXAM: 08/29/2020 COMPARISON: Prior chest x-ray 08/28/2020 HISTORY: Follow-up pneumonia TECHNIQUE: Single frontal view of the chest is obtained. FINDINGS: Patchy basilar density is again noted. No evident pneumothorax. Heart size is stable. No s izable effusion is present. There are overlying cardiac leads. IMPRESSION: There may be some improvement in aeration.
[2020-08-29] MEDS: IBUPROFEN 800 MG TAB PO PRN (10:42)
[2020-08-29] MEDS: SODIUM CHLORIDE 0.9% 1,000 ML IV SCH (12:05)
--- NOTE | 2020-08-29 13:31 | P.PN ---
Subjective Progress Note Date: 08/29/20 Principal diagnosis: Bilateral pneumonia, rule out COVID On 08/29/2020 patient seen in follow-up on general medical surgical floor. She is awake and alert, she is on room air, with pulse ox of 96%, breathing comfortably, she is oriented 3, appears to be in no acute distress. Does get short of breath with activity, occasional cough, no phlegm production. COVID test came back positive. Patient is on nebulized" otherwise, she is on azithromycin and Rocephin. Chest x-ray showed patchy basilar density, with some improvement in aeration. Afebrile Objective - Vital Signs Vital signs: Vital Signs Temp 98.6 F 08/29/20 10:45 Pulse 76 08/29/20 07:00 Resp 20 08/29/20 07:00 BP 133/80 08/29/20 07:00 Pulse Ox 96 08/29/20 07:00 Intake & Output 08/28/20 08/29/20 08/29/20 18:59 06:59 18:59 Intake Total 630 Balance 630 Intake: Intake, IV Titration 50 Amount cefTRIAXone 2 gm In 50 Sodium Chloride 0.9% 50 ml @ 100 mls/hr IVPB Q24HR [facility] Rx#:[id number] Oral 580 Other: Voiding Method Toilet Toilet # Voids 1 1 # Bowel Movements 1 - Exam GENERAL EXAM: Alert, 59-year-old white female on room air, comfortable in no apparent distress. HEAD: Normocephalic/atraumatic. EYES: Normal reaction of pupils, equal size. Conjunctiva pink, sclera white. NOSE: Clear with pink turbinates. THROAT: No erythema or exudates. NECK: No masses, no JVD, no thyroid enlargement, no adenopathy. CHEST: No chest wall deformity. Symmetrical expansion. LUNGS: Equal air entry with no crackles, wheeze, rhonchi or dullness. CVS: Regular rate and rhythm, normal S1 and S2, no gallops, no murmurs, no rubs ABDOMEN: Soft, nontender. No hepatosplenomegaly, normal bowel sounds, no guarding or rigidity. EXTREMITIES: No clubbing, no edema, no cyanosis, 2+ pulses and upper and lower extremities. MUSCULOSKELETAL: Muscle strength and tone normal. SPINE: No scoliosis or deformity SKIN: No rashes CENTRAL NERVOUS SYSTEM: Alert and oriented -3. No focal deficits, tone is normal in all 4 extremities. PSYCHIATRIC: Alert and oriented -3. Appropriate affect. Intact judgment and insight. - Labs CBC & Chem 7: 08/29/20 05:30 08/27/20 14:20 Labs: Abnormal Lab Results - Last 24 Hours (Table) 08/27/20 08/29/20 Range/Units 14:20 05:30 Lymphocytes # 0.9 L (1.0-4.8) k/uL Coronavirus (PCR) Detected H (Not Detected) Microbiology - Last 24 Hours (Table) 08/27/20 14:20 Blood Culture - Preliminary Blood No Growth after 24 hours Assessment and Plan Plan: Assessment: #1. Acute dyspnea related to acute COVID 19 related pneumonia. Chest x-ray showed bilateral pneumonia #2. Lymphopenia, fatigue, cough, shortness of breath related to the above #3. Hypertension #4. GERD/reflux #6. Osteoarthritis #7. Hypothyroidism #8. Lifetime nonsmoker Plan: We'll obtain stat d-dimer, inflammatory markers, we'll start the patient on prophylactic dose of Lovenox, will start the patient on Remdesivir, we will add Decadron, zinc supplement, vitamin C supplement, melatonin, follow inflammatory markers. We'll continue to follow I performed a history & physical examination of the patient and discussed their management with my nurse practitioner, Patricia Harmon. I reviewed the nurse practitioner's note and agree with the documented findings and plan of care. Lung sounds are positive for diminished breath sounds. The findings and the impression was discussed with the patient. I attest to the documentation by the nurse practitioner. Time with Patient: Less than 30
--- NOTE | 2020-08-29 13:53 | P.PN ---
Subjective Progress Note Date: 08/29/20 This is a 59-year-old female patient of mine with past medical history of gastroesophageal reflux disease, hiatal hernia, hypertension and hypertensive cardio vascular, osteoarthritis, recurrent depression, hypothyroidism, hormone replacement therapy under the care of Dr. Wright. The patient developed to have a significant fever for the last week or so associated with a dry cough and postnasal drainage, she came to the emergency department at [facility] yesterday with a temperature of 103, she stated that she did not have any sick contacts, patient denies any loss of taste loss of smell, she denies any abdominal pain, nausea or vomiting she did have diarrhea, she has no skin rash, patient had a chest x-ray in the ER that showed left lower lobe infiltrate she did have a mild leukocytosis she was started on IV antibiotic and was admitted to the hospital, covert 19 PCR was obtained and still pending at the time of dictations, Patient will be placed in droplet precaution and as well as contact isolation with eye protection filled the result of the test is back, pulmonary consultation was obtained, her repeated cessation from today showed the resolution of the left midlung infiltrate however there is a newer patchy infiltrate at the right lower lobe. 08/29: Patient is followed by pulmonary medicine. Covid 19 testing is positive. Patient has shortness of breath with activity. Pulse ox is 96% on room air, afebrile, heart rate 76 and blood pressure 133/80. Repeat CBC reveals WBC 3.9, hemoglobin 12.7, platelet count 161. Repeat chest x-ray reveals some impro vement in aeration. Lovenox, Remdesivir and Decadron, zinc and vitamin C initiated by pulmonary medicine. Objective - Vital Signs Vital signs: Vital Signs Temp 98.6 F 08/29/20 10:45 Pulse 76 08/29/20 07:00 Resp 20 08/29/20 07:00 BP 133/80 08/29/20 07:00 Pulse Ox 96 08/29/20 07:00 Intake & Output 08/28/20 08/29/20 08/29/20 18:59 06:59 18:59 Intake Total 630 Balance 630 Intake: Intake, IV Titration 50 Amount cefTRIAXone 2 gm In 50 Sodium Chloride 0.9% 50 ml @ 100 mls/hr IVPB Q24HR [facility] Rx#:[id number] Oral 580 Other: Voiding Method Toilet Toilet # Voids 1 1 # Bowel Movements 1 - Exam Review of Systems Constitutional: Reports chills, Reports fatigue, Reports fever, Reports generalized malaise, Reports weakness, Denies anorexia Eyes: denies blurred vision, denies bulging eye, denies decreased vision, denies diplopia Ears, nose, mouth and throat: Denies dysphagia, Denies neck lump, Denies sore throat, Denies vertigo Cardiovascular: Reports decreased exercise tolerance, Reports dyspnea on exertion, Reports leg edema, Reports shortness of breath, Denies chest pain, Denies rapid heart beat, Denies syncope Respiratory: Reports congestion, Reports cough, Reports cough with sputum, Reports dyspnea, Reports sleep apnea, Reports snoring, Denies home oxygen, Denies wheezing Gastrointestinal: Denies abdominal pain, Denies bloating, Denies diarrhea, Denies dyspepsia, Denies heartburn, Denies loss of appetite, Denies melena, Denies nausea, Denies vomiting Genitourinary: Denies dysuria, Denies nocturia Menstruation: Reports postmenopausal Musculoskeletal: Denies myalgias Musculoskeletal: absent: ankle pain, ankle stiffness, ankle swelling, elbow pain, elbow stiffness, elbow swelling, foot pain, foot stiffness, foot swelling, hand pain, hand stiffness, hand swelling, hip pain, hip stiffness, hip swelling, knee pain, knee stiffness, knee swelling, shoulder pain, shoulder stiffness, shoulder swelling, wrist pain, wrist stiffness, wrist swelling Integumentary: Denies pruritus, Denies rash Neurological: Denies numbness, Denies weakness Psychiatric: Reports anxiety, Reports depression, Denies sadness/tearfulness, Denies sleep disturbances, Denies suicidal ideation Endocrine: Reports fatigue Physical examination: HEENT: Head is atraumatic, normocephalic, pupils were equal round reactive to light and recommendation, extraocular muscle movement were intact. Neck: Supple, no JVP or lymphadenopathy. Chest: Decreased breath sounds at the bases, few rhonchi, there is egophony at the right base no chest wall tenderness no intercostal retractions. Heart: First heart sound is depressed, second heart sound is normal, I could not appreciate a gallop or murmur. Abdomen: Soft obese nontender nondistended as well as sounds. Extremities: Chronic venous stasis with stasis dermatitis, and dorsalis pedis +2 bilaterally. Neurologic examination: Patient is awake alert and oriented 3, creatinine ner ves III-12 appear grossly intact, muscle power 5 out of 5 in upper and lower extremities bilaterally, deep tendon reflexes were depressed bilaterally. - Labs CBC & Chem 7: 08/29/20 05:30 08/27/20 14:20 Labs: Abnormal Lab Results - Last 24 Hours (Table) 08/27/20 08/29/20 Range/Units 14:20 05:30 Lymphocytes # 0.9 L (1.0-4.8) k/uL Coronavirus (PCR) Detected H (Not Detected) Microbiology - Last 24 Hours (Table) 08/27/20 14:20 Blood Culture - Preliminary Blood No Growth after 24 hours Assessment and Plan Plan: 1. Left and Right lower lobe pneumonia with acute Covid pneumonia (POA). Lovenox, Remdesivir and Decadron, zinc and vitamin C initiated by pulmonary medicine. Continue IV antibiotic Rocephin 1 g IV piggyback every 24 hours, Zithromax 500 mg IV piggyback every 24 hours, oxygen support, continue with the nebulized treatment albuterol 2.5 mg nebulization 4 times every day, sputum culture, continue with contact and droplet precautions. 2. Leukopenia. Improved on repeat CBC. 3. Sirs likely related the right lower lobe pneumonia continue IV fluid, continue IV antibiotic, obtain sputum culture as well as blood culture. 4. Hypertension and hypertensive cardiovascular disease Continue metoprolol ER 25 mg orally once every day as well as lisinopril 20/12.5 mg orally once every day. 5. Gastroesophageal reflux disease. Pepcid 20 mg orally once every day. 6. Hypothyroidism. Continue levothyroxine 150 g daily. 7. Recurrent depression. Continue Wellbutrin 100 mg twice daily. 8. Hormone replacement therapy. We will continue progesterone 20 mg at bedtime. 9. DVT prophylaxis. Lovenox 40 mg subcu daily. 10. GI prophylaxis. Continue Pepcid. 11. Full code. Discharge plan: Home Impression and plan of care have been directed as dictated by the signing physician. Avelina Worley nurse practitioner acting as scribe for signing physician.
[2020-08-29] MEDS ORDERED: REMDESIVIR (EUA) 200 MG in SODIUM CHLORIDE 0.9% 250 ML IVPB ONE (15:00)
[2020-08-29 15:18] LABS: C Reactive Protein 66.7 mg/L (<10.0); Magnesium 2.1 mg/dL (1.6-2.3)
[2020-08-29 15:21] LABS: D-Dimer 1.38 mg/L FEU (<0.60)
[2020-08-29 15:47] LABS: African American GFR (CKD) 93.5 (60.0-200.0); Albumin 3.6 g/dL (3.80-4.90); Albumin/Globulin Ratio 1.57 (1.60-3.17); Anion Gap 8.1 mmol/L (4.00-12.00); BUN/Creat Ratio 12.5 Ratio (12.00-20.00); Calcium 7.9 mg/dL (8.7-10.3); Carbon Dioxide 24.9 mmol/L (21.6-31.8); Globulin 2.3 g/dL (1.6-3.3); Non-African American GFR(CKD) 80.7 (60.0-200.0); Potassium 3.8 mmol/L (3.5-5.5); Total Bilirubin 0.4 mg/dL (0.3-1.2); Total Protein 5.9 g/dL (6.2-8.2)
[2020-08-29] MEDS: dexAMETHasone 2 MG TAB PO SCH (15:57)
[2020-08-29] MEDS: ASCORBIC ACID 500 MG TAB PO SCH (15:57)
[2020-08-29] MEDS: ZINC SULFATE 220 MG CAP PO SCH (15:57)
[2020-08-29] MEDS: ENOXAPARIN 40 MG/0.4 ML SYRINGE SQ SCH (15:58)
[2020-08-29] MEDS: MELATONIN 5 MG TABLET PO SCH (20:03)
[2020-08-29] MEDS: ONDANSETRON 4 MG/2 ML VIAL IVP PRN (20:04)
[2020-08-30 06:39] LABS: Basophils % (A) 1 %; Eosinophils % (A) 0 %; HCT 42.6 % (34.0-46.0); HGB 13.6 gm/dL (11.4-16.0); Lymphocytes # (A) 0.5 k/uL (1.0-4.8); Lymphocytes % (A) 24 %; MCH 28.9 pg (25.0-35.0); MCHC 31.9 g/dL (31.0-37.0); MCV 90.8 fL (80.0-100.0); Mean Platelet Volume 7.1; Monocytes # (A) 0.1 k/uL (0-1.0); Monocytes % (A) 3 %; Neutrophils # (A) 1.4 k/uL (1.3-7.7); Neutrophils % (A) 69 %; Platelet Count 171 k/uL (150-450); RBC 4.69 m/uL (3.80-5.40); RDW 13.4 % (11.5-15.5)
[2020-08-30 06:53] LABS: D-Dimer 1.09 mg/L FEU (<0.60)
[2020-08-30] MEDS: ASCORBIC ACID 500 MG TAB PO SCH (08:05)
[2020-08-30] MEDS: LEVOTHYROXINE 50 MCG TAB PO SCH (08:05)
[2020-08-30] MEDS: AZITHROMYCIN 500 MG TAB PO SCH (08:05)
[2020-08-30] MEDS: dexAMETHasone 2 MG TAB PO SCH (08:05)
[2020-08-30] MEDS: ZINC SULFATE 220 MG CAP PO SCH (08:05)
[2020-08-30] MEDS: METOPROLOL SUCCINATE (ER) 25 MG TAB.ER.24H PO SCH (08:05)
[2020-08-30] MEDS: CHOLECALCIFEROL 400 UNIT TAB PO SCH (08:05)
[2020-08-30] MEDS: buPROPion 100 MG TAB PO SCH ×2 (08:05→16:57)
[2020-08-30] MEDS: PANTOPRAZOLE 40 MG TABLET PO SCH ×2 (08:05→16:57)
[2020-08-30] MEDS: ENOXAPARIN 40 MG/0.4 ML SYRINGE SQ SCH (08:06)
[2020-08-30] MEDS: ONDANSETRON 4 MG/2 ML VIAL IVP PRN (08:11)
[2020-08-30 09:17] LABS: Magnesium 2.1 mg/dL (1.5-2.4)
--- NOTE | 2020-08-30 10:59 | P.PN ---
Subjective Progress Note Date: 08/30/20 This is a 59-year-old female patient of mine with past medical history of gastroesophageal reflux disease, hiatal hernia, hypertension and hypertensive cardio vascular, osteoarthritis, recurrent depression, hypothyroidism, hormone replacement therapy under the care of Dr. Wright. The patient developed to have a significant fever for the last week or so associated with a dry cough and postnasal drainage, she came to the emergency department at [facility] yesterday with a temperature of 103, she stated that she did not have any sick contacts, patient denies any loss of taste loss of smell, she denies any abdominal pain, nausea or vomiting she did have diarrhea, she has no skin rash, patient had a chest x-ray in the ER that showed left lower lobe infiltrate she did have a mild leukocytosis she was started on IV antibiotic and was admitted to the hospital, covert 19 PCR was obtained and still pending at the time of dictations, Patient will be placed in droplet precaution and as well as contact isolation with eye protection filled the result of the test is back, pulmonary consultation was obtained, her repeated cessation from today showed the resolution of the left midlung infiltrate however there is a newer patchy infiltrate at the right lower lobe. 08/29: Patient is followed by pulmonary medicine. Covid 19 testing is positive. Patient has shortness of breath with activity. Pulse ox is 96% on room air, afebrile, heart rate 76 and blood pressure 133/80. Repeat CBC reveals WBC 3.9, hemoglobin 12.7, platelet count 161. Repeat chest x-ray reveals some impro vement in aeration. Lovenox, Remdesivir and Decadron, zinc and vitamin C initiated by pulmonary medicine. 08/30: No new complaints overnight. Patient has been afebrile, heart rate 69, blood pressure 127/81, pulse ox 94% on room air. 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 D-dimer is improved at 1.09, fibrinogen is increased to 554, magnesium is 2.1. LDH is 340 which is improved, CK 160, C-reactive protein is much improved at 7. Patient complains of nausea for which Zofran is available. She is on day 2/5 of Remdesivir. Objective - Vital Signs Vital signs: Vital Signs Temp 98.5 F 10/27/20 07:00 Pulse 69 08/30/20 07:00 Resp 20 08/30/20 07:00 BP 127/81 08/30/20 07:00 Pulse Ox 94 L 08/30/20 07:00 Intake & Output 08/29/20 08/30/20 08/30/20 18:59 06:59 18:59 Intake Total 225 Balance 225 Intake: Intake, IV Titration 225 Amount Sodium Chloride 0.9% 1, 225 000 ml @ 75 mls/hr IV . [id number] [facility] Rx#:[id number] Other: Voiding Method Toilet # Voids 3 2 - Exam Review of Systems Constitutional: Reports chills, Reports fatigue, Reports fever, Reports generalized malaise, Reports weakness, Denies anorexia Eyes: denies blurred vision, denies bulging eye, denies decreased vision, denies diplopia Ears, nose, mouth and throat: Denies dysphagia, Denies neck lump, Denies sore throat, Denies vertigo Cardiovascular: Reports decreased exercise tolerance, Reports dyspnea on exertion, Reports leg edema, Reports shortness of breath, Denies chest pain, Denies rapid heart beat, Denies syncope Respiratory: Reports congestion, Reports cough, Reports cough with sputum, Reports dyspnea, Reports sleep apnea, Reports snoring, Denies home oxygen, Denies wheezing Gastrointestinal: Denies abdominal pain, Denies bloating, Denies diarrhea, Denies dyspepsia, Denies heartburn, Denies loss of appetite, Denies melena, reports nausea, Denies vomiting Genitourinary: Denies dysuria, Denies nocturia Menstruation: Reports postmenopausal Musculoskeletal: Denies myalgias Musculoskeletal: absent: ankle pain, ankle stiffness, ankle swelling, elbow pain, elbow stiffness, elbow swelling, foot pain, foot stiffness, foot swelling, hand pain, hand stiffness, hand swelling, hip pain, hip stiffness, hip swelling, knee pain, knee stiffness, knee swelling, shoulder pain, shoulder stiffness, shoulder swelling, wrist pain, wrist stiffness, wrist swelling Integumentary: Denies pruritus, Denies rash Neurological: Denies numbness, Denies weakness Psychiatric: Reports anxiety, Reports depression, Denies sadness/tearfulness, Denies sleep disturbances, Denies suicidal ideation Endocrine: Reports fatigue Physical examination: HEENT: Head is atraumatic, normocephalic, pupils were equal round reactive to light and recommendation, extraocular muscle movement were intact. Neck: Supple, no JVP or lymphadenopathy. Chest: Decreased breath sounds at the bases, few rhonchi, there is egophony at the right base no chest wall tenderness no intercostal retractions. Heart: First heart sound is depressed, second heart sound is normal, I could not appreciate a gallop or murmur. Abdomen: Soft obese nontender nondistended as well as sounds. No abdominal tenderness. Extremities: Chronic venous stasis with stasis dermatitis, and dorsalis pedis +2 bilaterally. Neurologic examination: Patient is awake alert and oriented 3, creatinine nerves III-12 appear grossly intact, muscle power 5 out of 5 in upper and lower extremities bilaterally, deep tendon reflexes were depressed bilaterally. - Labs CBC & Chem 7: 08/30/20 06:12 08/29/20 05:30 Labs: Abnormal Lab Results - Last 24 Hours (Table) 08/27/20 08/29/20 08/29/20 Range/Units 14:20 05:30 14:46 WBC (3.8-10.6) k/uL Lymphocytes # (1.0-4.8) k/uL Fibrinogen 512 H (200-500) mg/dL D-Dimer 1.38 H (<0.60) mg/L FEU Calcium 7.9 L (8.7-10.3) mg/dL Lactate Dehydrogenase (313-618) U/L C-Reactive Protein (<10.0) mg/L Total Protein 5.9 L (6.2-8.2) g/dL Albumin 3.60 L (3.80-4.90) g/dL Albumin/Globulin Ratio 1.57 L (1.60-3.17) g/dL Coronavirus (PCR) Detected H (Not Detected) 08/29/20 08/30/20 08/30/20 Range/Units 14:46 06:12 06:12 WBC 2.0 L (3.8-10.6) k/uL Lymphocytes # 0.5 L (1.0-4.8) k/uL Fibrinogen 554 H (200-500) mg/dL D-Dimer 1.09 H (<0.60) mg/L FEU Calcium (8.7-10.3) mg/dL Lactate Dehydrogenase 912 H (313-618) U/L C-Reactive Protein 66.7 H (<10.0) mg/L Total Protein (6.2-8.2) g/dL Albumin (3.80-4.90) g/dL Albumin/Globulin Ratio (1.60-3.17) g/dL Coronavirus (PCR) (Not Detected) Microbiology - Last 24 Hours (Table) 08/27/20 14:20 Blood Culture - Preliminary Blood No Growth after 48 hours Assessment and Plan Plan: 1. Left and Right lower lobe pneumonia with acute Covid pneumonia (POA). Continue Lovenox, Remdesivir and Decadron, zinc and vitamin C initiated by pulmonary medicine. Continue IV antibiotic Rocephin 1 g IV piggyback every 24 hours, Zithromax 500 mg IV piggyback every 24 hours, oxygen support, continue with the nebulized treatment albuterol 2.5 mg nebulization 4 times every day, sputum culture, continue with contact and droplet precautions. 2. Leukopenia. Improved on repeat CBC. 3. Sirs likely related the right lower lobe pneumonia. Continue continue IV antibiotic, obtain sputum culture as well as blood culture. 4. Hypertension and hypertensive cardiovascular disease Continue metoprolol ER 25 mg orally once every day. 5. Gastroesophageal reflux disease. Protonix 40 mg twice daily. 6. Hypothyroidism. Continue levothyroxine 150 g daily. 7. Recurrent depression. Continue Wellbutrin 100 mg twice daily. 8. Hormone replacement therapy. We will continue progesterone 20 mg at bedtime. 9. DVT prophylaxis. Lovenox 40 mg subcu daily. 10. GI prophylaxis. Continue Pepcid. 11. Full code. Discharge plan: Home Impression and plan of care have been directed as dictated by the signing physician. Avelina Worley nurse practitioner acting as scribe for signing physician.
[2020-08-30] MEDS: REMDESIVIR (EUA) 100 MG in SODIUM CHLORIDE 0.9% 250 ML IVPB SCH (15:26)
--- NOTE | 2020-08-30 15:49 | P.PN ---
Subjective Progress Note Date: 08/30/20 Principal diagnosis: Bilateral pneumonia, rule out COVID On 08/29/2020 patient seen in follow-up on general medical surgical floor. She is awake and alert, she is on room air, with pulse ox of 96%, breathing comfortably, she is oriented 3, appears to be in no acute distress. Does get short of breath with activity, occasional cough, no phlegm production. COVID test came back positive. Patient is on nebulized" otherwise, she is on azithromycin and Rocephin. Chest x-ray showed patchy basilar density, with some improvement in aeration. Afebrile On 08/30/2020 patient seen in follow-up on medical surgical floor, she is on day 2 of Remdesivir, feeling better, no fever, she is on room air, he stated that last night she felt very short of breath while walking to the bathroom, feeling better today. She is sitting up in the recliner, appears to be breathing comfortably at rest. Room air pulse ox is 94-95 percent. No nausea vomiting no diarrhea, today's labs have been reviewed, with blood cell count is 2.0, hemoglobin is 13.6, d-dimer is 1.09, inflammatory markers are trending down, LDH is down to 340 COPD down to 7.0 Objective - Vital Signs Vital signs: Vital Signs Temp 98.5 F 08/30/20 07:00 Pulse 69 08/30/20 07:00 Resp 20 08/30/20 07:00 BP 127/81 08/30/20 07:00 Pulse Ox 94 L 08/30/20 07:00 Intake & Output 08/29/20 08/30/20 08/30/20 18:59 06:59 18:59 Intake Total 225 1160 Balance 225 1160 Intake: Intake, IV Titration 225 Amount Sodium Chloride 0.9% 1, 225 000 ml @ 75 mls/hr IV . [id number] [facility] Rx#:[id number] Oral 1160 Other: Voiding Method Toilet # Voids 3 2 - Exam GENERAL EXAM: Alert, 59-year-old white female on room air, comfortable in no apparent distress. HEAD: Normocephalic/atraumatic. EYES: Normal reaction of pupils, equal size. Conjunctiva pink, sclera white. NOSE: Clear with pink turbinates. THROAT: No erythema or exudates. NECK: No masses, no JVD, no thyroid enlargement, no adenopathy. CHEST: No chest wall deformity. Symmetrical expansion. LUNGS: Equal air entry with no crackles, wheeze, rhonchi or dullness. CVS: Regular rate and rhythm, normal S1 and S2, no gallops, no murmurs, no rubs ABDOMEN: Soft, nontender. No hepatosplenomegaly, normal bowel sounds, no guarding or rigidity. EXTREMITIES: No clubbing, no edema, no cyanosis, 2+ pulses and upper and lower extremities. MUSCULOSKELETAL: Muscle strength and tone normal. SPINE: No scoliosis or deformity SKIN: No rashes CENTRAL NERVOUS SYSTEM: Alert and oriented -3. No focal deficits, tone is normal in all 4 extremities. PSYCHIATRIC: Alert and oriented -3. Appropriate affect. Intact judgment and insight. - Labs CBC & Chem 7: 08/30/20 06:12 08/29/20 05:30 Labs: Abnormal Lab Results - Last 24 Hours (Table) 08/29/20 08/30/20 08/30/20 Range/Units 05:30 06:12 06:12 WBC 2.0 L (3.8-10.6) k/uL Lymphocytes # 0.5 L (1.0-4.8) k/uL Fibrinogen 554 H (200-500) mg/dL D-Dimer 1.09 H (<0.60) mg/L FEU Calcium 7.9 L (8.7-10.3) mg/dL Lactate Dehydrogenase (120-246) U/L C-Reactive Protein (0.0-0.8) mg/dL Total Protein 5.9 L (6.2-8.2) g/dL Albumin 3.60 L (3.80-4.90) g/dL Albumin/Globulin Ratio 1.57 L (1.60-3.17) g/dL 08/30/20 Range/Units 06:12 WBC (3.8-10.6) k/uL Lymphocytes # (1.0-4.8) k/uL Fibrinogen (200-500) mg/dL D-Dimer (<0.60) mg/L FEU Calcium (8.7-10.3) mg/dL Lactate Dehydrogenase 340 H (120-246) U/L C-Reactive Protein 7.0 H (0.0-0.8) mg/dL Total Protein (6.2-8.2) g/dL Albumin (3.80-4.90) g/dL Albumin/Globulin Ratio (1.60-3.17) g/dL Microbiology - Last 24 Hours (Table) 08/27/20 14:20 Blood Culture - Preliminary Blood No Growth after 48 hours Assessment and Plan Plan: Assessment: #1. Acute dyspnea related to acute COVID 19 related pneumonia. Chest x-ray showed bilateral pneumonia #2. Lymphopenia, fatigue, cough, shortness of breath related to the above #3. Hypertension #4. GERD/reflux #6. Osteoarthritis #7. Hypothyroidism #8. Lifetime nonsmoker Plan: Continue current medical treatment, patient is on day 2 of Remdesivir, continue with Decadron, at therapeutic doses of Lovenox, we'll continue to follow inflammatory markers, patient is feeling better today, although still has exertional dyspnea, and a oxygenation patterns and febrile pattern, we'll follow I performed a history & physical examination of the patient and discussed their management with my nurse practitioner, Patricia Harmon. I reviewed the nurse practitioner's note and agree with the documented findings and plan of care. Lung sounds are positive for diminished breath sounds. The findings and the impression was discussed with the patient. I attest to the documentation by the nurse practitioner. Time with Patient: Less than 30
[2020-08-30] MEDS: MELATONIN 5 MG TABLET PO SCH (20:43)
[2020-08-30] MEDS: LATANOPROST 0.005% OPHTH DROPS 2.5 ML BTL BOTH EYES SCH (20:43)
[2020-08-31 06:22] LABS: Basophils % (A) 0 %; Eosinophils % (A) 0 %; HCT 40.3 % (34.0-46.0); HGB 12.8 gm/dL (11.4-16.0); Lymphocytes # (A) 0.9 k/uL (1.0-4.8); Lymphocytes % (A) 14 %; MCH 28.8 pg (25.0-35.0); MCHC 31.8 g/dL (31.0-37.0); MCV 90.6 fL (80.0-100.0); Mean Platelet Volume 7.5; Monocytes # (A) 0.3 k/uL (0-1.0); Monocytes % (A) 5 %; Neutrophils # (A) 5.2 k/uL (1.3-7.7); Neutrophils % (A) 78 %; Platelet Count 247 k/uL (150-450); RBC 4.45 m/uL (3.80-5.40); RDW 13.5 % (11.5-15.5); WBC 6.7 k/uL (3.8-10.6)
[2020-08-31 06:32] LABS: D-Dimer 0.76 mg/L FEU (<0.60)
[2020-08-31] MEDS: buPROPion 100 MG TAB PO SCH ×2 (07:46→17:17)
[2020-08-31] MEDS: CHOLECALCIFEROL 400 UNIT TAB PO SCH (07:46)
[2020-08-31] MEDS: LEVOTHYROXINE 50 MCG TAB PO SCH (07:46)
[2020-08-31] MEDS: dexAMETHasone 2 MG TAB PO SCH (07:46)
[2020-08-31] MEDS: PANTOPRAZOLE 40 MG TABLET PO SCH ×2 (07:47→17:17)
[2020-08-31] MEDS: METOPROLOL SUCCINATE (ER) 25 MG TAB.ER.24H PO SCH (07:47)
[2020-08-31] MEDS: ONDANSETRON 4 MG/2 ML VIAL IVP PRN (07:47)
[2020-08-31] MEDS: ENOXAPARIN 40 MG/0.4 ML SYRINGE SQ SCH (07:47)
[2020-08-31] MEDS: ASCORBIC ACID 500 MG TAB PO SCH (07:47)
[2020-08-31] MEDS: AZITHROMYCIN 500 MG TAB PO SCH (07:47)
[2020-08-31] MEDS: ZINC SULFATE 220 MG CAP PO SCH (07:48)
[2020-08-31 09:53] LABS: C Reactive Protein 2.1 mg/dL (0.0-0.8); Magnesium 2.1 mg/dL (1.5-2.4)
--- NOTE | 2020-08-31 10:05 | P.PN ---
Subjective Progress Note Date: 08/31/20 This is a 59-year-old female patient of mine with past medical history of gastroesophageal reflux disease, hiatal hernia, hypertension and hypertensive cardio vascular, osteoarthritis, recurrent depression, hypothyroidism, hormone replacement therapy under the care of Dr. Wright. The patient developed to have a significant fever for the last week or so associated with a dry cough and postnasal drainage, she came to the emergency department at [facility] yesterday with a temperature of 103, she stated that she did not have any sick contacts, patient denies any loss of taste loss of smell, she denies any abdominal pain, nausea or vomiting she did have diarrhea, she has no skin rash, patient had a chest x-ray in the ER that showed left lower lobe infiltrate she did have a mild leukocytosis she was started on IV antibiotic and was admitted to the hospital, covert 19 PCR was obtained and still pending at the time of dictations, Patient will be placed in droplet precaution and as well as contact isolation with eye protection filled the result of the test is back, pulmonary consultation was obtained, her repeated cessation from today showed the resolution of the left midlung infiltrate however there is a newer patchy infiltrate at the right lower lobe. 08/29: Patient is followed by pulmonary medicine. Covid 19 testing is positive. Patient has shortness of breath with activity. Pulse ox is 96% on room air, afebrile, heart rate 76 and blood pressure 133/80. Repeat CBC reveals WBC 3.9, hemoglobin 12.7, platelet count 161. Repeat chest x-ray reveals some impro vement in aeration. Lovenox, Remdesivir and Decadron, zinc and vitamin C initiated by pulmonary medicine. 08/30: No new complaints overnight. Patient has been afebrile, heart rate 69, blood pressure 127/81, pulse ox 94% on room air. air sampling and monitoring is sinus rhythm Repeat blood work reveals WBC 2.0, hemoglobin 13.6, platelet count 171. D-dimer is improved at 1.09, fibrinogen is increased to 554, magnesium is 2.1. LDH is 340 which is improved, CK 160, C-reactive protein is much improved at 7. Patient complains of nausea for which Zofran is available. She is on day 2/5 of Remdesivir. 08/31: Patient had a good night. She continues to have some shortness of breath with activity and is cough as well. No sputum production. She is day #3 of Remdesivir. She has been afebrile, heart rate 66, blood pressure 132/79, pulse ox 94% on room air. CBC is normal. Other lab work is showing improvement with d-dimer down to 0.76, LDH 288, C-reactive protein 2.1. Anticipate discharge home on Saturday. Objective - Vital Signs Vital signs: Vital Signs Temp 97.6 F 08/31/20 03:03 Pulse 66 08/31/20 03:03 Resp 18 08/31/20 03:03 BP 132/79 08/31/20 03:03 Pulse Ox 94 L 08/31/20 03:03 Intake & Output 08/30/20 08/31/20 08/31/20 18:59 06:59 18:59 Intake Total 1160 Balance 1160 Intake: Oral 1160 Other: Voiding Method Toilet # Voids 3 1 # Bowel Movements 1 - Exam Review of Systems Constitutional: Denies chills, Reports fatigue, denies fever, Reports generalized malaise, Reports weakness, Denies anorexia Eyes: denies blurred vision, denies bulging eye, denies decreased vision, denies diplopia Ears, nose, mouth and throat: Denies dysphagia, Denies neck lump, Denies sore throat, Denies vertigo Cardiovascular: Reports decreased exercise tolerance, Reports dyspnea on exertion, Reports leg edema, Reports shortness of breath, Denies chest pain, Denies rapid heart beat, Denies syncope Respiratory: Reports congestion, Reports cough, denies cough with sputum, Reports dyspnea, Reports sleep apnea, Reports snoring, Denies home oxygen, Denies wheezing Gastrointestinal: Denies abdominal pain, Denies bloating, Denies diarrhea, Denies dyspepsia, Denies heartburn, Denies loss of appetite, Denies melena, reports nausea, Denies vomiting Genitourinary: Denies dysuria, Denies nocturia Menstruation: Reports postmenopausal Musculoskeletal: Denies myalgias Musculoskeletal: absent: ankle pain, ankle stiffness, ankle swelling, elbow pain, elbow stiffness, elbow swelling, foot pain, foot stiffness, foot swelling, hand pain, hand stiffness, hand swelling, hip pain, hip stiffness, hip swelling, knee pain, knee stiffness, knee swelling, shoulder pain, shoulder stiffness, shoulder swelling, wrist pain, wrist stiffness, wrist swelling Integumentary: Denies pruritus, Denies rash Neurological: Denies numbness, Denies weakness Psychiatric: Reports anxiety, Reports depression, Denies sadness/tearfulness, Denies sleep disturbances, Denies suicidal ideation Endocrine: Reports fatigue Physical examination: HEENT: Head is atraumatic, normocephalic, pupils were equal round reactive to light and recommendation, extraocular muscle movement were intact. Patient is resting in bed comfortable. Neck: Supple, no JVP or lymphadenopathy. Chest: Decreased breath sounds at the bases, few rhonchi, there is egophony at the right base no chest wall tenderness no intercostal retractions. Heart: First heart sound is depressed, second heart sound is normal, I could not appreciate a gallop or murmur. Abdomen: Soft obese nontender nondistended as well as sounds. No abdominal tenderness. Extremities: Chronic venous stasis with stasis dermatitis, and dorsalis pedis +2 bilaterally. Neurologic examination: Patient is awake alert and oriented 3, creatinine nerves III-12 appear grossly intact, muscle power 5 out of 5 in upper and lower extremities bilaterally, deep tendon reflexes were depressed bilaterally. - Labs CBC & Chem 7: 08/31/20 05:49 08/29/20 05:30 Labs: Abnormal Lab Results - Last 24 Hours (Table) 08/30/20 08/31/20 08/31/20 Range/Units 06:12 05:49 05:49 Lymphocytes # 0.9 L (1.0-4.8) k/uL D-Dimer 0.76 H (<0.60) mg/L FEU Lactate Dehydrogenase 340 H (120-246) U/L C-Reactive Protein 7.0 H (0.0-0.8) mg/dL Microbiology - Last 24 Hours (Table) 08/27/20 14:20 Blood Culture - Preliminary Blood No Growth after 72 hours Assessment and Plan Plan: 1. Left and Right lower lobe pneumonia with acute Covid pneumonia (POA). Continue Lovenox, Remdesivir 3/5 and Decadron, zinc and vitamin C initiated by pulmonary medicine. Continue IV antibiotic Rocephin 1 g IV piggyback every 24 hours, Zithromax 500 mg IV piggyback every 24 hours, oxygen support, continue with the nebulized treatment albuterol 2.5 mg nebulization 4 times every day, sputum culture, continue with contact and droplet precautions. 2. Leukopenia. Improved on repeat CBC. 3. Sirs likely related the right lower lobe pneumonia. Continue continue IV antibiotic, obtain sputum culture as well as blood culture. 4. Hypertension and hypertensive cardiovascular disease Continue metoprolol ER 25 mg orally once every day. 5. Gastroesophageal reflux disease. Protonix 40 mg twice daily. 6. Hypothyroidism. Continue levothyroxine 150 g daily. 7. Recurrent depression. Continue Wellbutrin 100 mg twice daily. 8. Hormone replacement therapy. We will continue progesterone 20 mg at bedtime . 9. DVT prophylaxis. Lovenox 40 mg subcu daily. 10. GI prophylaxis. Continue Pepcid. 11. Full code. Discharge plan: Home on Saturday Impression and plan of care have been directed as dictated by the signing physician. Avelina Worley nurse practitioner acting as scribe for signing physician.
--- NOTE | 2020-08-31 13:28 | P.PN ---
Subjective Progress Note Date: 08/31/20 Principal diagnosis: CoVID 19 pneumonitis On 08/29/2020 patient seen in follow-up on general medical surgical floor. She is awake and alert, she is on room air, with pulse ox of 96%, breathing comfortably, she is oriented 3, appears to be in no acute distress. Does get short of breath with activity, occasional cough, no phlegm production. COVID test came back positive. Patient is on nebulized" otherwise, she is on azithromycin and Rocephin. Chest x-ray showed patchy basilar density, with some improvement in aeration. Afebrile On 08/30/2020 patient seen in follow-up on medical surgical floor, she is on day 2 of Remdesivir, feeling better, no fever, she is on room air, he stated that last night she felt very short of breath while walking to the bathroom, feeling better today. She is sitting up in the recliner, appears to be breathing comfortably at rest. Room air pulse ox is 94-95 percent. No nausea vomiting no diarrhea, today's labs have been reviewed, with blood cell count is 2.0, hemoglobin is 13.6, d-dimer is 1.09, inflammatory markers are trending down, LDH is down to 340 COPD down to 7.0 The patient is seen today 08/31/2020 in follow-up on the regular medical floor. She is awake and alert in no acute distress. Maintaining good O2 saturations in the mid 90s on room air. She's afebrile. Hemodynamically stable. LDH 406. C- reactive protein 3.0. She is receiving her third dose of Remdesivir. Continued on vitamin C, dexamethasone, Lovenox, Pepcid, zinc. Objective - Vital Signs Vital signs: Vital Signs Temp 97.9 F 08/31/20 07:00 Pulse 61 08/31/20 07:00 Resp 18 08/31/20 07:00 BP 124/79 08/31/20 07:00 Pulse Ox 96 08/31/20 07:00 Intake & Output 08/30/20 08/31/20 08/31/20 18:59 06:59 18:59 Intake Total 1160 Balance 1160 Intake: Oral 1160 Other: Voiding Method Toilet # Voids 3 1 # Bowel Movements 1 - Exam GENERAL EXAM: Alert, 59-year-old female patient, on room air, comfortable in no apparent distress. HEAD: Normocephalic/atraumatic. EYES: Normal reaction of pupils, equal size. Conjunctiva pink, sclera white. NOSE: Clear with pink turbinates. THROAT: No erythema or exudates. NECK: No masses, no JVD, no thyroid enlargement, no adenopathy. CHEST: No chest wall deformity. Symmetrical expansion. LUNGS: Equal air entry with no crackles, wheeze, rhonchi or dullness. CVS: Regular rate and rhythm, normal S1 and S2, no gallops, no murmurs, no rubs ABDOMEN: Soft, nontender. No hepatosplenomegaly, normal bowel sounds, no guarding or rigidity. EXTREMITIES: No clubbing, no edema, no cyanosis, 2+ pulses and upper and lower extremities. MUSCULOSKELETAL: Muscle strength and tone normal. SPINE: No scoliosis or deformity SKIN: No rashes CENTRAL NERVOUS SYSTEM: No focal deficits, tone is normal in all 4 extremities. PSYCHIATRIC: Alert and oriented -3. Appropriate affect. Intact judgment and insight. - Labs CBC & Chem 7: 08/31/20 05:49 08/29/20 05:30 Labs: Abnormal Lab Results - Last 24 Hours (Table) 08/31/20 08/31/20 08/31/20 Range/Units 05:49 05:49 05:49 Lymphocytes # 0.9 L (1.0-4.8) k/uL D-Dimer 0.76 H (<0.60) mg/L FEU Lactate Dehydrogenase 288 H (120-246) U/L C-Reactive Protein 2.1 H (0.0-0.8) mg/dL Microbiology - Last 24 Hours (Table) 08/27/20 14:20 Blood Culture - Preliminary Blood No Growth after 72 hours Assessment and Plan Assessment: #1. Acute dyspnea related to acute COVID 19 related pneumonia. Chest x-ray showed bilateral pneumonia #2. Lymphopenia, fatigue, cough, shortness of breath related to the above #3. Hypertension #4. GERD/reflux #6. Osteoarthritis #7. Hypothyroidism #8. Lifetime nonsmoker Plan: The patient was seen and evaluated by Dr. Metzger This is day 3 of Remdesivir Continue current medications Continue isolation cautions We will continue to follow I, the cosigning physician, performed a history & physical examination of the patient. Lungs sounds are clear, diminished. Maintaining good O2 saturations in the 90s on room air. I discussed the assessment and plan of care with my nurse practitioner, Rina Snowden. I attest to the above note as dictated by her.
[2020-08-31] MEDS: REMDESIVIR (EUA) 100 MG in SODIUM CHLORIDE 0.9% 250 ML IVPB SCH (14:49)
[2020-08-31] MEDS: MELATONIN 5 MG TABLET PO SCH (20:37)
[2020-08-31] MEDS: LATANOPROST 0.005% OPHTH DROPS 2.5 ML BTL BOTH EYES SCH (20:38)
[2020-09-01 06:39] LABS: Basophils % (A) 0 %; Eosinophils % (A) 0 %; HCT 41.1 % (34.0-46.0); Hypochromasia Slight; Lymphocytes # (A) 1.2 k/uL (1.0-4.8); Lymphocytes % (A) 16 %; MCH 29.5 pg (25.0-35.0); MCHC 31.7 g/dL (31.0-37.0); Mean Platelet Volume 7.8; Monocytes # (A) 0.3 k/uL (0-1.0); Monocytes % (A) 5 %; Neutrophils # (A) 5.5 k/uL (1.3-7.7); Neutrophils % (A) 76 %; Platelet Count 249 k/uL (150-450); RBC 4.42 m/uL (3.80-5.40); RDW 13.6 % (11.5-15.5); WBC 7.3 k/uL (3.8-10.6)
[2020-09-01 06:49] LABS: D-Dimer 0.49 mg/L FEU (<0.60)
[2020-09-01] MEDS: ZINC SULFATE 220 MG CAP PO SCH (08:35)
[2020-09-01] MEDS: PANTOPRAZOLE 40 MG TABLET PO SCH ×2 (08:35→16:36)
[2020-09-01] MEDS: ASCORBIC ACID 500 MG TAB PO SCH (08:35)
[2020-09-01] MEDS: METOPROLOL SUCCINATE (ER) 25 MG TAB.ER.24H PO SCH (08:35)
[2020-09-01] MEDS: CHOLECALCIFEROL 400 UNIT TAB PO SCH (08:35)
[2020-09-01] MEDS: LEVOTHYROXINE 50 MCG TAB PO SCH (08:35)
[2020-09-01] MEDS: dexAMETHasone 2 MG TAB PO SCH (08:35)
[2020-09-01] MEDS: ENOXAPARIN 40 MG/0.4 ML SYRINGE SQ SCH (08:35)
[2020-09-01] MEDS: buPROPion 100 MG TAB PO SCH ×2 (08:35→16:36)
[2020-09-01] MEDS: AZITHROMYCIN 500 MG TAB PO SCH (08:35)
[2020-09-01] MEDS: ONDANSETRON 4 MG/2 ML VIAL IVP PRN (08:39)
[2020-09-01 09:37] LABS: C Reactive Protein 0.6 mg/dL (0.0-0.8); Magnesium 2.1 mg/dL (1.5-2.4)
--- NOTE | 2020-09-01 12:53 | P.PN ---
Subjective Progress Note Date: 09/01/20 Principal diagnosis: CoVID 19 pneumonitis On 08/29/2020 patient seen in follow-up on general medical surgical floor. She is awake and alert, she is on room air, with pulse ox of 96%, breathing comfortably, she is oriented 3, appears to be in no acute distress. Does get short of breath with activity, occasional cough, no phlegm production. COVID test came back positive. Patient is on nebulized" otherwise, she is on azithromycin and Rocephin. Chest x-ray showed patchy basilar density, with some improvement in aeration. Afebrile On 08/30/2020 patient seen in follow-up on medical surgical floor, she is on day 2 of Remdesivir, feeling better, no fever, she is on room air, he stated that last night she felt very short of breath while walking to the bathroom, feeling better today. She is sitting up in the recliner, appears to be breathing comfortably at rest. Room air pulse ox is 94-95 percent. No nausea vomiting no diarrhea, today's labs have been reviewed, with blood cell count is 2.0, hemoglobin is 13.6, d-dimer is 1.09, inflammatory markers are trending down, LDH is down to 340 COPD down to 7.0 The patient is seen today 08/31/2020 in follow-up on the regular medical floor. She is awake and alert in no acute distress. Maintaining good O2 saturations in the mid 90s on room air. She's afebrile. Hemodynamically stable. LDH 406. C- reactive protein 3.0. She is receiving her third dose of Remdesivir. Continued on vitamin C, dexamethasone, Lovenox, Pepcid, zinc. The patient is seen today 09/01/2020 in follow-up on the regular medical floor. She is currently sitting up in a chair at the bedside. Awake and alert in no acute distress. She is maintaining O2 saturations in the 90s on room air. She's afebrile. Up ambulating in her room. She remains on dexamethasone, Lovenox, vitamin C, vitamin D, zinc. She is on her fourth day of Remdesivir today. Objective - Vital Signs Vital signs: Vital Signs Temp 98.1 F 09/01/20 07:00 Pulse 72 10/29/20 07:00 Resp 18 09/01/20 07:00 BP 138/82 09/01/20 07:00 Pulse Ox 94 L 09/01/20 07:00 Intake & Output 08/31/20 09/01/20 09/01/20 18:59 06:59 18:59 Intake Total 580 900 Balance 580 900 Intake: Oral 580 900 Other: Voiding Method Toilet # Voids 3 2 # Bowel Movements 1 - Exam GENERAL EXAM: Alert, 59-year-old female patient, on room air, comfortable in no apparent distress. HEAD: Normocephalic/atraumatic. EYES: Normal reaction of pupils, equal size. Conjunctiva pink, sclera white. NOSE: Clear with pink turbinates. THROAT: No erythema or exudates. NECK: No masses, no JVD, no thyroid enlargement, no adenopathy. CHEST: No chest wall deformity. Symmetrical expansion. LUNGS: Equal air entry with no crackles, wheeze, rhonchi or dullness. CVS: Regular rate and rhythm, normal S1 and S2, no gallops, no murmurs, no rubs ABDOMEN: Soft, nontender. No hepatosplenomegaly, normal bowel sounds, no guarding or rigidity. EXTREMITIES: No clubbing, no edema, no cyanosis, 2+ pulses and upper and lower extremities. MUSCULOSKELETAL: Muscle strength and tone normal. SPINE: No scoliosis or deformity SKIN: No rashes CENTRAL NERVOUS SYSTEM: No focal deficits, tone is normal in all 4 extremities. PSYCHIATRIC: Alert and oriented -3. Appropriate affect. Intact judgment and insight. - Labs CBC & Chem 7: 09/01/20 06:10 08/29/20 05:30 Labs: Abnormal Lab Results - Last 24 Hours (Table) 09/01/20 Range/Units 06:10 Lactate Dehydrogenase 326 H (120-246) U/L Microbiology - Last 24 Hours (Table) 08/27/20 14:20 Blood Culture - Preliminary Blood No Growth after 96 hours Assessment and Plan Assessment: #1. Acute dyspnea related to acute COVID 19 related pneumonia. Chest x-ray showed bilateral pneumonia #2. Lymphopenia, fatigue, cough, shortness of breath related to the above #3. Hypertension #4. GERD/reflux #6. Osteoarthritis #7. Hypothyroidism #8. Lifetime nonsmoker Plan: The patient was seen and evaluated by Dr. Metzger This is day 4 of Remdesivir Continue current medications Continue isolation cautions Probable discharge tomorrow We will continue to follow I, the cosigning physician, performed a history & physical examination of the patient. Lungs sounds are clear, diminished. Maintaining good O2 saturations in the 90s on room air. I discussed the assessment and plan of care with my nurse practitioner, Rina Snowden. I attest to the above note as dictated by her.
--- NOTE | 2020-09-01 13:44 | P.PN ---
Subjective Progress Note Date: 09/01/20 This is a 59-year-old female patient of mine with past medical history of gastroesophageal reflux disease, hiatal hernia, hypertension and hypertensive cardio vascular, osteoarthritis, recurrent depression, hypothyroidism, hormone replacement therapy under the care of Dr. Wright. The patient developed to have a significant fever for the last week or so associated with a dry cough and postnasal drainage, she came to the emergency department at [facility] yesterday with a temperature of 103, she stated that she did not have any sick contacts, patient denies any loss of taste loss of smell, she denies any abdominal pain, nausea or vomiting she did have diarrhea, she has no skin rash, patient had a chest x-ray in the ER that showed left lower lobe infiltrate she did have a mild leukocytosis she was started on IV antibiotic and was admitted to the hospital, covert 19 PCR was obtained and still pending at the time of dictations, Patient will be placed in droplet precaution and as well as contact isolation with eye protection filled the result of the test is back, pulmonary consultation was obtained, her repeated cessation from today showed the resolution of the left midlung infiltrate however there is a newer patchy infiltrate at the right lower lobe. 08/29: Patient is followed by pulmonary medicine. Covid 19 testing is positive. Patient has shortness of breath with activity. Pulse ox is 96% on room air, afebrile, heart rate 76 and blood pressure 133/80. Repeat CBC reveals WBC 3.9, hemoglobin 12.7, platelet count 161. Repeat chest x-ray reveals some impro vement in aeration. Lovenox, Remdesivir and Decadron, zinc and vitamin C initiated by pulmonary medicine. 08/30: No new complaints overnight. Patient has been afebrile, heart rate 69, blood pressure 127/81, pulse ox 94% on room air. [employer] is sinus rhythm Repeat blood work reveals WBC 2.0, hemoglobin 13.6, platelet count 171. D-dimer is improved at 1.09, fibrinogen is increased to 554, magnesium is 2.1. LDH is 340 which is improved, CK 160, C-reactive protein is much improved at 7. Patient complains of nausea for which Zofran is available. She is on day 2/5 of Remdesivir. 08/31: Patient had a good night. She continues to have some shortness of breath with activity and is cough as well. No sputum production. She is day #01/06 of Remdesivir. She has been afebrile, heart rate 66, blood pressure 132/79, pulse ox 94% on room air. CBC is normal. Other lab work is showing improvement with d-dimer down to 0.76, LDH 288, C-reactive protein 2.1. Anticipate discharge home on Saturday. 09/01: Shortness of breath continues to improve. She denies having any fever or chills. Repeat blood work reveals a normal CBC. D-dimer 0.49. Magnesium 2.1. LDH 326. CRP 0.6. She has been afebrile, heart rate 72, blood pressure 138/82, pulse ox 94% on room air. She is on day 02/06 of Remdesivir. Anticipate discharge home tomorrow. Objective - Vital Signs Vital signs: Vital Signs Temp 98.1 F 09/01/20 07:00 Pulse 72 09/01/20 07:00 Resp 18 09/01/20 07:00 BP 138/82 09/01/20 07:00 Pulse Ox 94 L 09/01/20 07:00 Intake & Output 08/31/20 09/01/20 09/01/20 18:59 06:59 18:59 Intake Total 580 900 Balance 580 900 Intake: Oral 580 900 Other: Voiding Method Toilet # Voids 3 2 # Bowel Movements 1 - Exam Review of Systems Constitutional: Denies chills, Reports fatigue, denies fever, Reports generalized malaise, Reports weakness, Denies anorexia Eyes: denies blurred vision, denies bulging eye, denies decreased vision, denies diplopia Ears, nose, mouth and throat: Denies dysphagia, Denies neck lump, Denies sore throat, Denies vertigo Cardiovascular: Reports decreased exercise tolerance, Reports dyspnea on exertion, Reports leg edema, Reports shortness of breath, Denies chest pain, Denies rapid heart beat, Denies syncope Respiratory: Reports congestion, Reports cough, denies cough with sputum, denies dyspnea, Reports sleep apnea, Reports snoring, Denies home oxygen, Denies wheezing Gastrointestinal: Denies abdominal pain, Denies bloating, Denies diarrhea, Denies dyspepsia, Denies heartburn, Denies loss of appetite, Denies melena, reports nausea, Denies vomiting Genitourinary: Denies dysuria, Denies nocturia Menstruation: Reports postmenopausal Musculoskeletal: Denies myalgias Musculoskeletal: absent: ankle pain, ankle stiffness, ankle swelling, elbow pain, elbow stiffness, elbow swelling, foot pain, foot stiffness, foot swelling, hand pain, hand stiffness, hand swelling, hip pain, hip stiffness, hip swelling, knee pain, knee stiffness, knee swelling, shoulder pain, shoulder stiffness, shoulder swelling, wrist pain, wrist stiffness, wrist swelling Integumentary: Denies pruritus, Denies rash Neurological: Denies numbness, Denies weakness Psychiatric: Reports anxiety, Reports depression, Denies sadness/tearfulness, Denies sleep disturbances, Denies suicidal ideation Endocrine: Reports fatigue Physical examination: HEENT: Head is atraumatic, normocephalic, pupils were equal round reactive to light and recommendation, extraocular muscle movement were intact. Patient is resting in bed and appears to be comfortable. Neck: Supple, no JVP or lymphadenopathy. Chest: Decreased breath sounds at the bases, few rhonchi, there is egophony at the right base no chest wall tenderness no intercostal retractions. Heart: First heart sound is depressed, second heart sound is normal, I could not appreciate a gallop or murmur. Abdomen: Soft obese nontender nondistended as well as sounds. No abdominal tenderness. Extremities: Chronic venous stasis with stasis dermatitis, and dorsalis pedis +2 bilaterally. Neurologic examination: Patient is awake alert and oriented 3, creatinine nerves III-12 appear grossly intact, muscle power 5 out of 5 in upper and lower extremities bilaterally, deep tendon reflexes were depressed bilaterally. - Labs CBC & Chem 7: 09/01/20 06:10 08/29/20 05:30 Labs: Abnormal Lab Results - Last 24 Hours (Table) 09/01/20 Range/Units 06:10 Lactate Dehydrogenase 326 H (120-246) U/L Microbiology - Last 24 Hours (Table) 08/27/20 14:20 Blood Culture - Preliminary Blood No Growth after 96 hours Assessment and Plan Plan: 1. Left and Right lower lobe pneumonia with acute Covid pneumonia (POA). Continue Lovenox, Remdesivir 4/5 and Decadron, zinc and vitamin C initiated by pulmonary medicine. Off Rocephin, Zithromax, continue oxygen support, continue with the nebulized treatment albuterol 2.5 mg nebulization 4 times every day, sputum culture, continue with contact and droplet precautions. 2. Leukopenia. Improved on repeat CBC. 3. Sirs likely related the right lower lobe pneumonia. Continue continue IV antibiotic, obtain sputum culture as well as blood culture. 4. Hypertension and hypertensive cardiovascular disease Continue metoprolol ER 25 mg orally once every day. 5. Gastroesophageal reflux disease. Protonix 40 mg twice daily. 6. Hypothyroidism. Continue levothyroxine 150 g daily. 7. Recurrent depression. Continue Wellbutrin 100 mg twice daily. 8. Hormone replacement therapy. We will continue progesterone 20 mg at bedtime. 9. DVT prophylaxis. Lovenox 40 mg subcu daily. 10. GI prophylaxis. Continue Pepcid. 11. Full code. Discharge plan: Home on Saturday Impression and plan of care have been directed as dictated by the signing physician. Avelina Worley nurse practitioner acting as scribe for signing physician.
[2020-09-01] MEDS: REMDESIVIR (EUA) 100 MG in SODIUM CHLORIDE 0.9% 250 ML IVPB SCH (15:28)
[2020-09-01] MEDS: MELATONIN 5 MG TABLET PO SCH (20:27)
[2020-09-01] MEDS: LATANOPROST 0.005% OPHTH DROPS 2.5 ML BTL BOTH EYES SCH (20:27)
[2020-09-02 07:18] LABS: Glucose,Whole Blood 94 mg/dL (75-99)
[2020-09-02] MEDS: ENOXAPARIN 40 MG/0.4 ML SYRINGE SQ SCH (07:31)
[2020-09-02] MEDS: METOPROLOL SUCCINATE (ER) 25 MG TAB.ER.24H PO SCH (07:31)
[2020-09-02] MEDS: ASCORBIC ACID 500 MG TAB PO SCH (07:31)
[2020-09-02] MEDS: ONDANSETRON 4 MG/2 ML VIAL IVP PRN (07:31)
[2020-09-02] MEDS: buPROPion 100 MG TAB PO SCH (07:32)
[2020-09-02] MEDS: PANTOPRAZOLE 40 MG TABLET PO SCH (07:32)
[2020-09-02] MEDS: ZINC SULFATE 220 MG CAP PO SCH (07:32)
[2020-09-02] MEDS: LEVOTHYROXINE 50 MCG TAB PO SCH (07:32)
[2020-09-02] MEDS: CHOLECALCIFEROL 400 UNIT TAB PO SCH (07:32)
[2020-09-02] MEDS: dexAMETHasone 2 MG TAB PO SCH (07:32)
--- NOTE | 2020-09-02 08:28 | XR ---
EXAMINATION TYPE: XR chest 1V portable DATE OF EXAM: 09/02/2020 COMPARISON: [facility] chest x-ray dated HISTORY: Covid pneumonia TECHNIQUE: Single frontal view of the chest is obtained. FINDINGS: Difficult to exclude retrocardiac density. Suspect some patchy density in the left upper l obe. Patient is rotated. Heart size is stable. There is no evident pneumothorax or pleural effusion. Improved aeration at the right lung base. IMPRESSION: There is some improvement in aeration.
[2020-09-02 11:08] LABS: Glucose,Whole Blood 99 mg/dL (75-99)
--- NOTE | 2020-09-02 12:53 | P.DS ---
Providers Date of admission: 08/27/20 15:30 Expected date of discharge: 09/02/20 Attending physician: Rajan Calderón Consults: 08/27/20 15:31 Consult Physician Routine Consulting Provider: Juaquin Bentley Consult Reason/Comments: Pneumonia Do you want consulting provider notified?: Yes Primary care physician: Rajan Caldeórn Hospital Course: This is a 59-year-old female patient of mine with past medical history of gastroesophageal reflux disease, hiatal hernia, hypertension and hypertensive cardio vascular, osteoarthritis, recurrent depression, hypothyroidism, hormone replacement therapy under the care of Dr. Wright. The patient developed to have a significant fever for the last week or so associated with a dry cough and postnasal drainage, she came to the emergency department at [facility] yesterday with a temperature of 103, she stated that she did not have any sick contacts, patient denies any loss of taste loss of smell, she denies any abdominal pain, nausea or vomiting she did have diarrhea, she has no skin rash, patient had a chest x-ray in the ER that showed left lower lobe infiltrate she did have a mild leukocytosis she was started on IV antibiotic and was admitted to the hospital, covert 19 PCR was obtained and still pending at the time of dictations, Patient will be placed in droplet precaution and as well as contact isolation with eye protection filled the result of the test is back, pulmonary consultation was obtained, her repeated cessation from today showed the resolution of the left midlung infiltrate however there is a newer patchy infiltrate at the right lower lobe. 08/29: Patient is followed by pulmonary medicine. Covid 19 testing is positive. Patient has shortness of breath with activity. Pulse ox is 96% on room air, afebrile, heart rate 76 and blood pressure 133/80. Repeat CBC reveals WBC 3.9, hemoglobin 12.7, platelet count 161. Repeat chest x-ray reveals some improvement in aeration. Lovenox, Remdesivir and Decadron, zinc and vitamin C initiated by pulmonary medicine. 08/30: No new complaints overnight. Patient has been afebrile, heart rate 69, blood pressure 127/81, pulse ox 94% on room air. 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 D-dimer is improved at 1.09, fibrinogen is increased to 554, magnesium is 2.1. LDH is 340 which is improved, CK 160, C-reactive protein is much improved at 7. Patient complains of nausea for which Zofran is available. She is on day 2/5 of Remdesivir. 08/31: Patient had a good night. She continues to have some shortness of breath with activity and is cough as well. No sputum production. She is day #3/5 of Remdesivir. She has been afebrile, heart rate 66, blood pressure 132/79, pulse ox 94% on room air. CBC is normal. Other lab work is showing improvement with d-dimer down to 0.76, LDH 288, C-reactive protein 2.1. Anticipate discharge home on Saturday. 09/01: Shortness of breath continues to improve. She denies having any fever or chills. Repeat blood work reveals a normal CBC. D-dimer 0.49. Magnesium 2.1. LDH 326. CRP 0.6. She has been afebrile, heart rate 72, blood pressure 138/82, pulse ox 94% on room air. She is on day 4/5 of Remdesivir. Anticipate discharge home tomorrow. 09/02: Patient is to complete course of Remdesivir today. She continues to be breathing well. Pulse ox is 97% on room air. Heart rate 59, blood pressure 142/79, afebrile. Patient will be discharged home later today once she completes her last dose of Remdesivir. Discharge diagnoses: 1. Left and Right lower lobe pneumonia with acute Covid pneumonia (POA). 2. Leukopenia secondary to Covid 19. 3. Sepsis secondary to right lower lobe pneumonia. 4. Hypertension and hypertensive cardiovascular disease 5. Gastroesophageal reflux disease. 6. Hypothyroidism. 7. Recurrent depression. 8. Hormone replacement therapy. Discharge plan: Home on Saturday Impression and plan of care have been directed as dictated by the signing physician. Avelina Worley nurse practitioner acting as scribe for signing physician. Patient Condition at Discharge: Good Plan - Discharge Summary Discharge Rx Participant: Yes New Discharge Prescriptions: New Zinc Sulfate [Orazinc] 220 mg PO DAILY cap Ascorbic Acid [Vitamin C] 1,000 mg PO DAILY tab Cholecalciferol [Vitamin D3] 400 unit PO DAILY tab Dexamethasone [Decadron] 4 mg PO DAILY #7 tablet Azithromycin [Zithromax] 500 mg PO DAILY 3 Days #3 tab Continue buPROPion HCL [Bupropion HCl] 100 mg PO BID Progesterone, Micronized [Progesterone] 200 mg PO HS Metoprolol Succinate (ER) [Toprol XL] 25 mg PO DAILY Latanoprost Ophth [Xalatan 0.005%] 1 drop BOTH EYES HS Levothyroxine Sodium [Synthroid] 150 mcg PO DAILY Ibuprofen [Motrin] 800 mg PO Q12H PRN PRN Reason: Pain Hydrocortisone Cream [Hydrocortisone 2.5% Cream] 1 applic TOPICAL BID PRN PRN Reason: Rash ALPRAZolam [Xanax] 0.25 mg PO DAILY PRN PRN Reason: Anxiety Discharge Medication List buPROPion HCL [Bupropion HCl] 100 mg PO BID 11/19/16 [History] Progesterone, Micronized [Progesterone] 200 mg PO HS 03/29/18 [History] Latanoprost Ophth [Xalatan 0.005%] 1 drop BOTH EYES HS 09/01/19 [History] Metoprolol Succinate (ER) [Toprol XL] 25 mg PO DAILY 09/01/19 [History] Levothyroxine Sodium [Synthroid] 150 mcg PO DAILY 09/22/19 [History] ALPRAZolam [Xanax] 0.25 mg PO DAILY PRN 08/27/20 [History] Hydrocortisone Cream [Hydrocortisone 2.5% Cream] 1 applic TOPICAL BID PRN 08/27/20 [History] Ibuprofen [Motrin] 800 mg PO Q12H PRN 08/27/20 [History] Ascorbic Acid [Vitamin C] 1,000 mg PO DAILY tab 09/02/20 [Rx] Azithromycin [Zithromax] 500 mg PO DAILY 3 Days #3 tab 09/02/20 [Rx] Cholecalciferol [Vitamin D3] 400 unit PO DAILY tab 09/02/20 [Rx] Dexamethasone [Decadron] 4 mg PO DAILY #7 tablet 09/02/20 [Rx] Zinc Sulfate [Orazinc] 220 mg PO DAILY cap 09/02/20 [Rx] Follow up Appointment(s)/Referral(s): Rajan Calderón MD [Primary Care Provider] - 2 Weeks (office closed. please call to make appt) Roland Metzger MD [STAFF PHYSICIAN] - 10/12/20 3:15 pm (with Rina Snowden.) Patient Instructions/Handouts: Viral Pneumonia (DC) Activity/Diet/Wound Care/Special Instructions: Quarantine for 2 weeks. Discharge Disposition: HOME SELF-CARE
--- NOTE | 2020-09-02 13:04 | P.PN ---
Subjective Progress Note Date: 09/02/20 Principal diagnosis: Bilateral pneumonia, rule out COVID On 08/29/2020 patient seen in follow-up on general medical surgical floor. She is awake and alert, she is on room air, with pulse ox of 96%, breathing comfortably, she is oriented 3, appears to be in no acute distress. Does get short of breath with activity, occasional cough, no phlegm production. COVID test came back positive. Patient is on nebulized" otherwise, she is on azithromycin and Rocephin. Chest x-ray showed patchy basilar density, with some improvement in aeration. Afebrile On 08/30/2020 patient seen in follow-up on medical surgical floor, she is on day 2 of Remdesivir, feeling better, no fever, she is on room air, he stated that last night she felt very short of breath while walking to the bathroom, feeling better today. She is sitting up in the recliner, appears to be breathing comfortably at rest. Room air pulse ox is 94-95 percent. No nausea vomiting no diarrhea, today's labs have been reviewed, with blood cell count is 2.0, hemoglobin is 13.6, d-dimer is 1.09, inflammatory markers are trending down, LDH is down to 340 COPD down to 7.0 On 09/02/2020 patient seen in follow-up on the medical surgical floor, to improve, coughing less, less short of breath, she sitting up in the recliner right now, she's been tolerating ambulation, room air pulse ox 97%, hemodynamically stable, afebrile. Breathing comfortably. Inflammatory markers improving. Lymphopenia resolved. She is on oral Decadron, she is on lactulose of Lovenox, she is completing Remdesivir course, doing well Objective - Vital Signs Vital signs: Vital Signs Temp 97.7 F 09/02/20 07:00 Pulse 59 L 09/02/20 07:00 Resp 15 09/02/20 07:00 BP 142/79 09/02/20 07:00 Pulse Ox 97 09/02/20 07:00 Intake & Output 09/01/20 09/02/20 09/02/20 18:59 06:59 18:59 Output Total 400 Balance -400 Output: Urine 400 Other: Voiding Method Toilet # Voids 3 1 # Bowel Movements 1 - Exam GENERAL EXAM: Alert, 59-year-old white female on room air, with a pulse ox of 97% comfortable in no apparent distress. HEAD: Normocephalic/atraumatic. EYES: Normal reaction of pupils, equal size. Conjunctiva pink, sclera white. NOSE: Clear with pink turbinates. THROAT: No erythema or exudates. NECK: No masses, no JVD, no thyroid enlargement, no adenopathy. CHEST: No chest wall deformity. Symmetrical expansion. LUNGS: Equal air entry with no crackles, wheeze, rhonchi or dullness. CVS: Regular rate and rhythm, normal S1 and S2, no gallops, no murmurs, no rubs ABDOMEN: Soft, nontender. No hepatosplenomegaly, normal bowel sounds, no guarding or rigidity. EXTREMITIES: No clubbing, no edema, no cyanosis, 2+ pulses and upper and lower extremities. MUSCULOSKELETAL: Muscle strength and tone normal. SPINE: No scoliosis or deformity SKIN: No rashes CENTRAL NERVOUS SYSTEM: Alert and oriented -3. No focal deficits, tone is normal in all 4 extremities. PSYCHIATRIC: Alert and oriented -3. Appropriate affect. Intact judgment and insight. - Labs CBC & Chem 7: 09/01/20 06:10 08/29/20 05:30 Labs: Microbiology - Last 24 Hours (Table) 08/27/20 14:20 Blood Culture - Preliminary Blood No Growth after 120 hours Assessment and Plan Plan: Assessment: #1. Acute dyspnea related to acute COVID 19 related pneumonia. Chest x-ray showed bilateral pneumonia #2. Lymphopenia, fatigue, cough, shortness of breath related to the above, improved #3. Hypertension #4. GERD/reflux #6. Osteoarthritis #7. Hypothyroidism #8. Lifetime nonsmoker Plan: Patient receiving last dose of Remdesivir, hemodynamically stable, afebrile, breathing easier, no cough, tolerating ambulation, no acute events overnight, patient can be considered for discharge home today. Inflammatory markers have improved, overall patient is feeling better, she can follow up with Dr. Metzger in the office in 6 weeks I performed a history & physical examination of the patient and discussed their management with my nurse practitioner, Patricia Harmon. I reviewed the nurse practitioner's note and agree with the documented findings and plan of care. Lung sounds are positive for diminished breath sounds. The findings and the impression was discussed with the patient. I attest to the documentation by the nurse practitioner. Time with Patient: Less than 30
[2020-09-02 13:19] VITALS: BMI 45.4
[2020-09-02] MEDS: REMDESIVIR (EUA) 100 MG in SODIUM CHLORIDE 0.9% 250 ML IVPB SCH (14:18)
[2020-09-02 14:53] VITALS: BP 115/77; PULSE 67; RESP 16; TEMP 97.2
== END 2020-09-02 15:53 | disposition home or self-care (01) | DRG 871 ==
LOC: EC 13:48 → 4SSUR 15:30
PROVIDERS: ADMIT Internal Medicine; ATTEND Internal Medicine
DX: A41.89 Other specified sepsis (principal); J12.89 Other viral pneumonia; U07.1 COVID-19; F33.9 Major depressive disorder, recurrent, unspecified; D72.810 Lymphocytopenia; E89.0 Postprocedural hypothyroidism; E78.5 Hyperlipidemia, unspecified; I11.9 Hypertensive heart disease without heart failure; K21.9 Gastro-esophageal reflux disease without esophagitis; K44.9 Diaphragmatic hernia without obstruction or gangrene; F41.9 Anxiety disorder, unspecified; M19.90 Unspecified osteoarthritis, unspecified site; Z79.82 Long term (current) use of aspirin; Z79.890 Hormone replacement therapy; Z79.899 Other long term (current) drug therapy; Z82.49 Family history of ischemic heart disease and other diseases of the circulatory system; Z83.3 Family history of diabetes mellitus; Z81.8 Family history of other mental and behavioral disorders; Z90.49 Acquired absence of other specified parts of digestive tract; Z96.653 Presence of artificial knee joint, bilateral
CPT/HCPCS: 36415; 71045; 71046; 80053; 81001; 82550; 83605; 83615; 83735; 85025; 85379; 85384; 86140; 87040; 87502; 93005; 96361; 96365; 96375; 99284

== ENCOUNTER → 2020-09-16 | Outpatient (CLI) | payer BC ==
--- NOTE | 2020-09-16 14:19 | XR ---
EXAMINATION TYPE: XR chest 2V DATE OF EXAM: 09/16/2020 COMPARISON: 09/02/2020 TECHNIQUE: PA and lateral views submitted. HISTORY: Cough FINDINGS: The lungs are clear and there is no pneumothorax, pleural effusion, or focal pneumonia. Heart size normal. No overt failure. Biapical pleural thickening. Hypertrophic and degenerative change of the sp ine. Surgical clips in the abdomen noted. IMPRESSION: 1. No acute process.
== END | disposition home or self-care (01) ==
LOC: RADXRMAIN 13:48
PROVIDERS: ATTEND Internal Medicine
DX: J18.9 Pneumonia, unspecified organism (principal)
CPT/HCPCS: 71046

== ENCOUNTER → 2020-10-05 | Outpatient (CLI) | payer BC ==
--- NOTE | 2020-10-05 14:52 | US ---
EXAMINATION TYPE: US venous doppler duplex LE DATE OF EXAM: 10/05/2020 2:05 PM COMPARISON: NONE CLINICAL HISTORY: L03.119 Lower extremity Cellulitis. SIDE PERFORMED: Bilateral TECHNIQUE: The lower extremity deep venous system is examined utilizing real time linear array sonog alycia with graded compression, doppler sonography and color-flow sonography. VESSELS IMAGED: Common Femoral Vein Deep Femoral Vein Greater Saphenous Vein * Femoral Vein Popliteal Vein Small Saphenous Vein * Proximal Calf Veins (* superficial vessels) Morbidly obese patient, technically difficult limited study. The left and right common femoral, superficial femoral, popliteal veins show color flow. Compressibil ity within normal limits, no abnormal luminal echoes are evident. Right Leg: Appears negative for DVT Left Leg: Appears negative for DVT IMPRESSION: No evident deep venous thrombosis within the limitations of the exam.
== END | disposition home or self-care (01) ==
LOC: RADUSWWP 13:24
PROVIDERS: ATTEND Internal Medicine
DX: L03.119 Cellulitis of unspecified part of limb (principal)
CPT/HCPCS: 93970

== ENCOUNTER → 2021-08-24 | Outpatient (CLI) | payer BC ==
--- NOTE | 2021-08-28 11:01 | MM ---
Reason for exam: screening (asymptomatic). Last mammogram was performed 1 year and 1 month ago. History: Patient is postmenopausal and had first child at age 36. Family history of breast cancer in maternal aunt at age 55. 2 benign excisional biopsies of the left breast, 1995. Took hormonal contraceptives for 7 years beginning at age 28. Taking progesterone for 9 years. Physical Findings: A clinical breast exam by your physician is recommended on an annual basis and results should be correlated with mammographic findings. MG Screening Mammo w CAD Bilateral CC, MLO, and XCCL view(s) were taken. Prior study comparison: July 20, 2020, bilateral MG screening mammo w CAD. May 04, 2019, bilateral MG screening mammo w CAD. There are scattered fibroglandular densities. There is chronic nodularity in the right breast. No significant changes when compared with prior studies. ASSESSMENT: Benign, BI-RAD 2 RECOMMENDATION: Routine screening mammogram of both breasts in 1 year.
== END | disposition home or self-care (01) ==
LOC: RADMAMWWP 11:09
PROVIDERS: ATTEND Internal Medicine
DX: Z12.31 Encounter for screening mammogram for malignant neoplasm of breast (principal); Z80.3 Family history of malignant neoplasm of breast
CPT/HCPCS: 77067

== ENCOUNTER → 2022-02-19 | Outpatient (CLI) | payer BC ==
--- NOTE | 2022-02-19 10:27 | BD ---
EXAMINATION TYPE: Axial Bone Density DATE OF EXAM: 02/19/2022 COMPARISON: NONE CLINICAL HISTORY: 61 years year old Female. ICD-10 CODE: M81.0 Age-related osteoporosis without curr ent pat Height: 5 FT 6 IN Weight: 292 FRAX RISK QUESTIONS: Alcohol (3 or more units per day): NO Family History (Parent hip fracture): NO Glucocorticoids (More than 3mos): NO (Ex: prednisone, prednisolone, methylprednisolone, dexamethasone, and hydrocortisone). History of Fracture in Adulthood: YES Secondary Osteoporosis: 1. Type 1 Diabetes: NO 2. Hyperthyroidism: NO 3. Menopause before 45: NO 4. Malnutrition: NO 5. Chronic liver disease: NO Rheumatoid Arthritis: NO Current Tobacco Use: NO RISK FACTORS HISTORY OF: Surgery to Spine/Hip(right/left)/Wrist (right/left): NO Family History of Osteoporosis: NO Active: NO Diet low in dairy products/other sources of calcium: NO Postmenopausal woman: YES Take estrogen and/or progesterone medications: YES How long: APPROX 3 YEARS Lost more than 2 inches in height since high school: NO Frequent falls: NO Poor Health: GOOD Hyperparathyroidism: NO Adrenal Insufficiency: NO MEDICATIONS: Thyroid Medications: YES Which medication: SYNTHROID How Long: SINCE 1975 Additional Medications: SYNTHROID, PROGESTERONE, ESTROGEN, LOSARTAN, WELLBUTRIN, METOPROLOL, Additional History: EXAM MEASUREMENTS: Bone mineral densitometry was performed using the [employer] System. Bone mineral density as measured about the Lumbar spine is: ----- L1-L4(G/cm2): 1.854 T Score Values are as follows: ----- L1: 3.5 ----- L2: 5.3 ----- L3: 6.7 ----- L4: 6.6 ----- L1-L4: 5.6 Bone mineral density has: INCREASED 5.6 % since study of: 2019 Bone mineral density about the R hip (g/cm2): 1.137 Bone mineral density about the L hip (g/cm2): 1.139 T Score values are as follows: -----R Neck: 0.7 -----L Neck: 0.7 -----R Total: 1.3 -----L Total: 1.0 Bone mineral density has: DECREASED -1.8 % since study of: 2019 FRAX%s: The graph provided illustrates a 8.2 % chance for a major osteoporotic fx and a 0.1 % chance for the hips probability for fx in 10 years time. IMPRESSION: No evidence for osteoporosis or osteopenia NOTE: T-SCORE=SD OF THE YOUNG ADULT MEAN.
== END | disposition home or self-care (01) ==
LOC: RADBDWWP 07:05
PROVIDERS: ATTEND Internal Medicine
DX: M81.0 Age-related osteoporosis without current pathological fracture (principal)
CPT/HCPCS: 77080

== ENCOUNTER → 2022-08-27 | Outpatient (CLI) | payer BC ==
--- NOTE | 2022-08-28 08:57 | MM ---
Reason for Exam: Screening (asymptomatic). Last screening mammogram was performed 12 month(s) ago. Patient History: Menarche at age 9. First Full-Term at age 36. Late child-bearing (after 30). Postmenopausal. Currently using Progesterone, for 9 years. Hormonal Contraceptives for 7 years from age 28 until age 35. 1995, Benign Excisional Biopsy on the left side. 1995, Benign Excisional Biopsy on the left side. Maternal aunt had breast cancer, age 55. Risk Values: Veena 5 year model risk: 3.4%. NCI Lifetime model risk: 15.5%. Prior Study Comparison: 05/04/2019 Bilateral Screening Mammogram, [facility]. 07/20/2020 Bilateral Screening Mammogram, [facility]. 08/24/2021 Bilateral Screening Mammogram, [facility]. Tissue Density: There are scattered fibroglandular densities. Findings: Analyzed By CAD. There is no suspicious group of microcalcifications or new suspicious mass in either breast. Stable chronic nodularity in the right breast. No significant change from prior exams. Overall Assessment: Benign, BI-RAD 2 Management: Screening Mammogram of both breasts in 1 year. A clinical breast exam by your physician is recommended on an annual basis and results should be correlated with mammographic findings. Electronically signed and approved by: Karlos Doan D.O.
== END | disposition home or self-care (01) ==
LOC: RADMAMWWP 09:19
PROVIDERS: ATTEND Internal Medicine
DX: Z12.31 Encounter for screening mammogram for malignant neoplasm of breast (principal); Z78.0 Asymptomatic menopausal state; Z80.3 Family history of malignant neoplasm of breast
CPT/HCPCS: 77063; 77067

== ENCOUNTER → 2023-11-11 | Outpatient (CLI) | payer BC ==
--- NOTE | 2023-11-11 17:41 | MM ---
Reason for Exam: Screening (asymptomatic). Last mammogram was performed 1 year(s) and 3 month(s) ago. Patient History: Menarche at age 9. First Full-Term at age 36. Late child-bearing (after 30). Postmenopausal. Currently using Progesterone, for 9 years. Hormonal Contraceptives for 7 years from age 28 until age 35. 1995, Benign Excisional Biopsy on the left side. 1995, Benign Excisional Biopsy on the left side. Maternal aunt had breast cancer, age 55. Maternal aunt had ovarian cancer. Risk Values: Veena 5 year model risk: 3.6%. NCI Lifetime model risk: 14.6%. Prior Study Comparison: 07/20/2020 Bilateral Screening Mammogram, [facility]. 08/24/2021 Bilateral Screening Mammogram, [facility]. 08/27/2022 Bilateral MG 3D screening mammo w/cad, [facility]. Tissue Density: There are scattered fibroglandular densities. Findings: Analyzed By CAD. Unchanged focal asymmetry right upper outer quadrant. There is no suspicious group of microcalcifications or new suspicious mass in either breast. Overall Assessment: Benign, BI-RAD 2 Management: Diagnostic Breast Ultrasound of the right breast. For the patient's reported pain. [facility] will attempt to contact patient to return for supplemental views and ultrasound if indicated. Electronically signed and approved by: Ashley Galaviz M.D. Radiologist
== END | disposition home or self-care (01) ==
LOC: RADMAMWWP 11:35
PROVIDERS: ATTEND Internal Medicine
DX: Z12.31 Encounter for screening mammogram for malignant neoplasm of breast (principal); Z78.0 Asymptomatic menopausal state; Z80.3 Family history of malignant neoplasm of breast
CPT/HCPCS: 77063; 77067

== ENCOUNTER 2024-01-14 11:04 | Observation (INO) | payer BC ==
[2024-01-14 11:27] LABS: Basophils # (A) 0.1 k/uL (0-0.2); Basophils % (A) 1 %; Eosinophils # (A) 0.2 k/uL (0-0.7); Eosinophils % (A) 2 %; HCT 42.5 % (34.0-46.0); HGB 14.1 gm/dL (11.4-16.0); Lymphocytes # (A) 2.8 k/uL (1.0-4.8); Lymphocytes % (A) 33 %; MCH 30.7 pg (25.0-35.0); MCHC 33.2 g/dL (31.0-37.0); MCV 92.4 fL (80.0-100.0); Mean Platelet Volume 7.4; Monocytes # (A) 0.4 k/uL (0-1.0); Monocytes % (A) 4 %; Neutrophils # (A) 4.8 k/uL (1.3-7.7); Neutrophils % (A) 58 %; Platelet Count 306 k/uL (150-450); RDW 14.7 % (11.5-15.5); WBC 8.3 k/uL (3.8-10.6)
[2024-01-14 11:48] LABS: ALT 33 U/L (4-34); AST 30 U/L (14-36); African American GFR (CKD) >90 (>60 ml/min/1.73 sqM); Albumin 3.9 g/dL (3.5-5.0); Alkaline Phosphatase 124 U/L (38-126); Anion Gap 8 mmol/L; Blood Urea Nitrogen 16 mg/dL (7-17); Calcium 9.3 mg/dL (8.4-10.2); Carbon Dioxide 25 mmol/L (22-30); Chloride 109 mmol/L (98-107); Glucose 123 mg/dL (74-99); Non-African American GFR(CKD) 78 (>60 ml/min/1.73 sqM); Potassium 3.9 mmol/L (3.5-5.1); Sodium 142 mmol/L (137-145); Total Bilirubin 0.6 mg/dL (0.2-1.3); Total Protein 6.9 g/dL (6.3-8.2)
[2024-01-14 11:55] LABS: NT-Pro-B-Type Natriuretic Pept 68 pg/mL
--- NOTE | 2024-01-14 12:09 | US ---
EXAMINATION TYPE: US venous doppler duplex LE BI DATE OF EXAM: 01/14/2024 11:10 AM COMPARISON: 10/05/2020 CLINICAL INDICATION: Female, 63 years old with history of edema, eval for DVT; No hx of DVT. Patient does not take blood thinners. SIDE PERFORMED: Bilateral TECHNIQUE: The lower extremity deep venous system is examined utilizing real time linear array sonog alycia with graded compression, doppler sonography and color-flow sonography. 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 Right Leg: No evidence of DVT. Left Leg: No evidence of DVT. Mild bilateral calf edema noted. IMPRESSION: No sonographic evidence for DVT within the bilateral lower extremities imaged from the groin to the u pper calves.
[2024-01-14] MEDS ORDERED: VANCOMYCIN IV PER PHARMACY 1 EACH MISC MISCELLANE PRN (12:11)
--- NOTE | 2024-01-14 13:00 | XR ---
EXAMINATION TYPE: XR chest 1V portable DATE OF EXAM: 01/14/2024 Comparison: 09/16/2020 Clinical History: 63-year-old female with cough Findings: Heart normal size. Aorta and pulmonary vasculature within normal limits. Hazy lung densities likely r elated to overlying soft tissue. No consolidation or pleural effusion. Impression: No acute cardiopulmonary process.
--- NOTE | 2024-01-14 13:04 | XR ---
EXAMINATION TYPE: XR tibia fibula bilateral DATE OF EXAM: 01/14/2024 COMPARISON: NONE HISTORY: 63-year-old female, evaluate for osteomyelitis, redness and swelling TECHNIQUE: 2 views each side FINDINGS: Diffuse subcutaneous soft tissue reticulation/edema. Bilateral total knee arthroplasties a re demonstrated. No periostitis or osteophytosis. IMPRESSION: Diffuse subcutaneous soft tissue swelling of the legs. Bilateral total knee arthroplasties. No underl azeb acute osseous abnormality seen. No bony erosions to suggest a contiguous osteomyelitis at this t zita.
[2024-01-14] MEDS ORDERED: NALOXONE 0.4 MG/ML 1 ML VIAL IV PRN (13:16)
--- NOTE | 2024-01-14 13:19 | ED ---
General Adult HPI - General Chief complaint: Extremity Problem,Nontraumatic Stated complaint: infection Time Seen by Provider: 01/14/24 12:00 Source: patient, RN notes reviewed, old records reviewed Mode of arrival: ambulatory Limitations: no limitations - History of Present Illness Initial comments: Patient is a 63-year-old female who presents emergency department complaining of lower extremity edema with venous ulcer infection. I was notified by Dr. Calderón who recommended that the patient be admitted under his service with consults to vascular as well as infectious disease. Once restarted on IV antibiotics as patient has had refractory infectious-like symptoms with worsening swelling of her legs. Patient has no history of CHF. Has no other acute complaints at this time. Presents for further evaluation and admission. Denies fevers, chills, cough. Neurovascular intact otherwise. Recently finished a course of outpatient antibiotics.Workup started while patient was in triage. - Related Data Home Medications Medication Instructions Recorded Confirmed buPROPion HCL [Bupropion HCl] 100 mg PO TID 11/19/16 01/14/24 Progesterone, Micronized 200 mg PO HS 03/29/18 01/14/24 [Progesterone] Latanoprost Ophth [Xalatan 0.005%] 1 drop BOTH EYES HS 09/01/19 01/14/24 Metoprolol Succinate (ER) [Toprol 12.5 mg PO DAILY 09/01/19 01/14/24 XL] Levothyroxine Sodium [Synthroid] 150 mcg PO DAILY 09/22/19 01/14/24 ALPRAZolam [Xanax] 0.25 mg PO DAILY PRN 08/27/20 01/14/24 Acetaminophen Tab [Tylenol] 650 mg PO Q6H PRN 01/14/24 01/14/24 Amoxicillin 2,000 mg PO ONCE PRN 01/14/24 01/14/24 Atorvastatin [Lipitor] 20 mg PO HS 01/14/24 01/14/24 Cholecalciferol [Vitamin D3 (125 125 mcg PO DAILY 01/14/24 01/14/24 Mcg = 5000 Iu)] Furosemide [Lasix] 40 mg PO BID PRN 01/14/24 01/14/24 Hydrocortisone Oint 1 applic TOPICAL BID 01/14/24 01/14/24 [Hydrocortisone 2.5% Oint] Ibuprofen [Motrin Ib] 600 mg PO Q8H PRN 01/14/24 01/14/24 Magnesium(Unknown Dose) 1 tab PO HS 01/14/24 01/14/24 Multivitamins, Thera [Multivitamin 1 tab PO DAILY 01/14/24 01/14/24 (formulary)] Omeprazole 40 mg PO DAILY PRN 01/14/24 01/14/24 Vitamin B Complex 1 cap PO DAILY 01/14/24 01/14/24 Allergies Allergy/AdvReac Type Severity Reaction Status Date / Time No Known Allergies Allergy Verified 01/14/24 13:13 Review of Systems ROS Statement: Those systems with pertinent positive or pertinent negative responses have been documented in the HPI. Review of Systems: CONST: Denies fever EYES: Denies blurry vision ENT: Denies nasal congestion C/V: Denies Chest pain RESP: Denies shortness of breath GI: Denies abdominal pain : Denies dysuria SKIN: Endorses chronic venous stasis ulcers and erythema. Worsening erythema. MSK: Denies joint pain. NEURO: Denies headache ROS Other: All systems not noted in ROS Statement are negative. Past Medical History Past Medical History: GERD/Reflux, Hyperlipidemia, Hypertension, Osteoarthritis (OA), Thyroid Disorder Additional Past Medical History / Comment(s): hiatal hernia, thyroid goiter History of Any Multi-Drug Resistant Organisms: None Reported Past Surgical History: Section, Cholecystectomy, Joint Replacement Additional Past Surgical History / Comment(s): thyroidectomy, jaison knee Past Anesthesia/Blood Transfusion Reactions: Postoperative Nausea & Vomiting (PONV) Past Psychological History: No Psychological Hx Reported, Depression Smoking Status: Never smoker Past Alcohol Use History: None Reported Past Drug Use History: None Reported - Past Family History Mother Family Medical History: No Reported History Additional Family Medical History / Comment(s): Mother is alive with history of coronary artery disease and CABG 4 vessel at age 75. Father Family Medical History: Diabetes Mellitus Additional Family Medical History / Comment(s): Father is secondary to diabetes. Sister(s) Additional Family Medical History / Comment(s): Patient has 1 sister with no major medical problems. Patient does not have any brothers. Patient has 2 daughters with anxiety. No sons. General Exam - General Exam Comments Initial Comments: General: Appears in no acute distress. HEAD: Normal with no signs of head trauma. EYES: PERRLA, EOMI, conjunctiva normal, no discharge. ENT: Hearing grossly intact, normal oropharynx. RESPIRATORY: Clear breath sounds bilaterally. No wheezes, rales, or rhonchi. C/V: Regular rate and rhythm. S1 and S2 auscultated, no edema, peripheral pulses 2+ and intact throughout ABD: Abd is soft, nontender, nondistended EXT: Normal range of motion, no obvious deformity SKIN: Bilateral lower extremity erythema and edema with venous stasis ulcers. NEURO: Alert and oriented x 4. Limitations: no limitations Course Vital Signs 01/14/24 11:05 Temperature 97.9 F Pulse Rate 92 Respiratory 16 Rate Blood Pressure 186/84 O2 Sat by Pulse 98 Oximetry Medical Decision Making - Medical Decision Making Was pt. sent in by a medical professional or institution (, PA, TECHNICAL SUPPORT REPRESENTATIVE, urgent care, hospital, or alf...) When possible be specific @ -Sent by Dr. Calderón for admission. Did you speak to anyone other than the patient for history (EMS, parent, family, police, friend...)? What history was obtained from this source @ -No Did you review nursing and triage notes (agree or disagree)? Why? @ -I reviewed and agree with nursing and triage notes Were old charts reviewed (outside hosp., previous admission, EMS record, old EKG, old radiological studies, urgent care reports/EKG's, alf records)? Report findings @ -Old charts reviewed Differential Diagnosis (chest pain, altered mental status, abdominal pain women, abdominal pain men, vaginal bleeding, weakness, fever, dyspnea, syncope, headache, dizziness, GI bleed, back pain, seizure, CVA, palpatations, mental health, musculoskeletal)? @ -Cellulitis, abscess, chronic wounds, DVT, this list is not all inclusive. EKG interpreted by me (3pts min.). @ -As above X-rays interpreted by me (1pt min.). @ -Chest x-ray shows no evidence of cardiopulmonary process. CT interpreted by me (1pt min.). @ -None done U/S interpreted by me (1pt. min.). @ -Bilateral lower extremity ultrasound negative for DVT What testing was considered but not performed or refused? (CT, X-rays, U/S, labs)? Why? @ -None What meds were considered but not given or refused? Why? @ -None Did you discuss the management of the patient with other professionals (professionals i.e. Dr., PA, TECHNICAL SUPPORT REPRESENTATIVE, lab, RT, psych nurse, nursing home social worker, hip hop artist, teacher, air defense control officer, catalytic case operator)? Give summary @ -Discussed with Dr. Calderón who accepted the admission as he did call ahead. Would like to be notified only if workup shows something. Requests infectious disease and Dr. Fajardo consults. Was smoking cessation discussed for >3mins.? @ -No Was critical care preformed (if so, how long)? @ -No Were there social determinants of health that impacted care today? How? (Homelessness, low income, unemployed, alcoholism, drug addiction, transportation, low edu. Level, literacy, decrease access to med. care, fci, rehab)? @ -No Was there de-escalation of care discussed even if they declined (Discuss DNR or withdrawal of care, Hospice)? DNR status @ -No What co-morbidities impacted this encounter? (DM, HTN, Smoking, COPD, CAD, Cancer, CVA, ARF, Chemo, Hep., AIDS, mental health diagnosis, sleep apnea, morbid obesity)? @ -Chronic lower extremity edema with venous stasis ulcers Was patient admitted / discharged? Hospital course, mention meds given and route, prescriptions, significant lab abnormalities, going to OR and other pertinent info. @ -Based on the patient's presentation and physical exam, patient presents emergency department complaining of lower extremity leg infections and edema. Somewhat chronic. Was sent by her PCP for admission and IV antibiotics. Vital signs are within acceptable limits. DVT ultrasound negative for any DVT. Labs are remarkable for slight lactic acidosis of 2.5 and patient will be given 500 cc fluid bolus. Culture sent. Patient started on vancomycin. Consults placed to Dr. Fajardo and infectious disease at patient's doctor Dr. Calderón's request. Patient will be admitted to the hospital at this time. She was in agreement this plan. Undiagnosed new problem with uncertain prognosis? @ -No Drug Therapy requiring intensive monitoring for toxicity (Heparin, Nitro, Insulin, Cardizem)? @ -No Were any procedures done? @ -No Diagnosis/symptom? @ -Venous stasis ulcers, cellulitis Acute, or Chronic, or Acute on Chronic? @ -Acute Uncomplicated (without systemic symptoms) or Complicated (systemic symptoms)? @ -Complicated Side effects of treatment? @ -No Exacerbation, Progression, or Severe Exacerbation? @ -No Poses a threat to life or bodily function? How? (Chest pain, USA, PA, pneumonia, PE, COPD, DKA, ARF, appy, cholecystitis, CVA, Diverticulitis, Homicidal, Suicidal, threat to staff... and all critical care pts) @ -Yes - Lab Data Result diagrams: 01/14/24 11:08 01/14/24 11:08 Lab Results 01/14/24 01/14/24 01/14/24 Range/Units 11:08 11:08 11:08 WBC 8.3 (3.8-10.6) k/uL RBC 4.60 (3.80-5.40) m/uL Hgb 14.1 (11.4-16.0) gm/dL Hct 42.5 (34.0-46.0) % MCV 92.4 (80.0-100.0) fL MCH 30.7 (25.0-35.0) pg MCHC 33.2 (31.0-37.0) g/dL RDW 14.7 (11.5-15.5) % Plt Count 306 (150-450) k/uL MPV 7.4 Neutrophils % 58 % Lymphocytes % 33 % Monocytes % 4 % Eosinophils % 2 % Basophils % 1 % Neutrophils # 4.8 (1.3-7.7) k/uL Lymphocytes # 2.8 (1.0-4.8) k/uL Monocytes # 0.4 (0-1.0) k/uL Eosinophils # 0.2 (0-0.7) k/uL Basophils # 0.1 (0-0.2) k/uL Sodium 142 (137-145) mmol/L Potassium 3.9 (3.5-5.1) mmol/L Chloride 109 H (98-107) mmol/L Carbon Dioxide 25 (22-30) mmol/L Anion Gap 8 mmol/L BUN 16 (7-17) mg/dL Creatinine 0.81 (0.52-1.04) mg/dL Est GFR (CKD-EPI)AfAm >90 (>60 ml/min/1.73 sqM) Est GFR (CKD-EPI)NonAf 78 (>60 ml/min/1.73 sqM) Glucose 123 H (74-99) mg/dL Lactic Ac Sepsis Rflx Plasma Lactic Acid Meet 2.5 H* (0.7-2.0) mmol/L Calcium 9.3 (8.4-10.2) mg/dL Total Bilirubin 0.6 (0.2-1.3) mg/dL AST 30 (14-36) U/L ALT 33 (4-34) U/L Alkaline Phosphatase 124 (38-126) U/L NT-Pro-B Natriuret Pep 68 pg/mL Total Protein 6.9 (6.3-8.2) g/dL Albumin 3.9 (3.5-5.0) g/dL 01/14/24 Range/Units 11:54 WBC (3.8-10.6) k/uL RBC (3.80-5.40) m/uL Hgb (11.4-16.0) gm/dL Hct (34.0-46.0) % MCV (80.0-100.0) fL MCH (25.0-35.0) pg MCHC (31.0-37.0) g/dL RDW (11.5-15.5) % Plt Count (150-450) k/uL MPV Neutrophils % % Lymphocytes % % Monocytes % % Eosinophils % % Basophils % % Neutrophils # (1.3-7.7) k/uL Lymphocytes # (1.0-4.8) k/uL Monocytes # (0-1.0) k/uL Eosinophils # (0-0.7) k/uL Basophils # (0-0.2) k/uL Sodium (137-145) mmol/L Potassium (3.5-5.1) mmol/L Chloride (98-107) mmol/L Carbon Dioxide (22-30) mmol/L Anion Gap mmol/L BUN (7-17) mg/dL Creatinine (0.52-1.04) mg/dL Est GFR (CKD-EPI)AfAm (>60 ml/min/1.73 sqM) Est GFR (CKD-EPI)NonAf (>60 ml/min/1.73 sqM) Glucose (74-99) mg/dL Lactic Ac Sepsis Rflx Y Plasma Lactic Acid Meet (0.7-2.0) mmol/L Calcium (8.4-10.2) mg/dL Total Bilirubin (0.2-1.3) mg/dL AST (14-36) U/L ALT (4-34) U/L Alkaline Phosphatase (38-126) U/L NT-Pro-B Natriuret Pep pg/mL Total Protein (6.3-8.2) g/dL Albumin (3.5-5.0) g/dL - EKG Data -: EKG Interpreted by Me EKG Comments: 12-lead Electrocardiogram Interpretation Note EKG was reviewed and interpreted by myself. 12-lead ECG performed at 1119 is interpreted by me as revealing normal sinus rhythm at a rate of 81 beats per minute. [place] is normal. ME interval is 144 ms, QRS duration is 81 ms, QTc is 406 ms.. There were no ST or T wave abnormalities to suggest myocardial ischemia or injury. R wave progression across the precordium was satisfactory. By my interpretation this EKG is non-diagnostic for acute ischemia. Disposition Clinical Impression: Cellulitis, Venous stasis ulcers Disposition: ADMITTED IP TO THIS HOSP Condition: Stable Time of Disposition: 13:08
[2024-01-14] MEDS: VANCOMYCIN 2,000 MG in SODIUM CHLORIDE 0.9% 500 ML 500 ML IVPB STA (13:31)
[2024-01-14] MEDS: SODIUM CHLORIDE 0.9% 500 ML 500 ML IV STA (14:17)
[2024-01-14] MEDS ORDERED: ALPRAZolam 0.25 MG TAB PO PRN (14:54)
[2024-01-14] MEDS ORDERED: FUROSEMIDE 40 MG TAB PO PRN (14:54)
[2024-01-14] MEDS ORDERED: PANTOPRAZOLE 40 MG TABLET PO PRN (14:54)
[2024-01-14] MEDS: ACETAMINOPHEN TAB 325 MG TAB PO PRN ×2 (15:40→22:30)
[2024-01-14] MEDS: HEPARIN SODIUM,PORCINE 5,000 UNIT/ML 1 ML VIAL SQ SCH (15:41)
[2024-01-14] MEDS: buPROPion 100 MG TAB PO SCH (16:49)
[2024-01-14] MEDS: ATORVASTATIN 20 MG TAB PO SCH (20:25)
[2024-01-14] MEDS: hydrOXYzine HCL 10 MG TAB PO SCH (20:25)
[2024-01-14] MEDS: FUROSEMIDE 10 MG/ML 4 ML VIAL IV SCH (20:27)
[2024-01-14] MEDS: NON FORMULARY DRUG (Progesterone, Micronized [Progesterone] 200 MG Capsule) PO SCH (20:27)
[2024-01-14] MEDS: LATANOPROST 0.005% OPHTH DROPS 2.5 ML BTL BOTH EYES SCH (20:27)
[2024-01-14] MEDS: TRIAMCINOLONE ACET 0.1% OINTMENT 15 GM TUBE TOPICAL SCH (20:39)
--- NOTE | 2024-01-14 22:24 | P.CONS ---
History of Present Illness - Reason for Consult Consult date: 01/14/24 Lower extremity cellulitis venous stasis ulcer Requesting physician: Mauro Rodriguez - Chief Complaint Increasing swelling redness discomfort bilateral leg x days - History of Present Illness Patient is a 63-year-old female past medical history significant for hypertension hyperlipidemia osteoarthritis reflux, the patient did have a bilateral lower extremity venous stasis dermatitis and apparently has been dealing with cellulitis over the last few weeks has been treated with a course of oral Keflex without any improvement patient has been sent to the hospital for IV antibiotic therapy. Patient mentioned having increasing swelling and redness to bilateral lower extremity that has been getting worse for the last week or so with more swelling redness and also complaining of pain patient describing the pain to be throbbing to sharp about 8 out of 10 without any radiation with associated swelling or redness did not have any skin breakdown or any drainage did have some chills on presentation to the hospital patient was afebrile patient was not tachycardic hypotensive or hypoxic and no need for supplemental oxygen white count was 8.3 creatinine was 0.81 her lactic acid was 2.5 liver enzymes are normal patient did have a venous Doppler those were negative for DVT patient also have a chest x- ray no acute cardiopulmonary process tibia-fibula x-ray were negative for any fracture patient was started on vancomycin infectious disease was consulted for further management of antibiotic therapy Review of Systems Positive point and negatives has been mentioned in the HPI, complete review of systems was performed and all other systems are negative Past Medical History Past Medical History: GERD/Reflux, Hyperlipidemia, Hypertension, Osteoarthritis (OA), Thyroid Disorder Additional Past Medical History / Comment(s): hiatal hernia, thyroid goiter History of Any Multi-Drug Resistant Organisms: None Reported Past Surgical History: Section, Cholecystectomy, Joint Replacement Additional Past Surgical History / Comment(s): thyroidectomy, jaison knee Past Anesthesia/Blood Transfusion Reactions: Postoperative Nausea & Vomiting (PONV) Past Psychological History: No Psychological Hx Reported, Depression Smoking Status: Never smoker Past Alcohol Use History: None Reported Past Drug Use History: None Reported - Past Family History Mother Family Medical History: No Reported History Additional Family Medical History / Comment(s): Mother is alive with history of coronary artery disease and CABG 4 vessel at age 75. Father Family Medical History: Diabetes Mellitus Additional Family Medical History / Comment(s): Father is secondary to diabetes. Sister(s) Additional Family Medical History / Comment(s): Patient has 1 sister with no major medical problems. Patient does not have any brothers. Patient has 2 daughters with anxiety. No sons. Medications and Allergies Home Medications Medication Instructions Recorded Confirmed Type buPROPion HCL [Bupropion HCl] 100 mg PO TID 11/19/16 01/14/24 History Progesterone, Micronized 200 mg PO HS 03/29/18 01/14/24 History [Progesterone] Latanoprost Ophth [Xalatan 0.005%] 1 drop BOTH EYES HS 09/01/19 01/14/24 History Metoprolol Succinate (ER) [Toprol 12.5 mg PO DAILY 09/01/19 01/14/24 History XL] Levothyroxine Sodium [Synthroid] 150 mcg PO DAILY 09/22/19 01/14/24 History ALPRAZolam [Xanax] 0.25 mg PO DAILY PRN 08/27/20 01/14/24 History Acetaminophen Tab [Tylenol] 650 mg PO Q6H PRN 01/14/24 01/14/24 History Amoxicillin 2,000 mg PO ONCE PRN 01/14/24 01/14/24 History Atorvastatin [Lipitor] 20 mg PO HS 01/14/24 01/14/24 History Cholecalciferol [Vitamin D3 (125 125 mcg PO DAILY 01/14/24 01/14/24 History Mcg = 5000 Iu)] Furosemide [Lasix] 40 mg PO BID PRN 01/14/24 01/14/24 History Hydrocortisone Oint 1 applic TOPICAL BID 01/14/24 01/14/24 History [Hydrocortisone 2.5% Oint] Ibuprofen [Motrin Ib] 600 mg PO Q8H PRN 01/14/24 01/14/24 History Magnesium(Unknown Dose) 1 tab PO HS 01/14/24 01/14/24 History Multivitamins, Thera [Multivitamin 1 tab PO DAILY 01/14/24 01/14/24 History (formulary)] Omeprazole 40 mg PO DAILY PRN 01/14/24 01/14/24 History Vitamin B Complex 1 cap PO DAILY 01/14/24 01/14/24 History Sulfamethox-Tmp 800-160Mg [Bactrim 1 tab PO Q12HR #20 tab 01/16/24 Rx DS 800-160 mg] Triamcinolone 0.1% Ointment 1 applic TOPICAL DAILY #80 gm 01/16/24 Rx [Kenalog 0.1% Ointment] Allergies Allergy/AdvReac Type Severity Reaction Status Date / Time No Known Allergies Allergy Verified 01/14/24 13:13 Physical Exam Vitals: Vital Signs Temp Pulse Resp BP Pulse Ox 01/14/24 11:05 97.9 F 92 16 186/84 98 Intake and Output 01/14/24 01/14/24 01/14/24 06:59 14:59 22:59 Other: Weight 135.624 kg GENERAL DESCRIPTION: Middle-aged female lying in bed, no distress. No tachypnea or accessory muscle of respiration use. HEENT: Shows Pallor , no scleral icterus. Oral mucous membrane is dry. No pharyngeal erythema or thrush NECK: Trachea central, no thyromegaly. LUNGS: Unlabored breathing. Clear to auscultation anteriorly. No wheeze or crackle. HEART: S1, S2, regular rate and rhythm. No loud murmur ABDOMEN: Soft, no tenderness , guarding or rigidity, no organomegaly EXTREMITIES: Bilateral lower extremity with diffuse swelling redness some superficial ulceration no foul-smelling drainage SKIN: No rash, no masses palpable. NEUROLOGICAL: The patient is awake, alert, oriented x3, mood and affect normal. Results CBC & Chem 7: 01/16/24 05:22 01/16/24 05:22 Labs: Abnormal Lab Results - Last 24 Hours (Table) 01/14/24 01/14/24 Range/Units 11:08 11:08 Chloride 109 H (98-107) mmol/L Glucose 123 H (74-99) mg/dL Plasma Lactic Acid Meet 2.5 H* (0.7-2.0) mmol/L Assessment and Plan (1) Bilateral lower leg cellulitis Current Visit: Yes Status: Acute Code(s): L03.116 - CELLULITIS OF LEFT LOWER LIMB; L03.115 - CELLULITIS OF RIGHT LOWER LIMB SNOMED Code(s): 353329845 (2) Failure of outpatient treatment Current Visit: Yes Status: Acute Code(s): Z78.9 - OTHER SPECIFIED HEALTH STATUS SNOMED Code(s): 078531019 Plan: 1patient with bilateral lower extremity chronic swelling concerning for venous stasis and did have a component of cellulitis failing outpatient oral Keflex mo re likely because of burden of disease and will need to cover for the gram- positive skin clement to the likely pathogen 2-nursing staff has been advised to abad the area of the redness we will apply zinc to the lower extremity followed by Ankit wrap from just above the toe to below the knee 3-vancomycin pharmacy to dose target trough of 15 while watching kidney function and Vanco trough closely Multiple question concern answered We will follow on clinical condition and cultures to further adjust medication if needed Thank you for this consultation we will follow the patient along with you Dictation was produced using [employer] dictation software. please excuse any grammatical, word or spelling errors.
[2024-01-15 03:47] LABS: Basophils # (A) 0.1 k/uL (0-0.2); Basophils % (A) 1 %; Eosinophils # (A) 0.2 k/uL (0-0.7); Eosinophils % (A) 2 %; HGB 12.2 gm/dL (11.4-16.0); Lymphocytes # (A) 2.6 k/uL (1.0-4.8); Lymphocytes % (A) 32 %; MCH 30.6 pg (25.0-35.0); MCV 92.6 fL (80.0-100.0); Mean Platelet Volume 7.1; Monocytes # (A) 0.4 k/uL (0-1.0); Monocytes % (A) 5 %; Neutrophils # (A) 4.7 k/uL (1.3-7.7); Neutrophils % (A) 58 %; Platelet Count 258 k/uL (150-450); RDW 14.4 % (11.5-15.5); WBC 8.1 k/uL (3.8-10.6)
[2024-01-15 03:58] LABS: African American GFR (CKD) >90 (>60 ml/min/1.73 sqM); Anion Gap 7 mmol/L; Blood Urea Nitrogen 13 mg/dL (7-17); Calcium 8.8 mg/dL (8.4-10.2); Carbon Dioxide 25 mmol/L (22-30); Chloride 107 mmol/L (98-107); Glucose 118 mg/dL (74-99); Non-African American GFR(CKD) 78 (>60 ml/min/1.73 sqM); Potassium 3.3 mmol/L (3.5-5.1); Sodium 139 mmol/L (137-145)
[2024-01-15] MEDS: VANCOMYCIN 2,000 MG in SODIUM CHLORIDE 0.9% 500 ML 500 ML IVPB SCH (04:30)
[2024-01-15] MEDS: LEVOTHYROXINE 75 MCG TAB PO SCH (06:35)
[2024-01-15] MEDS ORDERED: NON FORMULARY DRUG (Vitamin B Complex [Vitamin B Complex] 1 EACH Capsule) PO SCH (09:00)
[2024-01-15] MEDS: MULTIVITAMINS, THERA 1 EACH TAB PO SCH (09:35)
[2024-01-15] MEDS: CHOLECALCIFEROL 125 MCG (5000 IU) TABLET PO SCH (09:36)
[2024-01-15] MEDS: METOPROLOL SUCCINATE (ER) 25 MG TAB.ER.24H PO SCH (09:36)
--- NOTE | 2024-01-15 15:16 | P.HPIM ---
History of Present Illness H&P Date: 01/15/24 Chief Complaint: Bilateral lower extremity cellulitis with edema. HISTORY OF PRESENT ILLNESS: This is a 63-year-old female with a previous medical history significa nt for hypertension and hypertensive cardiovascular disease, hyperlipidemia, hypothyroidism, history of morbid obesity with venous stasis and stasis dermatitis, she was recently referred to see Dr. Fajardo from vascular surgery had a venous Doppler that was done the results still pending at the time of dictation, patient has been complaining of increased cellulitis of both lower extremities due to her significant stasis dermatitis with increased swelling in both lower extremities and venous ulcerations specially on the right lower extremity, she was prescribed 2 courses of oral antibiotic in the form of Keflex 20-day course without any improvement she came to the office yesterday with increased redness and increased itching along with increased edema with weeping from the right lower extremity from her venous ulcer so she was directed to go to the ER for evaluation for IV antibiotic and that failed outpatient management, patient was started on IV antibiotic in the form of vancomycin, she was admitted to the hospital she stated that she cannot tolerate Silvadene cream anymore because it campo her skin, therefore patient was started on triamcinolone acetonide cream to be applied to both lower extremity cover with Kerlix and wrapped with Ankit wrap keep the leg elevated she was also started on Lasix 40 mg IV push every 12 hours for aggressive diuresis, infectious disease consultation as well as vascular surgery consultation was obtained. REVIEW OF SYSTEMS: Constitutional: No documented fever, no chills, no night sweats. No weight change. No weakness, fatigue or lethargy. No daytime sleepiness. EENT: No headache. No blurred vision or double vision, no loss of vision. No loss of Hearing, no ringing in the ears, no dizziness. No nasal drainage or congestion. No epistaxis. No sore throat. Lungs: No shortness of breath, no cough, no sputum production. No wheezing. R eports dyspnea with activity. Cardiovascular: No chest pain, no lower extremity edema. No palpitations. No paroxysmal nocturnal dyspnea. No orthopnea. No lightheadedness or dizziness. No syncopal episodes. Abdominal: Reports abdominal pain. No nausea, vomiting. No diarrhea. No constipation. No bloody or tarry stools reports loss of appetite. Genitourinary: No dysuria, increased frequency, urgency. No urinary retention. Musculoskeletal: No myalgias. No muscle weakness, no gait dysfunction, no frequent falls. No back pain. No neck pain. Integumentary: right leg venous ulcers with bilateral cellulitis with increased redness and warmth, stasis dermatitis and increased itching Neurologic: No aphasia. No facial droop. No change in mentation. No head injury. No headache. No paralysis. No paresthesia. Psychiatric: No depression. positive for anxiety. No mood swings. Endocrine: No abnormal blood sugars. positive for weight change. PAST MEDICAL HISTORY: Hypertension and hypertensive cardiovascular disease. Mixed hyperlipidemia. Hypothyroidism. Anxiety disorder. Obesity with obstructive sleep apnea and obesity hypoventilation syndrome. Chronic venous stasis with stasis dermatitis. GERD with esophagitis. Osteoarthritis. PAST SURGICAL HISTORY: Bilateral knee replacement in September 2019 and January 2020. Cholecystectomy 2007 x 2. Colonoscopy Thyroidectomy 1986 SOCIAL HISTORY: Patient is a lifelong non-smoker, she denies any alcohol ingestion, she denies any drug use or abuse, she lives with her FAMILY HISTORY: Father at the age 67 from diabetes complication, mother is alive 84-year-old with a history of coronary artery disease status post coronary artery bypass graft x 4 with CVA, patient has 1 sister no major medical problem, she has 2 daughters 1 with anxiety and schizophrenia, the other 1 is okay, patient has no signs. PHYSICAL EXAMINATION: General: This is a 63-year-old female laying down in bed in no apparent distress. HEENT: Head is atraumatic, normocephalic, pupils were equal round reactive to light and recommendation, extraocular muscle movement were intact, sclera nonicteric, conjunctivae were pale, mucous membranes of the mouth are somewhat dry. Neck: Supple, no JVP, normal carotid upstroke bilaterally, no lymphadenopathy. Chest: Decreased breath sounds at the bases, few rhonchi, no expiratory wheezes, no chest wall tenderness, no intercostal retractions. Heart: First heart sound is normal, second heart sounds normal Abdomen: Soft, nontender, nondistended, positive bowel sound is normal there is BURT 2/6 located at the left sternal border Extremities: There is +2 edema, no calf tenderness, bilateral lower extremity cellulitis with increased warmth and redness and right small venous ulcers Neurologic examination: Patient is awake alert and oriented X3 , cranial nerves II-12 appear grossly intact, muscle power were 5 out of 5 in upper extremities and 5 out of 5 in bilateral lower extremities, deep tendon reflexes normal bilaterally. ASSESSMENT AND PLAN: 1. Bilateral lower extremity cellulitis with chronic venous stasis and stasis dermatitis with venous ulceration on the right lower extremity. Obtain culture from the venous ulcer, blood cultures x 2, start the patient on vancomycin, pharmacy to dose its peak and trough, patient had failed Keflex x 20 days without any improvement along with Silvadene cream, continue with triamcinolone acetonide 0.1% cream to be applied once every day wrapped with Kerlix wrap and keep the leg elevated, continue patient on Lasix 40 mg IV push every 12 hours, monitor the patient electrolyte, monitor for the patient magnesium level. 2. Chronic diastolic heart failure/cor pulmonale. Continue Lasix 40 mg IV push every 12 hours. Continue metoprolol ER 12.5 mg orally once every day. 3. Hypertension and hypertensive cardiovascular disease. Continue patient on metoprolol ER 12.5 mg orally once every day, monitor the patient blood pressure very closely. 4. Mixed hyperlipidemia. Continue atorvastatin 20 mg once every day, monitor lipid panel, keep LDL 55-70. 5. Hypothyroidism. Continue levothyroxine 150 mcg orally once every day, monitor TSH and free T4. 6. Dysfunctional uterine bleeding. Continue progesterone 200 mg orally once every day. 7. Vitamin D deficiency. Continue vitamin D3. 8. Anxiety disorder. Continue Wellbutrin 100 mg orally 3 times every day as well as Xanax as needed. 9. Glaucoma. Continue Xalatan 1 drop in both eyes at bedtime. 10. DVT prophylaxis. Continue patient on heparin 5000 units subcutaneously every 8 hours. 11. GI prophylaxis. Continue patient on Protonix 40 mg orally once every day. 12. Admit to inpatient. Estimated length of stay 2 midnights. 13. Patient is full code. Past Medical History Past Medical History: GERD/Reflux, Hyperlipidemia, Hypertension, Osteoarthritis (OA), Thyroid Disorder Additional Past Medical History / Comment(s): hiatal hernia, thyroid goiter History of Any Multi-Drug Resistant Organisms: None Reported Past Surgical History: Section, Cholecystectomy, Joint Replacement Additional Past Surgical History / Comment(s): thyroidectomy, jaison knee Past Anesthesia/Blood Transfusion Reactions: Postoperative Nausea & Vomiting (PONV) Past Psychological History: No Psychological Hx Reported, Depression Smoking Status: Never smoker Past Alcohol Use History: None Reported Past Drug Use History: None Reported - Past Family History Mother Family Medical History: No Reported History Additional Family Medical History / Comment(s): Mother is alive with history of coronary artery disease and CABG 4 vessel at age 75. Father Family Medical History: Diabetes Mellitus Additional Family Medical History / Comment(s): Father is secondary to diabetes. Sister(s) History Unknown: Yes Additional Family Medical History / Comment(s): Patient has 1 sister with no major medical problems. Patient does not have any brothers. Patient has 2 daughters with anxiety. No sons. Medications and Allergies Home Medications Medication Instructions Recorded Confirmed Type buPROPion HCL [Bupropion HCl] 100 mg PO TID 11/19/16 01/14/24 History Progesterone, Micronized 200 mg PO HS 03/29/18 01/14/24 History [Progesterone] Latanoprost Ophth [Xalatan 0.005%] 1 drop BOTH EYES HS 09/01/19 01/14/24 History Metoprolol Succinate (ER) [Toprol 12.5 mg PO DAILY 09/01/19 01/14/24 History XL] Levothyroxine Sodium [Synthroid] 150 mcg PO DAILY 09/22/19 01/14/24 History ALPRAZolam [Xanax] 0.25 mg PO DAILY PRN 08/27/20 01/14/24 History Acetaminophen Tab [Tylenol] 650 mg PO Q6H PRN 01/14/24 01/14/24 History Amoxicillin 2,000 mg PO ONCE PRN 01/14/24 01/14/24 History Atorvastatin [Lipitor] 20 mg PO HS 01/14/24 01/14/24 History Cholecalciferol [Vitamin D3 (125 125 mcg PO DAILY 01/14/24 01/14/24 History Mcg = 5000 Iu)] Furosemide [Lasix] 40 mg PO BID PRN 01/14/24 01/14/24 History Hydrocortisone Oint 1 applic TOPICAL BID 01/14/24 01/14/24 History [Hydrocortisone 2.5% Oint] Ibuprofen [Motrin Ib] 600 mg PO Q8H PRN 01/14/24 01/14/24 History Magnesium(Unknown Dose) 1 tab PO HS 01/14/24 01/14/24 History Multivitamins, Thera [Multivitamin 1 tab PO DAILY 01/14/24 01/14/24 History (formulary)] Omeprazole 40 mg PO DAILY PRN 01/14/24 01/14/24 History Vitamin B Complex 1 cap PO DAILY 01/14/24 01/14/24 History Allergies Allergy/AdvReac Type Severity Reaction Status Date / Time No Known Allergies Allergy Verified 01/14/24 13:13 Physical Exam Vitals: Vital Signs Temp Pulse Pulse Resp BP BP Pulse Ox 01/15/24 14:21 98.2 F 77 129/82 98 01/15/24 07:54 97.8 F 81 16 144/77 97 01/15/24 01:29 97.6 F 80 16 122/65 97 01/14/24 20:23 98.1 F 76 18 135/66 98 01/14/24 17:10 97.9 F 82 81 16 136/87 144/67 97 Intake and Output 01/15/24 01/15/24 01/15/24 06:59 14:59 22:59 Intake Total 490 Balance 490 Intake: Oral 490 Other: Voiding Method Toilet # Voids 0 1 Results CBC & Chem 7: 01/15/24 03:16 01/15/24 03:16 Labs: Abnormal Lab Results - Last 24 Hours (Table) 01/15/24 Range/Units 03:16 Potassium 3.3 L (3.5-5.1) mmol/L Glucose 118 H (74-99) mg/dL Microbiology - Last 24 Hours (Table) 01/14/24 12:13 Gram Stain - Preliminary Leg - Right Wound Culture - Preliminary Thrombosis Risk Factor Assmnt - Choose All That Apply Each Factor Represents 1 point: Obesity (BMI >25) Each Risk Factor Represents 2 Points: Age 61-74 years Thrombosis Risk Factor Assessment Total Risk Factor Score: 3 Thrombosis Risk Factor Assessment Level: Moderate Risk
[2024-01-16 06:32] LABS: ALT 30 U/L (4-34); AST 25 U/L (14-36); African American GFR (CKD) 81 (>60 ml/min/1.73 sqM); Albumin 3.5 g/dL (3.5-5.0); Albumin/Globulin Ratio 1.3; Alkaline Phosphatase 106 U/L (38-126); Anion Gap 8 mmol/L; Blood Urea Nitrogen 11 mg/dL (7-17); Calcium 8.9 mg/dL (8.4-10.2); Carbon Dioxide 30 mmol/L (22-30); Chloride 104 mmol/L (98-107); Globulin 2.8 g/dL; Glucose 103 mg/dL (74-99); Non-African American GFR(CKD) 71 (>60 ml/min/1.73 sqM); Potassium 3.4 mmol/L (3.5-5.1); Sodium 142 mmol/L (137-145); Total Bilirubin 0.4 mg/dL (0.2-1.3); Total Protein 6.3 g/dL (6.3-8.2)
[2024-01-16 09:07] LABS: Basophils # (A) 0.05 X 10*3/uL (0.00-0.10); Basophils % (A) 0.6 %; Eosinophils # (A) 0.21 X 10*3/uL (0.04-0.35); Eosinophils % (A) 2.6 %; HCT 39.7 % (37.2-46.3); HGB 13.1 g/dL (12.0-15.0); Lymphocytes # (A) 3.09 X 10*3/uL (0.90-5.00); Lymphocytes % (A) 38.6 %; MCH 30.6 pg (27.0-32.0); MCV 92.8 FL (80.0-97.0); Mean Platelet Volume 9.2 FL (9.5-12.2); Monocytes # (A) 0.63 X 10*3/uL (0.20-1.00); Monocytes % (A) 7.9 %; NRBC Per 100 WBC 0 X 10*3/uL (0.00-0.01); Neutrophils # (A) 3.99 X 10*3/uL (1.80-7.70); Neutrophils % (A) 49.9 %; Platelet Count 268 X 10*3/uL (140-440); RBC 4.28 X 10*6/uL (4.10-5.20); RDW 14.4 % (11.5-14.5)
[2024-01-16 15:16] VITALS: BP 150/78; PULSE 78; RESP 16; TEMP 98
--- NOTE | 2024-01-16 15:18 | P.PN ---
Subjective Progress Note Date: 01/15/24 Principal diagnosis: Reason for follow-up is bilateral lower extremity cellulitis Patient is a 63-year-old female past medical history significant for hypertension hyperlipidemia osteoarthritis reflux, the patient did have a bilateral lower extremity venous stasis dermatitis and apparently has been dealing with cellulitis over the last few weeks has been treated with a course of oral Keflex without any improvement patient has been sent to the hospital for IV antibiotic therapy. On today's visit that is 01/15/2024, Patient is afebrile patient is currently on room air and denies having any shortness of breath, the patient denies any chest pain or cough, the patient denies any nausea vomiting did not have any abdominal pain and no diarrhea patient swelling discomfort lower extremity has decreased in intensity. Patient did have white count of 8.1 creatinine 0.81 cultures currently pending Objective - Vital Signs Vital signs: Vital Signs Temp 97.8 F 01/15/24 07:54 Pulse 81 01/15/24 07:54 Resp 16 01/15/24 07:54 BP 144/77 01/15/24 07:54 Pulse Ox 97 01/15/24 07:54 FiO2 Intake & Output 01/14/24 01/15/24 01/15/24 18:59 06:59 18:59 Intake Total 490 Balance 490 Weight 139.9 kg Intake: Oral 490 Other: Voiding Method Toilet Toilet # Voids 0 - Exam GENERAL DESCRIPTION: Middle-aged female up in bed in no distress RESPIRATORY SYSTEM: Unlabored breathing , decreased breath sounds at bases HEART: S1 S2 regular rate and rhythm , ABDOMEN: Soft , no tenderness EXTREMITIES: Bilateral lower extremity swelling redness slightly decreased - Labs CBC & Chem 7: 01/16/24 05:22 01/16/24 05:22 Labs: Abnormal Lab Results - Last 24 Hours (Table) 01/14/24 01/15/24 Range/Units 11:08 03:16 Potassium 3.3 L (3.5-5.1) mmol/L Glucose 118 H (74-99) mg/dL Plasma Lactic Acid Meet 2.5 H* (0.7-2.0) mmol/L Microbiology - Last 24 Hours (Table) 01/14/24 12:13 Gram Stain - Preliminary Leg - Right Wound Culture - Preliminary Assessment and Plan (1) Bilateral lower leg cellulitis Current Visit: Yes Status: Acute Code(s): L03.116 - CELLULITIS OF LEFT LOWER LIMB; L03.115 - CELLULITIS OF RIGHT LOWER LIMB SNOMED Code(s): 930556230 (2) Failure of outpatient treatment Current Visit: Yes Status: Acute Code(s): Z78.9 - OTHER SPECIFIED HEALTH STATUS SNOMED Code(s): 210800249 Plan: 1patient with bilateral lower extremity chronic swelling concerning for venous stasis and did have a component of cellulitis failing outpatient oral Keflex more likely because of burden of disease and will need to cover for the gram- positive skin clement to the likely pathogen 2-patient to continue local wound care with zinc to the lower extremity followed by Ankit wrap from just above the toe to below the knee 3 patient to continue with vancomycin pharmacy to dose target trough of 15 while watching kidney function and Vanco trough closely Dictation was produced using [employer] dictation software. please excuse any grammatical, word or spelling errors. Time with Patient: Less than 30
--- NOTE | 2024-01-16 15:19 | P.PN ---
Subjective Progress Note Date: 01/16/24 Principal diagnosis: Reason for follow-up is bilateral lower extremity cellulitis Patient is a 63-year-old female past medical history significant for hypertension hyperlipidemia osteoarthritis reflux, the patient did have a bilateral lower extremity venous stasis dermatitis and apparently has been dealing with cellulitis over the last few weeks has been treated with a course of oral Keflex without any improvement patient has been sent to the hospital for IV antibiotic therapy. On today's visit that is 01/16/2024, patient has been afebrile, patient is breathing comfortably and is currently on room air, patient denies having any significant cough no chest pain shortness of breath, patient denies nausea vomiting or diarrhea and no abdominal pain, the patient bilateral extremity swelling redness has decreased discomfort has decreased patient feeling better insisting on going home. Patient did have a white count of 8.0, creatinine 0.88 culture has been negative so far Objective - Vital Signs Vital signs: Vital Signs Temp 98.1 F 01/16/24 07:00 Pulse 54 L 01/16/24 07:00 Resp 18 01/16/24 07:00 BP 149/80 01/16/24 07:00 Pulse Ox 99 01/16/24 07:00 FiO2 Intake & Output 01/15/24 01/16/24 01/16/24 18:59 06:59 18:59 Intake Total 608 118 Balance 608 118 Intake: Oral 608 118 Other: Voiding Method Toilet Toilet # Voids 1 4 - Exam GENERAL DESCRIPTION: Middle-aged female up in bed in no distress RESPIRATORY SYSTEM: Unlabored breathing , decreased breath sounds at bases HEART: S1 S2 regular rate and rhythm , ABDOMEN: Soft , no tenderness EXTREMITIES: Bilateral lower extremity swelling redness slightly decreased - Labs CBC & Chem 7: 01/16/24 05:22 01/16/24 05:22 Labs: Abnormal Lab Results - Last 24 Hours (Table) 01/16/24 01/16/24 Range/Units 05:22 05:22 MPV 9.2 L (9.5-12.2) FL Potassium 3.4 L (3.5-5.1) mmol/L Glucose 103 H (74-99) mg/dL Microbiology - Last 24 Hours (Table) 01/14/24 12:13 Gram Stain - Final Leg - Right Wound Culture - Final 01/14/24 11:15 Blood Culture - Preliminary Blood 01/14/24 11:09 Blood Culture - Preliminary Blood Assessment and Plan (1) Bilateral lower leg cellulitis Current Visit: Yes Status: Acute Code(s): L03.116 - CELLULITIS OF LEFT LOWER LIMB; L03.115 - CELLULITIS OF RIGHT LOWER LIMB SNOMED Code(s): 391242270 (2) Failure of outpatient treatment Current Visit: Yes Status: Acute Code(s): Z78.9 - OTHER SPECIFIED HEALTH STATUS SNOMED Code(s): 046750973 Plan: 1patient with bilateral lower extremity chronic swelling concerning for venous stasis and did have a component of cellulitis failing outpatient oral Keflex more likely because of burden of disease and will need to cover for the gram- positive skin clement to the likely pathogen, patient seem to have shown some clinical improvement patient has been insisting on going home culture has been negative for any resistant pathogen failing outpatient oral Keflex will suggest Bactrim DS 1 twice daily for 10 days on discharge in addition to the bilateral lower extremity compression to keep the swelling down and prevent recurrent cellulitis Dictation was produced using [employer] dictation software. please excuse any grammatical, word or spelling errors. Time with Patient: Less than 30
--- NOTE | 2024-01-16 15:19 | P.DS ---
Providers Date of admission: 01/14/24 13:19 Expected date of discharge: 01/16/24 Attending physician: Rajan Calderón Consults: 01/14/24 13:16 Consult Physician Routine Consulting Provider: Ramy Fajardo Consult Reason/Comments: lower extremity venous stasis ulcers Do you want consulting provider notified?: Yes Consult Physician Routine Consulting Provider: Tyra Ahuja Consult Reason/Comments: LE cellulitis, venous stasis ulcers Do you want consulting provider notified?: Yes Primary care physician: Rajan Calderón Patient Condition at Discharge: Stable Plan - Discharge Summary Discharge Rx Participant: No New Discharge Prescriptions: New Triamcinolone 0.1% Ointment [Kenalog 0.1% Ointment] 1 applic TOPICAL DAILY #80 gm Sulfamethox-Tmp 800-160Mg [Bactrim DS 800-160 mg] 1 tab PO Q12HR #20 tab Continue buPROPion HCL [Bupropion HCl] 100 mg PO TID Progesterone, Micronized [Progesterone] 200 mg PO HS Metoprolol Succinate (ER) [Toprol XL] 12.5 mg PO DAILY Latanoprost Ophth [Xalatan 0.005%] 1 drop BOTH EYES HS Levothyroxine Sodium [Synthroid] 150 mcg PO DAILY ALPRAZolam [Xanax] 0.25 mg PO DAILY PRN PRN Reason: Anxiety Amoxicillin 2,000 mg PO ONCE PRN PRN Reason: 1 hour prior to dental appt Vitamin B Complex 1 cap PO DAILY Multivitamins, Thera [Multivitamin (formulary)] 1 tab PO DAILY Ibuprofen [Motrin Ib] 600 mg PO Q8H PRN PRN Reason: Pain Hydrocortisone Oint [Hydrocortisone 2.5% Oint] 1 applic TOPICAL BID Omeprazole 40 mg PO DAILY PRN PRN Reason: Heartburn/Gerd Magnesium(Unknown Dose) 1 tab PO HS Furosemide [Lasix] 40 mg PO BID PRN PRN Reason: Edema Cholecalciferol [Vitamin D3 (125 Mcg = 5000 Iu)] 125 mcg PO DAILY Atorvastatin [Lipitor] 20 mg PO HS Acetaminophen Tab [Tylenol] 650 mg PO Q6H PRN PRN Reason: Fever And/ Or Pain Discharge Medication List buPROPion HCL [Bupropion HCl] 100 mg PO TID 11/19/16 [History] Progesterone, Micronized [Progesterone] 200 mg PO HS 03/29/18 [History] Latanoprost Ophth [Xalatan 0.005%] 1 drop BOTH EYES HS 09/01/19 [History] Metoprolol Succinate (ER) [Toprol XL] 12.5 mg PO DAILY 09/01/19 [History] Levothyroxine Sodium [Synthroid] 150 mcg PO DAILY 09/22/19 [History] ALPRAZolam [Xanax] 0.25 mg PO DAILY PRN 08/27/20 [History] Acetaminophen Tab [Tylenol] 650 mg PO Q6H PRN 01/14/24 [History] Amoxicillin 2,000 mg PO ONCE PRN 01/14/24 [History] Atorvastatin [Lipitor] 20 mg PO HS 01/14/24 [History] Cholecalciferol [Vitamin D3 (125 Mcg = 5000 Iu)] 125 mcg PO DAILY 01/14/24 [History] Furosemide [Lasix] 40 mg PO BID PRN 01/14/24 [History] Hydrocortisone Oint [Hydrocortisone 2.5% Oint] 1 applic TOPICAL BID 01/14/24 [History] Ibuprofen [Motrin Ib] 600 mg PO Q8H PRN 01/14/24 [History] Magnesium(Unknown Dose) 1 tab PO HS 01/14/24 [History] Multivitamins, Thera [Multivitamin (formulary)] 1 tab PO DAILY 01/14/24 [History] Omeprazole 40 mg PO DAILY PRN 01/14/24 [History] Vitamin B Complex 1 cap PO DAILY 01/14/24 [History] Sulfamethox-Tmp 800-160Mg [Bactrim DS 800-160 mg] 1 tab PO Q12HR #20 tab 01/16/24 [Rx] Triamcinolone 0.1% Ointment [Kenalog 0.1% Ointment] 1 applic TOPICAL DAILY #80 gm 01/16/24 [Rx] Follow up Appointment(s)/Referral(s): Rajan Calderón MD [Primary Care Provider] - 1 Week Tyra Ahuja MD [STAFF PHYSICIAN] - 1 Week Patient Instructions/Handouts: Cellulitis (GEN) Discharge Disposition: HOME SELF-CARE
[2024-01-17] MEDS ORDERED: VANCOMYCIN TROUGH DUE 1 EACH MISC MISCELLANE ONE (03:00)
== END 2024-01-16 17:45 | disposition home or self-care (01) ==
LOC: EC 11:04 → 1SOBS 13:19 → 6NMEDSUR 01-15 08:00
PROVIDERS: ADMIT Internal Medicine; ATTEND Internal Medicine
DX: L03.115 Cellulitis of right lower limb (principal); L03.116 Cellulitis of left lower limb; I87.8 Other specified disorders of veins; I87.2 Venous insufficiency (chronic) (peripheral); E89.0 Postprocedural hypothyroidism; F32.A Depression, unspecified; I11.0 Hypertensive heart disease with heart failure; I50.32 Chronic diastolic (congestive) heart failure; E78.2 Mixed hyperlipidemia; F41.9 Anxiety disorder, unspecified; K21.00 Gastro-esophageal reflux disease with esophagitis, without bleeding; M19.90 Unspecified osteoarthritis, unspecified site; N93.8 Other specified abnormal uterine and vaginal bleeding; E55.9 Vitamin D deficiency, unspecified; H40.9 Unspecified glaucoma; E66.2 Morbid (severe) obesity with alveolar hypoventilation; Z68.42 Body mass index [BMI] 45.0-49.9, adult; Z79.890 Hormone replacement therapy; Z79.899 Other long term (current) drug therapy
CPT/HCPCS: 96376 ×2; 96366 ×3; 96367; 96372 ×2; 96375; 96365; 99285; 36415; 83880; 80053 ×2; 80048; 83605; 85025 ×3; 87040; 87070; 87205; 87075; 73590; 71045; 93970; G0378 ×4; J3370 ×3; J1644 ×2; J1940 ×3

== ENCOUNTER → 2025-02-04 | Outpatient (CLI) | payer BC ==
--- NOTE | 2025-02-04 15:17 | MM ---
Reason for Exam: Screening (asymptomatic). Last mammogram was performed 1 year(s) and 3 month(s) ago. Patient History: Menarche at age 9. First Full-Term at age 36. Late child-bearing (after 30). Postmenopausal. Currently using Progesterone, for 9 years. Hormonal Contraceptives for 7 years from age 28 until age 35. 1995, Benign Excisional Biopsy on the left side. 1995, Benign Excisional Biopsy on the left side. Maternal aunt had breast cancer, age 55. Maternal aunt had ovarian cancer. Risk Values: Veena 5 year model risk: 3.7%. NCI Lifetime model risk: 14.2%. Prior Study Comparison: 08/24/2021 Bilateral Screening Mammogram, [facility]. 08/27/2022 Bilateral MG 3D screening mammo w/cad, [facility]. 11/11/2023 Bilateral MG 3D screening mammo w/cad, [facility]. Tissue Density: There are scattered areas of fibroglandular density. Findings: Analyzed By CAD. There is no suspicious group of microcalcifications in either breast. Increasing 5 mm nodular density upper outer right breast 5.7 cm from the nipple. Additional views and ultrasound recommended. Overall Assessment: Incomplete: need additional imaging evaluation, BI-RAD 0 Management: Diagnostic Mammogram of the right breast. . Patient should continue monthly self-breast exams. A clinical breast exam by your physician is recommended on an annual basis. This exam should not preclude additional follow-up of suspicious palpable abnormalities. Note on Veena scores and lifetime risk: 1. A Veena score greater than 3% is considered moderate risk. If this is the case, consider specialist referral to assess eligibility for a risk reducing agent. 2. If overall lifetime risk for the development of breast cancer is 20% or higher, the patient may qualify for future screening with alternating mammogram and breast MRI. [facility], , 02/04/2025 3:14 PM. Electronically signed and approved by: Catalino Ramirez M.D. Radiolog[facility]
== END | disposition home or self-care (01) ==
LOC: RADMAMWWP 14:54
PROVIDERS: ATTEND Obstetrics & Gynecology
DX: Z12.31 Encounter for screening mammogram for malignant neoplasm of breast (principal); R92.323 Mammographic fibroglandular density, bilateral breasts; Z78.0 Asymptomatic menopausal state; Z80.3 Family history of malignant neoplasm of breast; Z92.0 Personal history of contraception
CPT/HCPCS: 77063; 77067

== ENCOUNTER → 2025-02-11 | Outpatient (CLI) | payer BC ==
--- NOTE | 2025-02-11 10:48 | MM ---
Reason for Exam: Additional evaluation requested from abnormal screening. Last screening mammogram was performed less than 1 month ago. Patient History: Menarche at age 9. First Full-Term at age 36. Late child-bearing (after 30). Postmenopausal. Currently using Progesterone, for 9 years. Hormonal Contraceptives for 7 years from age 28 until age 35. 1995, Benign Excisional Biopsy on the left side. 1995, Benign Excisional Biopsy on the left side. Maternal aunt had breast cancer, age 55. Maternal aunt had ovarian cancer. Risk Values: Veena 5 year model risk: 3.7%. NCI Lifetime model risk: 14.2%. Tissue Density: Right: There are scattered areas of fibroglandular density. Findings: Analyzed By CAD. A question upper outer quadrant focal asymmetry anterior to middle depth appears less pronounced on additional views with an appearance unchanged from prior exams. This supports a benign etiology. Overall Assessment: Benign, BI-RAD 2 Management: Screening Mammogram of both breasts in 1 year. See note below in regards to the patient's increased 5 year Veena score. Results were given to the patient verbally at the time of exam. Patient should continue monthly self-breast exams. A clinical breast exam by your physician is recommended on an annual basis. This exam should not preclude additional follow-up of suspicious palpable abnormalities. Note on Veena scores and lifetime risk: 1. A Veena score greater than 3% is considered moderate risk. If this is the case, consider specialist referral to assess eligibility for a risk reducing agent. 2. If overall lifetime risk for the development of breast cancer is 20% or higher, the patient may qualify for future screening with alternating mammogram and breast MRI. [facility], , 02/11/2025 10:42 AM. Electronically signed and approved by: Ashley Galaviz M.D. Radiologist
== END | disposition home or self-care (01) ==
LOC: RADMAMWWP 10:23
PROVIDERS: ATTEND Obstetrics & Gynecology
DX: R92.8 Other abnormal and inconclusive findings on diagnostic imaging of breast (principal); R92.321 Mammographic fibroglandular density, right breast; Z78.0 Asymptomatic menopausal state; Z79.3 Long term (current) use of hormonal contraceptives; Z80.3 Family history of malignant neoplasm of breast
CPT/HCPCS: 77061; 77065

== ENCOUNTER → 2025-06-03 | Outpatient (CLI) | payer BC ==
--- NOTE | 2025-06-03 13:00 | XR ---
EXAMINATION TYPE: XR femur bilateral DATE OF EXAM: 06/03/2025 12:33 PM INDICATION: Patient age:Female; 64 years old; Reason for study: M25.551 M25.552 Pain bilat hips; pain COMPARISON: Bilateral tibia/fibular radiographs 01/14/2024 TECHNIQUE: Both femurs were examined in frontal and lateral projections. FINDINGS: Post surgical changes from bilateral knee arthroplasty. Hardware appears intact with appro priate alignment. No evidence of acute osseous pathology, joint dislocation, or soft tissue swelling. No significant joint space narrowing or osteophytosis of the hips. No periosteal reaction or osseous erosions. IMPRESSION: 1. No acute osseous pathology. 2. Bilateral knee arthroplasty changes. [facility], , 06/03/2025 12:57 PM
== END | disposition home or self-care (01) ==
LOC: RADXRMAIN 11:59
PROVIDERS: ATTEND Internal Medicine
DX: M25.551 Pain in right hip (principal); M25.552 Pain in left hip; Z96.653 Presence of artificial knee joint, bilateral